=== PATIENT | male | born 1950 | race Caucasian/White ===

== ENCOUNTER 2022-02-25 08:01 | Outpatient (REF) | payer MEDICARE, SELFPAY ==
--- NOTE | ~2022-02-25 | XR_ITS ---
EXAMINATION: XR LUMBOSACRAL SPINE CLINICAL INFORMATION: M54.50 - Low back pain, unspecified COMPARISON: None TECHNIQUE: Three views of the lumbosacral spine. FINDINGS: There is normal segmentation with 5 nonrib-bearing lumbar vertebrae. There is mild loss of height vertebral body L1, possibly chronic. There is bridging anterior osteophyte at T12-L1 and partial anterior bridging osteophyte L1-L2. There are degenerative disc changes lower thoracic spine. Prominent lumbar degenerative disc changes are present at L4-L5 with prominent disc narrowing, endplate sclerosis, and vertebral osteophytes. Lesser degenerative disc changes at L3-L4. Facet degeneration is greatest from L3-S1. The SI joints and visualized sacrum are unremarkable. There is a left hip replacement. XR/XR lumbar spine 2-3V IMPRESSION: -Mild loss of height vertebral body L1, possibly chronic with associated bridging anterior osteophyte. -Prominent degenerative disc changes L4-L5. Lesser degenerative disc changes L5 L3-04. -Multilevel facet degeneration, L3-S1.
[2022-02-25 11:26] LABS: MANUAL DIFF FLAG NO
[2022-02-25 11:26] LABS: Appearance Urine HAZY; Color Urine YELLOW; Glucose Urine UA NEG (NEG); Leukocyte Esterase Urine NEG (NEG); Nitrite Urine NEG (NEG); Specific Gravity - Urine 1.025 (1.005-1.025); Urine Blood NEG (NEG); Urine Ketones NEG (NEG); Urine Protein NEG (NEG-TRACE)
[2022-02-25 11:33] LABS: Basophils Percent Auto 0.9 % (0-2); Eosinophils Absolute Auto 0.5 X10*3/uL (0.0-0.4); Eosinophils Percent Auto 10.6 % (0-4); Hematocrit 44.3 % (42.0-52.0); Hemoglobin 14.9 g/dl (14.0-18.0); Imm Gran Abs Auto 0.01 X10*3/uL (0.00-0.03); Imm Gran Pct Auto 0.2 % (0.0-0.4); Lymphocytes Absolute Auto 1.6 X10*3/uL (1.2-4.9); Lymphocytes Percent Auto 35.4 % (20-40); Mean Corpuscular HGB Conc 33.6 g/dl (31.0-36.0); Mean Corpuscular Hemoglobin 31.9 pg (27.0-33.0); Mean Corpuscular Volume 94.9 fL (80.0-98.0); Mean Platelet Volume 9.4 fL (9.4-12.4); Monocytes Absolute Auto 0.5 X10*3/uL (0.1-1.2); Monocytes Percent Auto 11.3 % (2-11); Neutrophils Absolute Auto 1.8 x10*3/uL (2.0-8.3); Neutrophils Percent Auto 41.6 % (45-73); Platelet Count 254 X10*3/uL (160-400); Red Blood Count 4.67 X10*6/uL (4.60-5.80); Red Cell Distribution Width 11.9 % (11.0-16.0); White Blood Count 4.4 X10*3/uL (4.8-10.8)
[2022-02-25 12:11] LABS: Prostate Specific Antigen Scr 0.49 ng/mL (<0.05-4.0)
[2022-02-25 12:12] LABS: Alanine Aminotransferase 32 U/L (0-40); Albumin Level 4.5 g/dL (3.5-5.0); Alkaline Phosphatase 92 U/L (39-117); Anion Gap 13 (12-20); Aspartate Amino Transferase 37 U/L (5-37); Bilirubin Total 0.6 mg/dL (0.0-1.0); Blood Urea Nitrogen 10 mg/dL (9-16); Calcium 9.5 mg/dL (8.4-10.2); Carbon Dioxide 28 mmol/L (22-29); Chloride 103 mmol/L (96-108); Cholesterol 236 mg/dL; Estimated Glomerular Filt Rate > 60; Glucose Fasting 102 mg/dL (60-99); HDL Cholesterol 80 mg/dL; LDL Cholesterol Calculated 143 mg/dl; Potassium 4.5 mmol/L (3.3-5.1); Sodium 139 mmol/L (135-145); Total Protein 7.7 g/dL (6.5-8.0); Triglycerides 69 mg/dL
== END 2022-02-25 08:02 | disposition home or self-care (01) ==
LOC: HO.HMGCLDS 08:01
PROVIDERS: Visit Provider Nurse Practitioner Family
DX: Z12.5 Encounter for screening for malignant neoplasm of prostate (principal); M54.50 Low back pain, unspecified; I10 Essential (primary) hypertension
CPT/HCPCS: 36415; 72100; 80053; 80061; 81003; 84153; 84443; 85025

== ENCOUNTER 2022-04-26 07:41 | Outpatient (REF) | payer MEDICARE, SELFPAY ==
[2022-04-26 11:49] LABS: Cholesterol 233 mg/dL; HDL Cholesterol 80 mg/dL; LDL Cholesterol Calculated 138 mg/dl; Triglycerides 75 mg/dL
== END 2022-04-26 07:42 | disposition home or self-care (01) ==
LOC: HO.HMGCLDS 07:41
PROVIDERS: Visit Provider Nurse Practitioner Family
DX: E78.5 Hyperlipidemia, unspecified (principal)
CPT/HCPCS: 36415; 80061

== ENCOUNTER 2022-06-25 11:32 | Outpatient (REF) | payer MEDICARE, SELFPAY ==
--- NOTE | ~2022-06-25 | XR_ITS ---
EXAMINATION: XR ANKLE, RIGHT CLINICAL INFORMATION: M25.571 - Pain in right ankle and joints of right foot COMPARISON: None TECHNIQUE: AP, lateral, and mortise views of the right ankle. FINDINGS: There is no fracture, dislocation, destructive process. The ankle mortise is symmetric. There is no ankle joint narrowing or erosive change or chondrocalcinosis. No visible osteochondral lesion talar dome. There are 2 incidental corticated ossicles adjacent to tip medial malleolus. There is borderline plantar calcaneal spur and larger posterior calcaneal spur with some corticated mineralization in the distal Achilles. The retrocalcaneal recess is preserved. Subtalar joint is unremarkable. There are scattered atherosclerotic calcifications vasculature. XR/XR ankle RT min 3V IMPRESSION: -No fracture or destructive process. -No ankle or subtalar joint narrowing. -Posterior and plantar calcaneal spurs.
== END 2022-06-25 11:33 | disposition home or self-care (01) ==
LOC: HO.HMGCX 11:32
PROVIDERS: PCP Nurse Practitioner Family; Visit Provider Nurse Practitioner Family
DX: M25.571 Pain in right ankle and joints of right foot (principal)
CPT/HCPCS: 73610

== ENCOUNTER 2022-09-20 09:02 | Outpatient (REF) | payer MEDICARE, SELFPAY ==
[2022-09-20 11:22] LABS: Appearance Urine Clear; Color Urine Dark Yellow; Glucose Urine UA Negative (Negative); Leukocyte Esterase Urine Negative (Negative); Nitrite Urine Negative (Negative); UMIC TRIGGER UACC YES; Urine Blood Negative (Negative); Urine Ketones Trace mg/dL (Negative); Urine Protein 100 (2+) mg/dL (Neg-Trace)
[2022-09-20 11:34] LABS: Bacteria Urine None Seen (None Seen); Hyaline Casts Urine >20 /LPF (0-2); RBC Urine 0-2 /HPF (0-2); WBC Urine 0-5 /HPF (0-5)
== END 2022-09-20 09:03 | disposition home or self-care (01) ==
LOC: HO.HMGCLDS 09:02
PROVIDERS: PCP Nurse Practitioner Family; Visit Provider Nurse Practitioner Family
DX: I10 Essential (primary) hypertension (principal); E78.5 Hyperlipidemia, unspecified
CPT/HCPCS: 81001

== ENCOUNTER 2022-10-12 08:06 | Outpatient (REF) | payer MEDICARE, SELFPAY ==
[2022-10-12 11:19] LABS: MANUAL DIFF FLAG NO
[2022-10-12 11:35] LABS: Basophils Absolute Auto 0.1 X10*3/uL (0.0-0.2); Basophils Percent Auto 1.1 % (0-2); Eosinophils Absolute Auto 0.5 X10*3/uL (0.0-0.4); Eosinophils Percent Auto 9.8 % (0-4); Hematocrit 40.7 % (42.0-52.0); Hemoglobin 13.8 g/dl (14.0-18.0); Imm Gran Abs Auto 0.01 X10*3/uL (0.00-0.03); Imm Gran Pct Auto 0.2 % (0.0-0.4); Lymphocytes Absolute Auto 1.5 X10*3/uL (1.2-4.9); Lymphocytes Percent Auto 32.8 % (20-40); Mean Corpuscular HGB Conc 33.9 g/dl (31.0-36.0); Mean Corpuscular Hemoglobin 32.1 pg (27.0-33.0); Mean Corpuscular Volume 94.7 fL (80.0-98.0); Mean Platelet Volume 9.4 fL (9.4-12.4); Monocytes Absolute Auto 0.5 X10*3/uL (0.1-1.2); Neutrophils Absolute Auto 2.1 x10*3/uL (2.0-8.3); Neutrophils Percent Auto 46.1 % (45-73); Platelet Count 255 X10*3/uL (160-400); Red Cell Distribution Width 12.1 % (11.0-16.0); White Blood Count 4.6 X10*3/uL (4.8-10.8)
[2022-10-12 12:19] LABS: Alanine Aminotransferase 28 U/L (0-40); Albumin Level 4.5 g/dL (3.5-5.0); Alkaline Phosphatase 84 U/L (39-117); Anion Gap 15 (12-20); Aspartate Amino Transferase 33 U/L (5-37); Bilirubin Total 0.6 mg/dL (0.0-1.0); Blood Urea Nitrogen 10 mg/dL (9-16); Carbon Dioxide 25 mmol/L (22-29); Chloride 101 mmol/L (96-108); Cholesterol 184 mg/dL; Estimated Glomerular Filt Rate > 60; Glucose Fasting 96 mg/dL (60-99); HDL Cholesterol 77 mg/dL; LDL Cholesterol Calculated 89 mg/dl; Potassium 4.2 mmol/L (3.3-5.1); Sodium 137 mmol/L (135-145); Total Protein 7.3 g/dL (6.5-8.0); Triglycerides 92 mg/dL
[2022-10-12 12:41] LABS: TSH reflex Free T4 1.82 uIU/mL (0.32-4.0)
== END 2022-10-12 08:07 | disposition home or self-care (01) ==
LOC: HO.HMGCLDS 08:06
PROVIDERS: PCP Nurse Practitioner Family; Visit Provider Nurse Practitioner Family
DX: E78.5 Hyperlipidemia, unspecified (principal); I10 Essential (primary) hypertension
CPT/HCPCS: 36415; 80053; 80061; 84443; 85025

== ENCOUNTER 2022-11-18 11:44 | Outpatient (REF) | payer MEDICARE, SELFPAY ==
[2022-11-18 13:54] LABS: Hematocrit 37.7 % (42.0-52.0); Hemoglobin 13.4 g/dl (14.0-18.0); MANUAL DIFF FLAG NO; Mean Corpuscular Volume 91.7 fL (80.0-98.0); Red Blood Count 4.11 X10*6/uL (4.60-5.80); White Blood Count 7.1 X10*3/uL (4.8-10.8)
[2022-11-18 13:55] LABS: Basophils Absolute Auto 0.1 X10*3/uL (0.0-0.2); Basophils Percent Auto 0.7 % (0-2); Eosinophils Absolute Auto 0.4 X10*3/uL (0.0-0.4); Eosinophils Percent Auto 5.5 % (0-4); Imm Gran Abs Auto 0.01 X10*3/uL (0.00-0.03); Imm Gran Pct Auto 0.1 % (0.0-0.4); Lymphocytes Absolute Auto 1.1 X10*3/uL (1.2-4.9); Lymphocytes Percent Auto 15.8 % (20-40); Mean Corpuscular HGB Conc 35.5 g/dl (31.0-36.0); Mean Corpuscular Hemoglobin 32.6 pg (27.0-33.0); Mean Platelet Volume 9.5 fL (9.4-12.4); Monocytes Absolute Auto 1.1 X10*3/uL (0.1-1.2); Monocytes Percent Auto 15.2 % (2-11); Neutrophils Absolute Auto 4.5 x10*3/uL (2.0-8.3); Neutrophils Percent Auto 62.7 % (45-73); Platelet Count 282 X10*3/uL (160-400); Red Cell Distribution Width 11.9 % (11.0-16.0)
== END 2022-11-18 11:45 | disposition home or self-care (01) ==
LOC: HO.HMGCLDS 11:44
PROVIDERS: PCP Nurse Practitioner Family; Visit Provider Nurse Practitioner Family
DX: D64.9 Anemia, unspecified (principal)
CPT/HCPCS: 36415; 85025

== ENCOUNTER 2023-02-07 07:19 | Outpatient (REF) | payer MEDICARE, SELFPAY ==
[2023-02-07 11:27] LABS: Appearance Urine Clear; Color Urine Yellow; Glucose Urine UA Negative (Negative); Leukocyte Esterase Urine Negative (Negative); Nitrite Urine Negative (Negative); PH 5.5 (5.0-9.0); Specific Gravity - Urine 1.015 (1.005-1.025); Urine Blood Negative (Negative); Urine Ketones Negative (Negative); Urine Protein Negative (Neg-Trace)
[2023-02-07 11:36] LABS: Immature Retic Fraction 7.3 % (2.3-13.4); Retic HGB Equivalent 38.2 pg (30.0-35.0); Reticulocyte Percent 1.4 % (0.5-1.8); Reticulocytes Absolute 0.064 X10*6/uL (0.026-0.095)
[2023-02-07 12:40] LABS: Ferritin 213 ng/mL (20-250); Folate 16.2 ng/mL (> or = 4.0); Prostate Specific Antigen Scr 0.57 ng/mL (<0.05-4.0); Vitamin B12 600 pg/mL (200-900)
== END 2023-02-07 07:20 | disposition home or self-care (01) ==
LOC: HO.HMGCLDS 07:19
PROVIDERS: PCP Nurse Practitioner Family; Visit Provider Nurse Practitioner Family
DX: Z12.5 Encounter for screening for malignant neoplasm of prostate (principal); D64.9 Anemia, unspecified; E78.5 Hyperlipidemia, unspecified; I10 Essential (primary) hypertension
CPT/HCPCS: 36415; 81003; 82607; 82728; 82746; 84153; 85045

== ENCOUNTER 2023-03-08 10:53 | Outpatient (REF) | payer MEDICARE, SELFPAY ==
[2023-03-08 13:58] LABS: MANUAL DIFF FLAG NO
[2023-03-08 14:09] LABS: Basophils Absolute Auto 0.1 X10*3/uL (0.0-0.2); Basophils Percent Auto 0.9 % (0-2); Eosinophils Absolute Auto 0.2 X10*3/uL (0.0-0.4); Eosinophils Percent Auto 3.9 % (0-4); Hematocrit 40.8 % (42.0-52.0); Imm Gran Abs Auto 0.02 X10*3/uL (0.00-0.03); Imm Gran Pct Auto 0.4 % (0.0-0.4); Lymphocytes Absolute Auto 1.2 X10*3/uL (1.2-4.9); Lymphocytes Percent Auto 21.7 % (20-40); Mean Corpuscular HGB Conc 34.3 g/dl (31.0-36.0); Mean Corpuscular Hemoglobin 32.7 pg (27.0-33.0); Mean Corpuscular Volume 95.3 fL (80.0-98.0); Mean Platelet Volume 9.4 fL (9.4-12.4); Monocytes Absolute Auto 0.7 X10*3/uL (0.1-1.2); Monocytes Percent Auto 11.4 % (2-11); Neutrophils Absolute Auto 3.5 x10*3/uL (2.0-8.3); Neutrophils Percent Auto 61.7 % (45-73); Platelet Count 254 X10*3/uL (160-400); Red Blood Count 4.28 X10*6/uL (4.60-5.80); Red Cell Distribution Width 12.3 % (11.0-16.0); White Blood Count 5.7 X10*3/uL (4.8-10.8)
[2023-03-08 14:27] LABS: Iron 102 mcg/dL (45-160); Percent Iron Saturation 32 % (15-50); Total Iron Binding Capacity 321 mcg/dL (228-428); Unsaturated Iron Binding 219 ug/dL
== END 2023-03-08 10:54 | disposition home or self-care (01) ==
LOC: HO.HMGCLDS 10:53
PROVIDERS: PCP Nurse Practitioner Family; Visit Provider Nurse Practitioner Family
DX: D64.9 Anemia, unspecified (principal)
CPT/HCPCS: 36415; 83540; 85025

== ENCOUNTER 2023-05-09 07:45 | Outpatient (AMB) | payer MEDICARE, SELFPAY ==
[2023-05-09 07:53] VITALS: BP 122/76; PULSE 67; O2SAT 93; BMI 24.5
--- NOTE | 2023-05-09 07:53 | MHC.PC.OV ---
Vital Signs 05/09/23 07:53 Height 5 ft 9 in Weight 166 lb 2 oz BMI 24.5 BP 122/76 Blood Pressure Location Rt brachial Position Sitting Pulse 67 Pulse Source Pulse Oximeter Pulse Oximetry (%) 93 Oxygen Delivery Method Room Air Intake Visit Reasons: Annual PE Allergies No Known Allergies [No Known Allergies*] Allergy (Verified 05/09/23 07:56) Tobacco use date assessed: 05/09/23 Fall risk assessment: No Falls in past year Last assessed Fall Risk: 05/09/23 Dental Screening Dental Screen Date: 05/09/23 Did you have a dental visit in the last 12 months?: Yes Did you have a dental problem in the last 6 months where you did not have access to dental care?: No Was dental information given to patient?: Patient has dentist HPI Annual PE HPI Details Pt is here for a PE. Will order labs. PSA is up to date. Denies dribbling with urination, nocturia, and incomplete bladder emptying. He does report weak stream, refuses CHRISTA. BP stable at home (pt brought in values). Pt will call to schedule an appointment with GI for his colon screen. Instructed pt to obtain his PCV20 vaccine from the pharmacy. Cerumen noted to right ear, pt will clean this himself. PFSH Surgical History History of cervical spinal surgery History of elbow surgery History of hip surgery History of knee surgery History of shoulder surgery Previous back surgery Family History Paternal Grandfather Substance use disorder Social History Housing: House Alcohol intake: current Alcohol intake frequency: 0-2 drinks per day Alcohol type: beer and hard liquor Patient Tobacco Use Status: Former Tobacco user Quit Date: 06/22/2017 Tobacco use type: Cigarette e-Cigarette/Vaping Use: Never Used Second Hand Smoke Exposure: No service: No Current occupational status: retired Cognitive needs: No Hearing needs: No Vision needs: No Questionnaire PHQ-9 Over the last 2 weeks, how often have you been bothered by any of the following problems? 1. Little interest or pleasure in doing things: not at all 2. Feeling down, depressed, or hopeless: not at all 3. Trouble falling or staying asleep, or sleeping too much: several days 4. Feeling tired or having little energy: several days 5. Poor appetite or overeating: not at all 6. Feeling bad about yourself - or that you are a failure or have let yourself or your family down: not at all 7. Trouble concentrating on things, such as reading the newspaper or watching television: not at all 8. Moving or speaking so slowly that other people could have noticed. Or the opposite - being so fidgety or restless that you have been moving around a lot more than usual: not at all 9. Thoughts that you would be better off or of hurting yourself in some way: not at all Total score: 2 Source: Developed by Drs. Dustin Galarza, June Bellamy, William Lopez and colleagues, with an educational janice from [employer]. Thrive Questionnaire Date Thrive assessed: 05/09/23 I am a: Patient What is your living situation today?: I have a steady place to live Within the past 12 months, did the food you bought not last and you didn't have the money to get more?: Never true Within the past 12 months, did you worry whether your food would run out before you got money to buy more?: Never true Do you have trouble paying for medicines?: No Do you have trouble getting transportation to medical appointments?: No Do you have trouble paying your heating and electricity bill?: No Do you have trouble taking care of your child, family member or friend?: No Do you have trouble with day-to-day activities such as bathing, preparing meals, shopping, managing finances, etc.?: No Are you currently unemployed and looking for a job?: No Are you interested in more education?: No AUDIT C Alcohol Use Questionnaire (AUDIT-C) 1. How often do you have a drink containing alcohol?: 4 or more times a week 2. How many drinks containing alcohol do you have on a typical day when you are drinking?: 3 or 4 3. How often do you have six or more drinks on one occasion?: Never Total Score: 5 GERDA-7 AMB Questionnaire GERDA-7 Date GERDA - 7 assessed: 05/09/23 Feeling nervous, anxious, or on edge: 0 = Not at all Not being able to stop or control worryin = Not at all Worrying too much about different things: 0 = Not at all Trouble relaxin = Not at all Being so restless that it is hard to sit still: 0 = Not at all Becoming easily annoyed or irritable: 0 = Not at all Feeling afraid as if something awful might happen: 0 = Not at all Total GERDA-7 score (0-4 normal; 5-9 mild; 10-14 moderate; 15-21 severe): 0 Source: Developed by Drs. Dustin Galarza, June Bellamy, William Lopez and colleagues, with an educational janice from [employer]. Review of Systems Const Denies chills and Denies fever(s) Eyes Denies blurry vision ENT Denies vertigo, Denies dizziness and Denies sore throat Card Denies chest pain at rest, Denies chest pain with activity, Denies diaphoresis, Denies dyspnea and Denies dyspnea on exertion Resp Denies cough, Denies dyspnea, Denies dyspnea on exertion and Denies wheezing GI Denies abdominal pain, Denies melena, Denies hematochezia, Denies constipation, Denies diarrhea and Denies loose stools Denies hematuria Musc Denies numbness and Denies tingling Skin/Breast Denies lesions Neuro Denies vertigo, Denies dizziness, Denies numbness and Denies tingling Psych Denies anxiety, Denies depression, Denies homicidal ideation, Denies suicidal ideation and Denies other (substance abuse) Aller/Immun Denies wheezing Physical exam (Primary Care) Vital Signs: Last Vital Signs Pulse 67 05/09/23 07:53 BP 122/76 05/09/23 07:53 Pulse Ox 93 05/09/23 07:53 Oxygen Delivery Method Room Air 05/09/23 07:53 BMI result Body Mass Index 24.5 Tobacco/Smoking Status: Tobacco use Status Tobacco use date assessed 05/09/23 05/09/23 08:00 Patient Tobacco Use Status Former Tobacco user 05/09/23 07:53 Tobacco use type Cigarette 05/09/23 07:53 e-Cigarette/Vaping Use Never Used 05/09/23 07:53 Thrive Assessment: Date of Thrive Assessment Date Thrive assessed 02/01/22 05/09/23 07:53 Const General: cooperative Nutritional Appearance: well nourished Orientation/consciousness: patient oriented x3 HENMT Other: cerumen noted to right ear Head: Yes normal to inspection, Yes normocephalic and Yes atraumatic Ears: TM normal on the left Eyes General: appearance normal, both eyes and all related structures Alignment and Position: alignment normal and position normal Neck Neck: Yes normal visual inspection and Yes no lymphadenopathy Thyroid: Thyroid normal Resp Effort & Inspection: normal respiratory effort Auscultation: clear to auscultation bilaterally Cardio Rate: regular rate Rhythm: regular rhythm Heart sounds: S1 normal heart sound present, S2 normal heart sound present and no murmurs GI Palpation (GI): Soft to palpation and nontender Auscultation: normal bowel sounds Male General Exam: Yes normal external exam Penis: normal penis Scrotum: scrotum normal, testes descended bilaterally and no inguinal hernias Testes: no testicular mass Skin Rashes: no rashes Neuro General: patient oriented x3, moves all extremities, no focal motor deficits and deep tendon reflexes 2+ bilaterally Romberg Test: Negative Psych Appearance: grossly normal Mental Status: mental status grossly normal Speech and movement: Normal speech and movement present Affect: normal affect Attitude: cooperative Thought process: Normal thought process present Thought content: Normal thought content present Insight: Good insight present (Psych) Judgement: Good judgement present (Psych) Assessment and Plan Assessment & Plan (1) Physical exam: Code(s): Z00.00 - Encounter for general adult medical examination without abnormal findings Plan: Labs ordered (2) HTN (hypertension): Code(s): I10 - Essential (primary) hypertension Plan: BPs from home are stable (3) Cerumen impaction: Comment: pt plans to flush ear himself (kit) Code(s): H61.20 - Impacted cerumen, unspecified ear Plan The patient agreed to the use of a medical record consultant for this encounter. Scribed for ANAT Riley by Aniya Hoang medical record consultant, on 05/09/2023 at 08:05 EST. Orders: Orders AMB EKG-In Office Today Z00.00 - Encounter for general adult medical examination without abnormal findings Coding Level of Care Code Est Pt Prev Care >65y(31676) Diagnoses Physical exam Z00.00 HTN (hypertension) I10 Cerumen impaction H61.20
== END 2023-05-09 08:43 | disposition home or self-care (01) ==
PROVIDERS: Visit Provider Nurse Practitioner Family
DX: Z00.00 Encounter for general adult medical examination without abnormal findings (principal); I10 Essential (primary) hypertension; H61.21 Impacted cerumen, right ear
CPT/HCPCS: 99397

== ENCOUNTER 2023-06-07 08:31 | Outpatient (AMB) | payer MEDICARE, SELFPAY ==
--- OUTSIDE RECORDS SUMMARY | 2023-06-07 08:33 | XMS_ITS | Continuity of Care Document ---
Author Name Unknown Organization [facility] ter Address [address] [place] [id number] Care Team Providers Care Direct Sales Representative Name Role Phone Kathy Levi MD Primary Care Physician Encounter [facility] Date(s): 06/05/21 - 08/28/[address] [id number] Attending Physician: Kathy Levi MD Admitting Physician: Kathy Levi MD Referring Physician: Kathy Levi MD Allergies, Adverse Reactions, Alerts Substance Reaction Severity Status NKA Active Immunizations Given and Recorded Vaccine Date Status Refusal Reason influenza virus vaccine, inactivated 07/07/21 Fabian rded influenza virus vaccine, inactivated 1 06/19/20 Re corded influenza virus vaccine, inactivated 06/23/18 Fabian rded influenza virus vaccine, inactivated 07/08/17 Fabian rded influenza virus vaccine, inactivated 06/22/17 Fabian rded influenza virus vaccine, inactivated 09/24/16 Give n influenza virus vaccine, inactivated 06/10/15 Fabian rded influenza virus vaccine, inactivated 2 07/10/14 Re corded influenza virus vaccine, inactivated 07/10/14 Fabian rded influenza virus vaccine, inactivated 3 07/24/13 Re corded influenza virus vaccine, inactivated 4 07/24/10 Gi liliana influenza virus vaccine, inactivated 10/17/09 Give n influenza virus vaccine, inactivated 5 08/11/08 Gi liliana zoster vaccine, inactivated 06/30/21 Recorded zoster vaccine, inactivated 03/30/21 Recorded pneumococcal 23-valent vaccine 04/07/21 Given pneumococcal 23-valent vaccine 07/19/10 Given SARS-CoV-2 (COVID-19) mRNA BNT-162b2 vac 01/19/21 Recorded SARS-CoV-2 (COVID-19) mRNA BNT-162b2 vac 12/29/20 Recorded Influenza Virus Vaccine (oldterm) 6 08/10/19 Recor ded tetanus-diphtheria toxoids (Td) 7 09/18/18 Recorde d tetanus-diphtheria toxoids (Td) 01/18/99 Given pneumococcal 13-valent vaccine 09/27/17 Given Fluvirin (oldterm) 8 07/19/14 Recorded Zoster Vaccine Live 9 07/10/14 Recorded FluLaval (oldterm) 07/20/12 Given Tet/Diphth/Acel, Pertussis (oldterm) 04/08/09 Give n 1Result Comment: FLUAD HIGH DOSE SEE FORM 2Result Comment: [08/15/2014] received at [facility] 3Result Comment: [08/31/2013] pt had at [employer] (employer) 4Admin Note: at work 5Admin Note: 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 fluzone high dose 7Location History: [facility] 8Result Comment: [07/25/2014] SAL 9Result Comment: [08/15/2014] received at [facility] Medications acetaminophen 325 mg oral tablet 650 mg, 2, tablet, By Mouth, Every 6 hours, May take OTC not to exceed 3000 mg/day, Refills 0, Maintenance, 06/26/21 11:01:00 EDT, Partial fill upon patient request if the prescription is for a schedule II opioid drug. Start Date: 06/26/21 Status: Ordered celecoxib 200 mg oral capsule 1 capsule = 200 mg, By Mouth, Daily, # 30 capsule, 0 Refills, Maintenance, 06/26/21 10:57:00 EDT, Capsule, [facility], Partial fill upon patient request if the prescription is for a schedule II opioid drug., 175, bobby, 05/18/21 14:06:00 ED... Start Date: 06/26/21 Status: Ordered docusate sodium 100 mg oral tablet = 100 mg, By Mouth, 2 times a day, # 60 tablet, 0 Refills, Maintenance, 06/26/21 10:57:00 EDT, Tablet, [facility], Partial fill upon patient request if the prescription is for a schedule II opioid drug., 175, cm, 05/18/21 14:06:00 EDT, H... Start Date: 06/26/21 Stop Date: 07/26/21 Status: Ordered Ecotrin 325 mg oral delayed release tablet 1 tablet = 325 mg, By Mouth, 2 times a day, # 60 tablet, 0 Refills, Maintenance, 06/26/21 10:56:00 EDT, EC Tablet, [facility], Partial fill upon patient request if the prescription is for a schedule II opioid drug., 175, cm, 05/18/21 14:... Start Date: 06/26/21 Stop Date: 07/26/21 Status: Ordered Problem List Condition Effective Dates Status Health Status Inform ant Anxiety(Confirmed) Active Justice's esophagus(Confirmed) Active Cervical radiculopathy(Confirmed) 1 11/30/05 Active Diverticulosis(Confirmed) 2 Active Hemorrhoids(Confirmed) Active Herniation of intervertebral disc(Confirmed) 3, 4 10/18/08 Active Hypercholesterolemia(Confirmed) Active Hypertension(Confirmed) 02/23/07 Active Impaired fasting glucose(Confirmed) 10/01/15 Active Low back pain(Confirmed) Active OM - Onychomycosis(Confirmed) Active Osteoarthritis(Confirmed) 05/01/10 Active Adenomatous polyp(Confirmed) Active 1left sided 2moderate diverticulosis colonoscopy 08/13 3left lateral L4-[address] Rosenberg 4lumbar surgery Dr. Jorge garcia 04 Social History Social History Type Response Smoking Status Former smoker, quit more than 30 days ago; Number of years: 38; Total pack years: 20; Started at age: 27; Stopped at age: 67; entered on: 10/01/19 Sex
--- OUTSIDE RECORDS SUMMARY | 2023-06-07 08:33 | XMS_ITS | Continuity of Care Document ---
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 Name Role Phone Kathy Levi MD Primary Care Physician [phone] [place] [facility] [place]22/21 - 06/27/[address] [address]- Encounter Diagnosis Closed fracture of left hip(Final) - 06/24/21 Discharge Disposition: A-Transfer VNA/Home Health Attending Physician: Frederic Ortiz MD Admitting Physician: Modesta BRAVO, Kati Hickey Referring Physician: Not on Staff, Referring MD Allergies, Adverse Reactions, Alerts Substance Reaction Severity Status NKA Active Immunizations Given and Recorded Vaccine Date Status Refusal Reason pneumococcal 23-valent vaccine 04/07/21 Given pneumococcal 23-valent vaccine 07/19/10 Given zoster vaccine, inactivated 03/30/21 Recorded SARS-CoV-2 (COVID-19) mRNA BNT-162b2 vac 01/19/21 Recorded SARS-CoV-2 (COVID-19) mRNA BNT-162b2 vac 12/29/20 Recorded influenza virus vaccine, inactivated 1 06/19/20 Re [...] virus vaccine, inactivated 5 08/11/08 Gi liliana Influenza Virus Vaccine (oldterm) 6 08/10/19 Recor ded tetanus-diphtheria toxoids (Td) 7 09/18/18 Recorde d tetanus-diphtheria toxoids (Td) 01/18/99 Given pneumococcal 13-valent vaccine 09/27/17 Given Fluvirin (oldterm) 8 07/19/14 Recorded Zoster Vaccine Live 9 07/10/14 Recorded FluLaval (oldterm) 07/20/12 Given Tet/Diphth/Acel, Pertussis (oldterm) 04/08/09 Give n 1Result Comment: FLUAD HIGH DOSE SEE FORM 2Result Comment: [08/15/2014] received at [facility] 3Result Comment: [08/31/2013] pt had at [employer] (employer) 4Admin Note: at work 5Admin Note: naseem richardofi pasteur 6Result Comment: rec. fluzone high dose 7Location History: [facility] 8Result Comment: [07/25/2014] [facility] 9Result Comment: [08/15/2014] received at [facility] Medications acetaminophen 325 mg oral tablet 650 [...] 0 Refills, Maintenance, 06/26/21 10:57:00 EDT, Capsule, [facility], Partial fill upon patient request if the prescription is for a schedule II opioid drug., 175, bobby, 05/18/21 14:06:00 ED... Start Date: 06/26/21 Status: Ordered docusate sodium 100 mg oral tablet = 100 mg, By Mouth, 2 times a day, # 60 tablet, 0 Refills, Maintenance, 06/26/21 10:57:00 EDT, Tablet, [facility], Partial fill upon patient request if the prescription is for a schedule II opioid drug., 175, cm, 05/18/21 14:06:00 EDT, H... Start Date: 06/26/21 Stop Date: 07/26/21 Status: Ordered Ecotrin 325 mg oral delayed release tablet 1 tablet = 325 mg, By Mouth, 2 times a day, # 60 tablet, 0 Refills, Maintenance, 06/26/21 10:56:00 EDT, EC Tablet, [facility], Partial fill upon patient request if the prescription is for a schedule II opioid drug., 175, cm, 05/18/21 14:... Start Date: 06/26/21 Stop Date: 07/26/21 Status: Ordered oxyCODONE 5 mg oral tablet 10 mg, Tablet, By Mouth, Every 4 hours, PRN for Pain , Severe, Routine, 06/26/21 8:05:00 EDT Start Date: 06/26/21 Stop Date: 06/27/21 Status: Discontinued oxyCODONE 5 mg oral tablet See Instructions, PRN, Take 1-2 tablet By Mouth Every 4 hours PRN pain, # 60 tablet, Refills 0, Tot. Refills 0, Acute 07/03/21 11:00:00 EDT, Pain , Severe, 06/26/21 10:59:00 EDT, Instructions ReplaceRequired Details, Route to Pharmacy Electronically,... Start Date: 06/26/21 Stop Date: 07/03/21 Status: Ordered Protonix 40 mg oral delayed release tablet = 40 mg, By Mouth, Daily, # 30 tablet, 0 Refills, Maintenance, 06/26/21 10:57:00 EDT, EC Tablet, 175, cm, 05/18/21 14:06:00 EDT, Height, 73, kg, 03/12/21 7:31:00 EDT, Dry Weight Start Date: 06/26/21 Stop Date: 07/26/21 Status: Ordered traMADol 50 mg oral tablet See Instructions, PRN Pain , Mild, Take 1-2 tablet By Mouth Every 4-6 hours not to exceed 400 mg/day, # 56 tablet, 0 Refills, Acute 07/03/21 11:04:00 EDT, 06/26/21 11:04:00 EDT, Tablet, [facility], Partial fill upon patient request if... Start Date: 06/26/21 Stop Date: 07/03/21 Status: Ordered Problem List Condition Effective Dates [...] 3left lateral L4-[address] Rosenberg 4luar surgery Dr. Patel summer Results Radiology Reports * Exam Date Time Procedure Performing Provider Status 06/25/21 10:59 PM Pelvis 1 or 2 Views Laura Minaya; Auth (Verified) Notes: (Pelvis 1 or 2 Views) Reason For Exam: Postop Prosthesis;Postop Prosthesis RESULT: Pelvis 1 or 2 Views PROCEDURE: Pelvis 1 or 2 Views CLINICAL INDICATION: 71 years old Male with Reason: Postop Prosthesis; Clinical Question(s): Statusof Hip Prosthesis; Special Instructions: LEFT Hip - Do today at 2200. COMPARISONS: Fluoroscopy images from earlier today. FINDINGS: Status post total left hip arthroplasty with no evidence of hardware failure or complication. Expected soft tissue swelling and emphysema about the left hip. Mild osteoarthritic changes in the right hip joint. Well-corticated small bone fragments adjacent to the right greater trochanter likely represent fragmented enthesophytes. Surgical clips in the scrotum. There are vascular calcifications. IMPRESSION: 1. Status post total left hip arthroplasty with no evidence of hardware failure or complication. Thank you for allowing me to participate in the care of this patient. WSN: [id number] Ordering Physician: Luz Elena Carmona Dictated By: Jade Johnson MD Dictated Date/Time: 06/25/21 11:01 p Reviewed By: Jade Johnson MD Signed By: Jade Johnson MD Signed Date/Time: 06/25/21 11:01 pm Transcribed By: MARIA L Transcribed Date/Time: 06/25/21 11:00 pm * Exam Date Time Procedure Performing Provider Status 06/25/21 4:25 PM C-Arm < 1 Hour Natalia Gomes; Auth (Verified) Notes: (C-Arm < 1 Hour) Reason For Exam: L total hip RESULT: C-Arm < 1 Hour Pelvis 1 or 2 Views, C-Arm < 1 Hour Reason: left hip fracture, left total hip replacement, anterior approach COMPARISON: 2021 FINDINGS: 15 intraoperative fluoroscopic spot images submitted during ongoing left hip arthroplasty. Technologist time: 30 minutes Fluoroscopy time: 8 seconds IMPRESSION: See above WSN: [id number] Ordering Physician: Frederic Ortiz Dictated By: Yaniv Juarez MD Dictated Date/Time: 06/25/21 4:31 pm Reviewed By: Yaniv Juarez MD Signed By: Yaniv Juarez MD Signed Date/Time: 06/25/21 4:31 pm Transcribed By: MARIA L Transcribed Date/Time: 06/25/21 4:30 pm * Exam Date Time Procedure Performing Provider Status 06/25/21 4:25 PM Pelvis 1 or 2 Views Kaylin Barros; Auth (Verified) Notes: (Pelvis 1 or 2 Views) Reason For Exam: left hip fracture, left total hip replacement, anterior approach RESULT: Pelvis 1 or 2 Views Pelvis 1 or 2 Views, C-Arm < 1 Hour Reason: left hip fracture, left total hip replacement, anterior approach COMPARISON: 2021 FINDINGS: 15 intraoperative fluoroscopic spot images submitted during ongoing left hip arthroplasty. Technologist time: 30 minutes Fluoroscopy time: 8 seconds IMPRESSION: See above WSN: [id number] Ordering Physician: Frederic Ortiz Dictated By: Yaniv Juarez MD Dictated Date/Time: 06/25/21 4:31 pm Reviewed By: Yaniv Juarez MD Signed By: Yaniv Juarez MD Signed Date/Time: 06/25/21 4:31 pm Transcribed By: CSNatalie Transcribed Date/Time: 06/25/21 4:30 pm * Exam Date Time Procedure Performing Provider Status 06/22/21 10:14 AM Chest 2 Views Frontal and Lat Dorcas Jarrell; Auth (Verified) Notes: (Chest 2 Views Frontal and Lat) Reason For Exam: Hypoxia;Other: RESULT: Chest 2 Views Frontal and Lat Chest 2 Views Frontal and Lat INDICATION: Hypoxia; Clinical Question(s): Pneumonia / Pneumonia COMPARISON: 06/27/2012 FINDINGS: LINES AND TUBES: None. LUNGS AND PLEURA: Clear lungs. Normal pulmonary vascularity. No pleural effusion. No pneumothorax. HEART, MEDIASTINUM AND CHRISSY: Heart is normal in size. Normal mediastinal and hilar contour. BONES AND SOFT TISSUES: No acute abnormality. Status post ACDF. IMPRESSION: No evidence of acute abnormality. WSN: [id number] Ordering Physician: Cole Penaloza Dictated By: Evans Soni MD Dictated Date/Time: 06/22/21 10:58 a Reviewed By: Evans Soni MD Signed By: Evans Soni MD Signed Date/Time: 06/22/21 10:58 am Transcribed By: MARIA L Transcribed Date/Time: 06/22/21 10:58 am * Exam Date Time Procedure Performing Provider Status 06/22/21 12:39 AM XR Femur 2 Views Left Samira Estevez; Auth (Verified) Notes: (XR Femur 2 Views Left) Reason For Exam: Pain RESULT: Femur 2 Views Left Pelvis 1 or 2 Views, Femur 2 Views Left REASON: Pain; Clinical Question(s): Fracture COMPARISON: Right hip from 11/12/2016. FINDINGS: Mildly angulated basicervical fracture of the left femoral neck. Normal hips and sacroiliac joints. Degenerative changes of the visualized lower lumbar spine. Status post left total knee arthroplasty. Left hip soft tissue swelling. Surgical clips in the scrotum. IMPRESSION: Mildly angulated left femoral neck fracture. Chart review indicates that the treating clinician is aware. WSN: [id number] Ordering Physician: Dae Young Dictated By: Evans Soni MD Dictated Date/Time: 06/22/21 8:10 am Reviewed By: Evans Soni MD Signed By: Evans Soni MD Signed Date/Time: 06/22/21 8:10 am Transcribed By: MARIA L Transcribed Date/Time: 06/22/21 8:08 am * Exam Date Time Procedure Performing Provider Status 06/22/21 12:39 AM Pelvis 1 or 2 Views Samira Estevez; A uth (Verified) Notes: (Pelvis 1 or 2 Views) Reason For Exam: Pain RESULT: Pelvis 1 or 2 Views Pelvis 1 or 2 Views, Femur 2 Views Left REASON: Pain; Clinical Question(s): Fracture COMPARISON: Right hip from 11/12/2016. FINDINGS: Mildly angulated basicervical fracture of the left femoral neck. Normal hips and sacroiliac joints. Degenerative changes of the visualized lower lumbar spine. Status post left total knee arthroplasty. Left hip soft tissue swelling. Surgical clips in the scrotum. IMPRESSION: Mildly angulated left femoral neck fracture. Chart review indicates that the treating clinician is aware. WSN: [id number] Ordering Physician: Dae Young Dictated By: Evans Soni MD Dictated Date/Time: 06/22/21 8:10 am Reviewed By: Evans oSni MD Signed By: Evans Soni MD Signed Date/Time: 06/22/21 8:10 am Transcribed By: MARIA L Transcribed Date/Time: 06/22/21 8:08 am Vital Signs Most recent to oldest [Reference Range]: 1 2 3 Oxygen Saturation [94-100 %] 97 % (06/27/21 6:28 AM) 99 % (06/27/21 3:19 AM) 97 % (06/26/21 6:14 PM) Pulse Rate [55-90 bpm] 62 bpm (06/27/21 6:28 AM) 63 bpm (06/27/21 3:19 AM) 68 bpm (06/26/21 6:14 PM) Blood Pressure [90-138/55-84 mm Hg] 108/66mm Hg (06/27/21 6:28 AM) 113/74mm Hg (06/27/21 3:19 AM) 113/61mm Hg (06/26/21 6:14 PM) Respiratory Rate [16-30 br/min] 18 br/min (06/27/21 8:12 AM) 188 br/min *H* (06/27/21 7:12 AM) 18 br/min (06/27/21 6:28 AM) Temperature [96.8-100.4 DegF] 97.6 DegF (06/27/21 6:28 AM) 97.7 DegF (06/27/21 3:19 AM) 97.7 DegF (06/26/21 6:14 PM) Liters per Minute 2 L/min (06/22/21 4:58 PM) 2 L/min (06/22/21 1:19 PM) 2 L/min (06/22/21 7:48 AM) Mode of Delivery (Oxygen) Room air (06/27/21 6:28 AM) Room air (06/27/21 3:19 AM) Room air (06/26/21 6:14 PM) Blood pressure sites Arm, right (06/27/21 6:28 AM) Arm, right (06/27/21 3:19 AM) Arm, right (06/26/21 6:14 PM) Temperature Route Oral (06/27/21 6:28 AM) Oral (06/27/21 3:19 AM) Oral (06/26/21 6:14 PM) Social History Social History Type Response Smoking Status Former smoker, quit more than 30 days ago; Number of years: 38; Total pack years: 20; Started at age: 27; Stopped at age: 67; entered on: 10/01/19 Sex
--- OUTSIDE RECORDS SUMMARY | 2023-06-07 08:33 | XMS_ITS | Continuity of Care Document ---
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 fluzone high dose 7Location History: [facility] 8Result Comment: [07/25/2014] [facility] 9Result Comment: [08/15/2014] received at [employer] Medications acetaminophen 325 mg oral tablet 650 [...] 0 Refills, Maintenance, 06/26/21 10:57:00 EDT, Capsule, [facility], Partial fill upon patient request if the prescription is for a schedule II opioid drug., 175, cm, 05/18/21 14:06:00 ED... Start Date: 06/26/21 Status: Ordered docusate sodium 100 mg oral tablet = 100 mg, By Mouth, 2 times a day, # 60 tablet, 0 Refills, Maintenance, 06/26/21 10:57:00 EDT, Tablet, [facility], Partial fill upon patient request if the prescription is for a schedule II opioid drug., 175, cm, 05/18/21 14:06:00 EDT, H... Start Date: 06/26/21 Stop Date: 07/26/21 Status: Ordered Ecotrin 325 mg oral delayed release tablet 1 tablet = 325 mg, By Mouth, 2 times a day, # 60 tablet, 0 Refills, Maintenance, 06/26/21 10:56:00 EDT, EC Tablet, [facility], Partial fill upon patient request if [...]
--- OUTSIDE RECORDS SUMMARY | 2023-06-07 08:33 | XMS_ITS | Continuity of Care Document ---
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 Role Phone Kathy Levi MD Primary Care Physician [phone] [place] [facility] [place]21 [facility] [address] [place] [address]- Allergies, Adverse Reactions, Alerts Substance Reaction Severity Status NKA Active Immunizations Given and Recorded Vaccine Date Status Refusal Reason pneumococcal 23-valent vaccine 04/07/21 Given pneumococcal 23-valent vaccine 07/19/10 Given zoster vaccine, inactivated 03/30/21 Recorded SARS-CoV-2 (COVID-19) mRNA BNT-162b2 vac 01/19/21 Recorded SARS-CoV-2 (COVID-19) mRNA BNT-162b2 vac 12/29/20 Recorded influenza virus vaccine, inactivated 1 06/19/20 Re corded influenza virus vaccine, inactivated 06/22/17 Fabian rded [...] SEE FORM 2Result Comment: [08/15/2014] received at [facility] 3Result Comment: [08/31/2013] pt had at [employer] (employer) 4Admin Note: at work 5Admin Note: naseem richardofi pasteur 6Result Comment: rec. fluzone high dose 7Location History: [facility] 8Result Comment: [07/25/2014] [facility] 9Result Comment: [08/15/2014] received at [facility] Medications Multivitamin By Mouth, Daily, 0 Refills, Maintenance Start Date: 01/05/13 Status: Ordered Problem List Condition Effective Dates Status Health Status Inform ant Justice's esophagus(Confirmed) Active Cervical radiculopathy(Confirmed) 1 11/30/05 Active Diverticulosis(Confirmed) 2 Active Hemorrhoids(Confirmed) Active Herniation of intervertebral disc(Confirmed) 3, 4 10/18/08 Active Hypercholesterolemia(Confirmed) Active Hypertension(Confirmed) 02/23/07 Active Impaired fasting glucose(Confirmed) 10/01/15 Active Low back pain(Confirmed) Active OM - Onychomycosis(Confirmed) Active Osteoarthritis(Confirmed) 05/01/10 Active Adenomatous polyp(Confirmed) Active 1left sided 2moderate diverticulosis colonoscopy 08/13 3left lateral L4-[address] Rosenberg 4lumbar surgery Dr. Jorge garcia Social History Social History Type Response Smoking Status Former smoker, quit more than 30 days ago; Number of years: 38; Total pack years: 20; Started at age: 27; Stopped at age: 67; entered on: 10/01/19 Sex
--- OUTSIDE RECORDS SUMMARY | 2023-06-07 08:33 | XMS_ITS | Continuity of Care Document ---
Author Name Unknown Organization [facility] Address [address] [place] [address]- Care Team Providers Care Field Marketing Director Name Role Phone Kathy Levi MD Primary Care Physician Encounter 06/28/21 - 07/06/21 [facility] [address] [place] [address]- Discharge Disposition: GOALS MET Allergies, Adverse Reactions, Alerts Substance Reaction Severity Status NKA Active Immunizations Given and Recorded Vaccine Date Status Refusal Reason zoster vaccine, inactivated 06/30/21 Recorded zoster vaccine, [...] SEE FORM 2Result Comment: [08/15/2014] received at [facility] 3Result Comment: [08/31/2013] pt had at [employer] (employer) 4Admin Note: at work 5Admin Note: 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 fluzone high dose 7Location History: [facility] 8Result Comment: [07/25/2014] [facility] 9Result Comment: [08/15/2014] received at [facility] Medications acetaminophen 325 mg oral tablet 650 [...] 0 Refills, Maintenance, 06/26/21 10:57:00 EDT, Capsule, [facility], Partial fill upon patient request if the prescription is for a schedule II opioid drug., 175bobby, 05/18/21 14:06:00 ED... Start Date: 06/26/21 Status: Ordered docusate sodium 100 mg oral tablet = 100 mg, By Mouth, 2 times a day, # 60 tablet, 0 Refills, Maintenance, 06/26/21 10:57:00 EDT, Tablet, [facility], Partial fill upon patient request if the prescription is for a schedule II opioid drug., 175, cm, 05/18/21 14:06:00 EDT, H... Start Date: 06/26/21 Stop Date: 07/26/21 Status: Ordered Ecotrin 325 mg oral delayed release tablet 1 tablet = 325 mg, By Mouth, 2 times a day, # 60 tablet, 0 Refills, Maintenance, 06/26/21 10:56:00 EDT, EC Tablet, [facility], Partial fill upon patient request if the prescription is for a schedule II opioid drug., 175, cm, 05/18/21 14:... Start Date: 06/26/21 Stop Date: 07/26/21 Status: Ordered Protonix 40 mg oral delayed [...] smoker, quit more than 30 days ago; Started at age: 27; Number of years: 38; Total pack years: 20; Stopped at age: 67; entered on: 10/01/19 Sex
--- OUTSIDE RECORDS SUMMARY | 2023-06-07 08:33 | XMS_ITS | Continuity of Care Document ---
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 [place] Date(s): 03/12/21 - 03/12/[address] [address]- Discharge Disposition: A-D/C Home Attending Physician: Gunner De La Garza MD Admitting Physician: Gunner De La Garza MD Referring Physician: Gunner De La Garza MD Allergies, Adverse Reactions, Alerts Substance Reaction Severity Status NKA Active Immunizations Given and Recorded Vaccine Date Status Refusal Reason influenza virus vaccine, inactivated 1 06/19/20 Re [...] 9 07/10/14 Recorded FluLaval (oldterm) 07/20/12 Given pneumococcal 23-valent vaccine 07/19/10 Given Tet/Diphth/Acel, Pertussis (oldterm) 04/08/09 Give n 1Result Comment: FLUAD HIGH DOSE SEE FORM 2Result Comment: [08/15/2014] received at [facility] 3Result Comment: [08/31/2013] pt had at [employer] (employer) 4Admin Note: at work 5Admin Note: naseem siddiqui 6Result Comment: rec. fluzone high dose 7Location History: [facility] 8Result Comment: [07/25/2014] [facility] 9Result Comment: [08/15/2014] received at [employer] [facility] Medications Multivitamin By Mouth, Daily, 0 Refills, Maintenance Start Date: 01/05/13 Status: Ordered omeprazole 20 mg oral enteric coated capsule 1 capsule = 20 mg, By Mouth, Daily, # 30 capsule, 2 Refills, Maintenance, 11/25/20 9:40:00 EST, EC Capsule, [id number], Partial fill upon patient request if the prescription is for a scheduleII opioid drug., 175, cm, 11/27/19 9:05:00 EST, Height Start Date: 11/25/20 Status: Ordered PEG-3350 with Electrolytes (Eqv-GoLYTELY) oral powder for reconstitution See Instructions, 1 glass every 15-30 minutes unti finished, # 4,000 mL, 0 Refills, Maintenance, 11/28/20 8:40:00 EST, [id number], procedure in march, to place rx on hold, 1 glass every 15-30 minutes unti finished, 175, cm, 11/27/19 9:05:00... Start Date: 11/28/20 Status: Ordered Plenvu oral powder for reconstitution See Instructions, complete on day before procedure, # 1,000 mL, 0 Refills, Maintenance, 11/25/20 9:40:00 EST, [id number], Partial fill upon patient request if the prescription is for a schedule II opioid drug., complete on day before procedure... Start Date: 11/25/20 Status: Ordered Problem List Condition Effective Dates Status Health Status Inform ant Cervical radiculopathy(Confirmed) 1 11/30/05 Active Diverticulosis(Confirmed) 2 Active Hemorrhoids(Confirmed) Active Herniation of intervertebral disc(Confirmed) 3, 4 10/18/08 Active Hypercholesterolemia(Confirmed) Active Hypertension(Confirmed) 02/23/07 Active Impaired fasting glucose(Confirmed) 10/01/15 Active Low back pain(Confirmed) Active OM - Onychomycosis(Confirmed) Active Osteoarthritis(Confirmed) 05/01/10 Active Adenomatous polyp(Confirmed) Active 1left sided 2moderate diverticulosis colonoscopy 08/13 3left lateral L4-[address] Rosenberg 4luar surgery Dr. Jorge garcia Procedures Procedure Date Related Diagnosis Body Site Status Colonoscopy with polypectomy 03/12/21 Completed Esophagogastroduodenoscopy and biopsy 03/12/21 Completed Vital Signs Most recent to oldest [Reference Range]: 1 2 3 Height 175 cm (03/12/21 7:31 AM) Oxygen Saturation [94-100 %] 98 % (03/12/21 9:36 AM) 99 % (03/12/21 9:25 AM) 98 % (03/12/21 7:31 AM) Pulse Rate [55-90 bpm] 80 bpm (03/12/21 7:31 AM) Blood Pressure [90-138/55-84 mm Hg] 111/73mm Hg (03/12/21 9:36 AM) 112/76mm Hg (03/12/21 9:25 AM) 166/68mm Hg *H* (03/12/21 7:31 AM) Respiratory Rate [16-30 br/min] 18 br/min (03/12/21 9:36 AM) 18 br/min (03/12/21 9:25 AM) 18 br/min (03/12/21 7:31 AM) Temperature [96.8-100.4 DegF] 97.2 DegF (03/12/21 7:31 AM) Mode of Delivery (Oxygen) Room air (03/12/21 9:36 AM) Room air (03/12/21 9:25 AM) Room air (03/12/21 7:31 AM) Blood pressure sites Arm, left (03/12/21 9:36 AM) Arm, left (03/12/21 9:25 AM) Arm, left (03/12/21 7:31 AM) Temperature Route Temporal (03/12/21 7:31 AM) Dry Weight 73 kg (03/12/21 7:31 AM) Social History Social History Type Response Smoking Status Former smoker, quit more than 30 days ago; Started at age: 27; Number of years: 38; Total pack years: 20; Stopped at age: 67; entered on: 10/01/19 Sex
--- OUTSIDE RECORDS SUMMARY | 2023-06-07 08:33 | XMS_ITS | Continuity of Care Document ---
Author Name Unknown Organization [facility] Address [address] [place] [address] [address] [place] [address]- Care Team Providers Care Project Engineer Name Role Phone Kathy Levi MD Primary Care Physician [phone] Encounter [facility] Date(s): 11/05/19 - 11/15/19 [facility] [address] [place] [address]- [facility] Attending Physician: AdmHunter cortés Admitting Physician: AdmtrHunter Referring Physician: Admtr, Ar8 Allergies, Adverse Reactions, Alerts Substance Reaction Severity Status NKA Active Immunizations Given and Recorded Vaccine Date Status Refusal Reason tetanus-diphtheria toxoids (Td) 1 09/18/18 Recorde d tetanus-diphtheria toxoids (Td) 01/18/99 Given pneumococcal 13-valent vaccine 09/27/17 Given influenza virus vaccine, inactivated 06/22/17 Fabian rded [...] virus vaccine, inactivated 5 08/11/08 Gi liliana Fluvirin (oldterm) 6 07/19/14 Recorded Zoster Vaccine Live 7 07/10/14 Recorded FluLaval (oldterm) 07/20/12 Given pneumococcal 23-valent vaccine 07/19/10 Given Tet/Diphth/Acel, Pertussis (oldterm) 04/08/09 Give n 1Location History: [facility] 2Result Comment: [08/15/2014] received at [facility] 3Result Comment: [08/31/2013] pt had at [facility] (employer) 4Admin Note: at work 5Admin Note: naseem diaz pasteur 6Result Comment: [07/25/2014] [employer] 7Result Comment: [08/15/2014] received at [facility] Medications Anusol-HC 25 mg suppository 1 supp = 25 mg, Rectally, 2 times a day, # 28 supp, 0 Refills, Maintenance, 07/23/19 8:40:16 EDT, Suppository Start Date: 07/23/19 Status: Ordered Multivitamin By Mouth, Daily, 0 Refills, Maintenance [...]
--- OUTSIDE RECORDS SUMMARY | 2023-06-07 08:33 | XMS_ITS | Continuity of Care Document ---
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 fluzone high dose 7Location History: [facility] 8Result Comment: [07/25/2014] [facility] 9Result Comment: [08/15/2014] received at [facility] Medications acetaminophen 325 mg oral tablet 650 [...] 0 Refills, Maintenance, 06/26/21 10:57:00 EDT, Capsule, [facility], Partial fill upon patient request if the prescription is for a schedule II opioid drug., 175, bobby, 05/18/21 14:06:00 ED... Start Date: 06/26/21 Status: Ordered docusate sodium 100 mg oral tablet = 100 mg, By Mouth, 2 times a day, # 60 tablet, 0 Refills, Maintenance, 06/26/21 10:57:00 EDT, Tablet, [facility], Partial fill upon patient request if the prescription is for a schedule II opioid drug., 175, cm, 05/18/21 14:06:00 EDT, H... Start Date: 06/26/21 Stop Date: 07/26/21 Status: Ordered Ecotrin 325 mg oral delayed release tablet 1 tablet = 325 mg, By Mouth, 2 times a day, # 60 tablet, 0 Refills, Maintenance, 06/26/21 10:56:00 EDT, EC Tablet, [facility], Partial fill upon patient request if the prescription is for a schedule II opioid drug., 175, cm, 05/18/21 14:... Start Date: 06/26/21 Stop Date: 07/26/21 Status: Ordered hydrochlorothiazide-lisinopril 12.5 mg-20 mg oral tablet See Instructions, TAKE 1 TABLET DAILY, # 90 tablet, 0 Refills, [facility], 0, TAKE 1 TABLET DAILY, 175, cm, 05/18/21 14:06:00 EDT, Height, 73, kg, 03/12/21 7:31:00 EDT, Dry Weight Start Date: 05/18/22 Status: Ordered omeprazole 20 mg oral enteric coated capsule 1 capsule = 20 mg, By Mouth, Daily, # 90 capsule, 3 Refills, Maintenance, 11/02/21 9:22:00 EST, EC Capsule, [facility], Partial fill upon patient request if the prescription is fora schedule II opioid drug., 175, cm, 05/18/21 14:06... Start Date: 11/02/21 Status: Ordered Problem List Condition Confirmation Course Effective Dates Status Health Status Informant Anxiety Confirmed Active Justice's esophagus Confirmed Active Cervical radiculopathy 1 Confirmed 11/30/05 Active Diverticulosis 2 Confirmed Active Hemorrhoids Confirmed Active Herniation of intervertebral disc 3, 4 Confirmed 10/18/08 Active Hypercholesterolemia Confirmed Active Hypertension Confirmed 02/23/07 Active Impaired fasting glucose Confirmed 10/01/15 Active Low back pain Confirmed Active OM - Onychomycosis Confirmed Active Osteoarthritis Confirmed 05/01/10 Active Adenomatous polyp Confirmed Active 1left sided 2moderate diverticulosis colonoscopy 08/13 3left lateral L4-[address] Rosenberg 4luar surgery Dr. Jorge garcia Social History Social History Type Response Smoking Status Former smoker, quit more than 30 days ago; Number of years: 38; Total pack years: 20; Started at age: 27; Stopped at age: 67; entered on: 10/01/19 Sex Patient Care team information Care Team Personnel Name: Laura Leon RN Position: DEREK MAY RN Member Role: Primary Care Nurse Name: Vikki Leiva RN Position: Meredith RN Member Role: Primary Care Nurse Name: Cornel Dorsey NP Position: Reference Physician Member Role: PCP Address: Address: [address] [place] [address]- Name: Miko Lora RN Position: S RN Member Role: Primary Care Nurse Name: Aura Villa RN Position: S RN Member Role: Primary Care Nurse Name: Alondra Ramey RN Position: S RN Member Role: Primary Care Nurse Name: Margarette Philippe RN Position: S RN Member Role: Primary Care Nurse Name: Vaihsali Saeed RN Position: S RN Member Role: Primary Care Nurse Care Team Related Persons Name: SONJA SONG Address: home [address] [place] [id number]
--- OUTSIDE RECORDS SUMMARY | 2023-06-07 08:33 | XMS_ITS | Continuity of Care Document ---
Author Name Unknown Organization [facility] Address [address] [place] [address]- Care Team Providers Care Director It Project Name Role Phone Kathy Levi MD Primary Care Physician [phone] [facility] Date[facility]s): 10/08[facility]19 - 10/18/19 [facility] [address] [place] [address]- [facility] Attending Physician: Admmilana, Hunter Admitting Physician: AdmtrHunter Referring Physician: Admtr, Ar8 [...] Pertussis (oldterm) 04/08/09 Give n 1Location History: [facility] 2Result Comment: [08/15/2014] received at [facility] 3Result Comment: [08/31/2013] pt had at [employer] (employer) 4Admin Note: at work 5Admin Note: naseem richardofi pasteur 6Result Comment: [07/25/2014] SAL 7Result Comment: [08/15/2014] received at [facility] [employer] Medications Anusol-HC 25 mg suppository 1 supp [...]
--- OUTSIDE RECORDS SUMMARY | 2023-06-07 08:33 | XMS_ITS | Continuity of Care Document ---
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 Name Role Phone Kathy Levi MD Primary Care Physician [facility]counter [facility] Date(s): 09/17/19 - 12/05/19 [facility] [address] [place] [address]- [facility] Attending Physician: Fay Rodriguez MD Allergies, Adverse Reactions, Alerts Substance Reaction Severity Status NKA Active Immunizations Given and Recorded Vaccine Date Status Refusal Reason Influenza Virus Vaccine (oldterm) 1 08/10/19 Recor ded tetanus-diphtheria toxoids (Td) 2 09/18/18 Recorde d tetanus-diphtheria toxoids (Td) 01/18/99 Given pneumococcal 13-valent vaccine 09/27/17 Given influenza virus vaccine, inactivated 06/22/17 Fabian rded influenza virus vaccine, inactivated 09/24/16 Give n influenza virus vaccine, inactivated 06/10/15 Fabian rded influenza virus vaccine, inactivated 3 07/10/14 Re corded influenza virus vaccine, inactivated 07/10/14 Fabian rded influenza virus vaccine, inactivated 4 07/24/13 Re corded influenza virus vaccine, inactivated 5 07/24/10 Gi liliana influenza virus vaccine, inactivated 10/17/09 Give n influenza virus vaccine, inactivated 6 08/11/08 Gi liliana Fluvirin (oldterm) 7 07/19/14 Recorded Zoster Vaccine Live 8 07/10/14 Recorded FluLaval (oldterm) 07/20/12 Given pneumococcal 23-valent vaccine 07/19/10 Given Tet/Diphth/Acel, Pertussis (oldterm) 04/08/09 Give n 1Result Comment: rec. fluzone high dose 2Location History: [facility] 3Result Comment: [08/15/2014] received at [employer] 4Result Comment: [08/31/2013] pt had at [employer] (employer) 5Admin Note: at work 6Admin Note: naseem siddiqui 7Result Comment: [07/25/2014] [employer] 8Result Comment: [08/15/2014] received at [employer] Medications Anusol-HC 25 mg suppository 1 supp [...]
--- OUTSIDE RECORDS SUMMARY | 2023-06-07 08:33 | XMS_ITS | Continuity of Care Document ---
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 fluzone high dose 7Location History: [facility] 8Result Comment: [07/25/2014] [facility] 9Result Comment: [08/15/2014] received at [facility] Medications Multivitamin By Mouth, Daily, 0 Refills, [...] Active Hypertension(Confirmed) 02/23/07 Active Impaired fasting glucose(Confirmed) 12/23/15 Active Low back pain(Confirmed) Active OM - Onychomycosis(Confirmed) Active Osteoarthritis(Confirmed) 05/01/10 Active Adenomatous polyp(Confirmed) Active 1left sided 2moderate diverticulosis colonoscopy 08/13 3left lateral L4-[address] Rosenberg 4luar surgery Dr. Patel summer Social History Social History Type Response Smoking Status Former smoker, quit more than 30 days ago; Started at age: 27; Number of years: 38; Total pack years: 20; Stopped at age: 67; entered on: 10/01/19 Sex
--- OUTSIDE RECORDS SUMMARY | 2023-06-07 08:33 | XMS_ITS | Continuity of Care Document ---
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 fluzone high dose 7Location History: [facility] 8Result Comment: [07/25/2014] [facility] 9Result Comment: [08/15/2014] received at [facility] Medications Multivitamin By Mouth, Daily, 0 Refills, [...]
--- OUTSIDE RECORDS SUMMARY | 2023-06-07 08:34 | XMS_ITS | Patient Health Record ---
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 Name Role Phone Kathy Levi MD Primary Care Provider Nani Grewal Unavailable [phone] ALLERGIES No Known Allergies REASON FOR REFERRAL No Information MEDICATIONS Medication SIG (Take, Route, Frequency, Duration) Notes Start Date End Date Status Equate - as directed Orally A ctive Lisinopril 20 MG 1 tablet Orally Once a day for 30 day(s) Active amLODIPine Besylate 5 MG 1 tablet Orally Once a day for 30 day(s) Active IMMUNIZATIONS Vaccine Route Administration Date Status Comme nts COVID-19 Pfizer BioNTech Vaccine Unknown 12/09/2020 Administered Second Dose: 12/30/2020 SOCIAL HISTORY Tobacco Use: Social History Observation Description Date Details (start date - stop date) Former Smoker NA - NA Sex Assigned At : Social History Observation Description Sex Assigned At Unknown Tobacco Use/Smoking Question Answer Notes Are you a: former smoker Additional Findings: Tobacco Non-User Current no n-smoker Alcohol Screen Question Answer Notes Did you have a drink contain ing alcohol in the past year? Yes How often did you have a dri nk containing alcohol in the past year? Monthly or less (1 point) Points 1 Interpretation Negative Tobacco use other than smoking: Question Answer Notes Are you an other tobacco user? No PLAN OF TREATMENT No Information Insurance Providers Payer Name Payer Address Payer Phone Subscriber Number Group Number Insured Name Patient Relationship to Insured Coverage Start Date Coverage End Date [facility] [address] [place] [address] [phone] [id number] Vernon Reilly Self - patient is the insured MEDICAL (GENERAL) HISTORY Medical History History ICD Code Broken bones High blood pressure Measles Mumps Chicken pox Surgical History Surgery Date(Month/Year) back surgery 2003/2007/2014 knee replacement 2010 elbow sx 2017 Cervical 2006 Shoulder 2014
--- NOTE | 2023-06-07 08:38 | AM.OFFWIN_ITS ---
Intake Vital Signs 06/07/23 08:39 Height 5 ft 9 in Weight 169 lb BMI 25.0 BP 110/70 Blood Pressure Location Lt brachial Position Sitting Pulse 66 Pulse Source Pulse Oximeter Temp 97.4 F Temp Source Temporal Artery Scan Pulse Oximetry (%) 98 Oxygen Delivery Method Room Air Intake Visit Reasons: EST/right hip pain(lobby) Intake Note: Patient here for right hip pain that has been present for a few weeks. He also concerned about his eyes, he states they have been leaking starts in the morning and goes on throughout the day. Patient Tobacco Use Status: Former Tobacco user Quit Date: 06/22/2017 Allergies No Known Allergies [No Known Allergies*] Allergy (Verified 06/07/23 08:40) Do you need a note to return to daycare/school/sports/work: No HPI EST/right hip pain(lobby) HPI Details Patient presents today with 2 concerns. His right hip has been aching for the last month or so. He typically walks about 5 miles per day, and has had to cut down on this due to right hip discomfort. Denies any trauma or injuries to the area. History of left hip replacement with Dr. Ortiz at [facility]. He reports pain is primarily on the lateral aspect of his right hip. Denies any clicking, popping, or radiation of pain down leg. He also reports watering of both eyes in the mornings. He denies any green or yellow discharge. He denies any eye pain or vision changes. [facility] Surgical History History of cervical spinal surgery History of elbow surgery History of hip surgery History of knee surgery History of shoulder surgery Previous back surgery Family History Paternal Grandfather Substance use disorder Social History Housing: House Alcohol intake: current Alcohol intake frequency: 0-2 drinks per day Alcohol type: beer and hard liquor Patient Tobacco Use Status: Former Tobacco user Quit Date: 06/22/2017 Tobacco use type: Cigarette e-Cigarette/Vaping Use: Never Used Second Hand Smoke Exposure: No service: No Current occupational status: retired Cognitive needs: No Hearing needs: No Vision needs: No Review of Systems Const All systems reviewed & are unremarkable except as noted in HPI and below Physical Exam Vital Signs: Last Vital Signs Temp 97.4 F 06/07/23 08:39 Pulse 66 06/07/23 08:39 BP 110/70 06/07/23 08:39 Pulse Ox 98 06/07/23 08:39 Oxygen Delivery Method Room Air 06/07/23 08:39 BMI result Body Mass Index 25.0 Const General: cooperative, healthy appearing, comfortable and no acute distress Nutritional Appearance: average body habitus Eyes General: appearance normal, both eyes and all related structures Alignment and Position: alignment normal Eyelids: Yes eyelids normal Conjunctivae: conjunctivae normal Sclerae: sclerae normal Pupils: Equal, round and reactive pupils present EOM: EOMs intact bilaterally Direct Ophthalmoscopy: normal light reflex and no photophobia Resp Effort & Inspection: normal respiratory effort and able to speak in complete sentences Skin General skin exam: no rashes or lesions noted Neuro Cranial nerves: Yes Equal, round and reactive pupils present Extrem Right lower extremity: normal capillary refill and hip/thigh (no TTP, no joint swelling, mild pain lateral R hip with EROT/IROT) Details: normal to inspection Assessment & Plan Assessment & Plan (1) Arthralgia of right hip: Code(s): M25.551 - Pain in right hip Plan: Patient likely has a component of osteoarthritis and right hip. History of left hip arthroplasty at [facility]. I will obtain x-ray today, and follow-up with patient once results are available. PCP is Cornel Dorsey if f/u is needed. Advised patient rest joint for a few days, and take NSAIDs as needed to see if this improves symptoms. (2) Watery eyes: Code(s): H04.203 - Unspecified epiphora, bilateral Plan: No infection identified an on eyes. This could possibly be a component of allergy use. I advised patient to purchase some [id number] or allergy eyedrops to use once daily to see if this improves symptoms. He agrees to plan. Orders: Orders XR hip RT min 2V Today M25.551 - Pain in right hip Coding Level of Care Code Est Pt Level 3 (76296) Diagnoses Arthralgia of right hip M25.551 Watery eyes H04.203
[2023-06-07 08:39] VITALS: BP 110/70; PULSE 66; TEMP 36.3; O2SAT 98; BMI 25.0
== END 2023-06-07 09:13 | disposition home or self-care (01) ==
PROVIDERS: PCP Nurse Practitioner Family; Visit Provider Nurse Practitioner Family
DX: M25.551 Pain in right hip (principal); H04.203 Unspecified epiphora, bilateral
CPT/HCPCS: 99213

== ENCOUNTER 2023-06-07 09:05 | Outpatient (REF) | payer MEDICARE, SELFPAY ==
--- NOTE | ~2023-06-07 | XR_ITS ---
EXAMINATION: XR HIP, RIGHT CLINICAL INFORMATION: Pain in right hip COMPARISON: None available. TECHNIQUE: Two views of the right hip. FINDINGS: No acute visible fracture or dislocation. Degenerative arthropathy of the right femoral acetabular joints with joint space narrowing, sclerosis, and enthesopathy along the right greater trochanter. Degenerative changes of the lumbosacral spine. Joint spaces and alignment are otherwise maintained. Surgical clips in the region of the scrotum. Soft tissues are unremarkable. XR/XR hip RT min 2V IMPRESSION: 1. No acute visible fracture or dislocation. 2. Degenerative arthropathy of the right femoral acetabular joint with joint space narrowing, sclerosis, and enthesopathy along the right greater trochanter.
== END 2023-06-07 09:06 | disposition home or self-care (01) ==
LOC: HO.HMGCX 09:05
PROVIDERS: PCP Nurse Practitioner Family; Visit Provider Nurse Practitioner Family
DX: M25.551 Pain in right hip (principal)
CPT/HCPCS: 73502

== ENCOUNTER 2023-09-19 08:06 | Outpatient (REF) | payer MEDICARE, SELFPAY ==
[2023-09-19 12:26] LABS: Iron 116 mcg/dL (45-160); Percent Iron Saturation 37 % (15-50); Total Iron Binding Capacity 312 mcg/dL (228-428); Unsaturated Iron Binding 196 ug/dL
[2023-09-19 12:46] LABS: Folate 12.1 ng/mL (> or = 4.0); Vitamin B12 520 pg/mL (200-900)
== END 2023-09-19 08:07 | disposition home or self-care (01) ==
LOC: HO.HMGCLDS 08:06
PROVIDERS: Internal Medicine; PCP Nurse Practitioner Family; Visit Provider Nurse Practitioner Family
DX: D64.9 Anemia, unspecified (principal)
CPT/HCPCS: 36415; 82607; 82746; 83540

== ENCOUNTER 2023-10-07 07:34 | Outpatient (REF) | payer MEDICARE, SELFPAY ==
[2023-10-07 11:38] LABS: MANUAL DIFF FLAG NO
[2023-10-07 11:41] LABS: Basophils Percent Auto 0.7 % (0-2); Eosinophils Absolute Auto 0.6 X10*3/uL (0.0-0.4); Eosinophils Percent Auto 10.2 % (0-4); Hematocrit 42.2 % (42.0-52.0); Hemoglobin 14.4 g/dl (14.0-18.0); Imm Gran Abs Auto 0.03 X10*3/uL (0.00-0.03); Imm Gran Pct Auto 0.6 % (0.0-0.4); Lymphocytes Absolute Auto 1.4 X10*3/uL (1.2-4.9); Lymphocytes Percent Auto 25.7 % (20-40); Mean Corpuscular HGB Conc 34.1 g/dl (31.0-36.0); Mean Corpuscular Hemoglobin 32.7 pg (27.0-33.0); Mean Corpuscular Volume 95.7 fL (80.0-98.0); Mean Platelet Volume 9.7 fL (9.4-12.4); Monocytes Absolute Auto 0.5 X10*3/uL (0.1-1.2); Neutrophils Absolute Auto 2.8 x10*3/uL (2.0-8.3); Neutrophils Percent Auto 52.8 % (45-73); Platelet Count 258 X10*3/uL (160-400); Red Blood Count 4.41 X10*6/uL (4.60-5.80); Red Cell Distribution Width 11.9 % (11.0-16.0); White Blood Count 5.4 X10*3/uL (4.8-10.8)
[2023-10-07 12:06] LABS: Appearance Urine Clear; Color Urine Yellow; Glucose Urine UA Negative (Negative); Leukocyte Esterase Urine Negative (Negative); Nitrite Urine Negative (Negative); Specific Gravity - Urine 1.015 (1.005-1.025); Urine Blood Negative (Negative); Urine Ketones Trace mg/dL (Negative); Urine Protein Negative (Neg-Trace)
[2023-10-07 12:20] LABS: Alanine Aminotransferase 37 U/L (0-40); Albumin Level 4.7 g/dL (3.5-5.0); Alkaline Phosphatase 85 U/L (39-117); Anion Gap 15 (12-20); Aspartate Amino Transferase 41 U/L (5-37); Bilirubin Total 0.6 mg/dL (0.0-1.0); Blood Urea Nitrogen 12 mg/dL (9-16); Calcium 9.4 mg/dL (8.4-10.2); Carbon Dioxide 23 mmol/L (22-29); Chloride 104 mmol/L (96-108); Cholesterol 191 mg/dL (<200); Estimated Glomerular Filt Rate > 60; Glucose Fasting 104 mg/dL (60-99); HDL Cholesterol 96 mg/dL (>40); LDL Cholesterol Calculated 74 mg/dL (<100); Potassium 3.7 mmol/L (3.3-5.1); Sodium 138 mmol/L (135-145); TSH reflex Free T4 3.12 uIU/mL (0.32-4.0); Total Protein 8.1 g/dL (6.5-8.0); Triglycerides 109 mg/dL (<150)
== END 2023-10-07 07:35 | disposition home or self-care (01) ==
LOC: HO.HMGCLDS 07:34
PROVIDERS: PCP Nurse Practitioner Family; Visit Provider Nurse Practitioner Family
DX: D64.9 Anemia, unspecified (principal)
CPT/HCPCS: 36415; 80053; 80061; 81003; 84443; 85025

== ENCOUNTER 2023-10-11 08:26 | Outpatient (AMB) | payer MEDICARE, SELFPAY ==
--- NOTE | 2023-10-11 08:30 | MHC.PC.OV ---
Vital Signs 10/11/23 08:37 Height 5 ft 9 in Weight 167 lb BMI 24.7 BP 136/72 Blood Pressure Location Lt brachial Position Sitting Pulse 72 Pulse Source Pulse Oximeter Pulse Oximetry (%) 96 Oxygen Delivery Method Room Air Intake Visit Reasons: 6 month f/u Intake Note: Pt is here today for his 6 mo. f/u Allergies No Known Allergies [No Known Allergies*] Allergy (Verified 10/11/23 08:38) Medication List - Last Reconciled 10/11/23 by ANAT Graves amlodipine 10 mg PO DAILY 90 days atorvastatin 20 mg PO BEDTIME 90 days lisinopril-hydrochlorothiazide 20-12.5 mg 1 tab PO DAILY 90 days multivitamin (Daily Multi-Vitamin tablet) 1 tab PO DAILY omeprazole 20 mg PO BID 90 days Tobacco use date assessed: 10/11/23 Fall risk assessment: No Falls in past year Last assessed Fall Risk: 10/11/23 Dental Screening Dental Screen Date: 10/11/23 Did you have a dental visit in the last 12 months?: No Was dental information given to patient?: Patient has dentist HPI 6 month f/u HPI Details HTN: stable BPs (brought in from home). Denies any CP, SOB, CHACON, dizziness, or blurred vision. BP stable in office today as well. Ongoing watery eyes, pt will get in with an eye MD, though noted eosinophils are elevated. WIll have him take cetirizine at night (20mg). cerumen bilat: after ear lavage TMS easily seen [facility] Surgical History History of hip surgery History of elbow surgery History of shoulder surgery History of knee surgery History of cervical spinal surgery Previous back surgery Family History Paternal Grandfather Substance use disorder Social History Housing: House Alcohol intake: current Alcohol intake frequency: 0-2 drinks per day Alcohol type: beer and hard liquor Patient Tobacco Use Status: Former Tobacco user Quit Date: 06/22/2017 Tobacco use type: Cigarette e-Cigarette/Vaping Use: Never Used Second Hand Smoke Exposure: No service: No Current occupational status: retired Cognitive needs: No Hearing needs: No Vision needs: Yes Questionnaire PHQ-9 Over the last 2 weeks, how often have you been bothered by any of the following problems? 1. Little interest or pleasure in doing things: several days 2. Feeling down, depressed, or hopeless: not at all 3. Trouble falling or staying asleep, or sleeping too much: several days 4. Feeling tired or having little energy: not at all 5. Poor appetite or overeating: not at all 6. Feeling bad about yourself - or that you are a failure or have let yourself or your family down: not at all 7. Trouble concentrating on things, such as reading the newspaper or watching television: several days 8. Moving or speaking so slowly that other people could have noticed. Or the opposite - being so fidgety or restless that you have been moving around a lot more than usual: not at all 9. Thoughts that you would be better off or of hurting yourself in some way: not at all Total score: 3 Depression Screening Interpretation: Negative Depression Screening Done: Yes 81274 - PHQ-9 Billing: Yes Source: Developed by Drs. Dustin Galarza, June Bellamy, William Lopez and colleagues, with an educational janice from [employer]. Thrive Questionnaire Date Thrive assessed: 10/11/23 I am a: Patient What is your living situation today?: I have a steady place to live Within the past 12 months, did the food you bought not last and you didn't have the money to get more?: Never true Within the past 12 months, did you worry whether your food would run out before you got money to buy more?: Never true Do you have trouble paying for medicines?: No Do you have trouble getting transportation to medical appointments?: No Do you have trouble paying your heating and electricity bill?: No Do you have trouble taking care of your child, family member or friend?: No Do you have trouble with day-to-day activities such as bathing, preparing meals, shopping, managing finances, etc.?: No Are you currently unemployed and looking for a job?: No Are you interested in more education?: No Currently or been in a relationship where the following occur: no concerns reported AUDIT C Alcohol Use Questionnaire (AUDIT-C) 1. How often do you have a drink containing alcohol?: 4 or more times a week 2. How many drinks containing alcohol do you have on a typical day when you are drinking?: 3 or 4 3. How often do you have six or more drinks on one occasion?: Never Total Score: 5 Score Reviewed/Action Taken: Yes GERDA-7 AMB Questionnaire GERDA-7 Date GERDA - 7 assessed: 10/11/23 Feeling nervous, anxious, or on edge: 1 = Several days Not being able to stop or control worryin = Not at all Worrying too much about different things: 0 = Not at all Trouble relaxin = Not at all Being so restless that it is hard to sit still: 0 = Not at all Becoming easily annoyed or irritable: 0 = Not at all Feeling afraid as if something awful might happen: 0 = Not at all Total GERDA-7 score (0-4 normal; 5-9 mild; 10-14 moderate; 15-21 severe): 1 Source: Developed by Drs. Dustin Galarza, June Bellamy, William Lopez and colleagues, with an educational janice from [employer]. GERDA-7 Assessment Billing GERDA-7 Assessment Tool: GERDA-7 Assessment 29449 Physical exam (Primary Care) Vital Signs: Last Vital Signs Pulse 7 L 10/11/23 08:37 BP 136/72 10/11/23 08:37 Pulse Ox 96 10/11/23 08:37 Oxygen Delivery Method Room Air 10/11/23 08:37 BMI result Body Mass Index 24.7 Tobacco/Smoking Status: Tobacco use Status Tobacco use date assessed 10/11/23 10/11/23 08:41 Patient Tobacco Use Status Former Tobacco user 10/11/23 08:30 Tobacco use type Cigarette 10/11/23 08:30 e-Cigarette/Vaping Use Never Used 10/11/23 08:30 PHQ-9: PHQ-9 Score PHQ-9: Total score 3 10/11/23 08:46 Depression Screening Interpretation: Negative Thrive Assessment: Date of Thrive Assessment Date Thrive assessed 10/11/23 10/11/23 08:46 Currently or been in a relationship where the following occur: no concerns reported HENMT Other: cerumen noted bilat, after ear lavage, TMs easily seen Resp Effort & Inspection: normal respiratory effort Auscultation: clear to auscultation bilaterally Cardio Rate: regular rate Rhythm: regular rhythm Heart sounds: S1 normal heart sound present and S2 normal heart sound present Extrem Right lower extremity: no edema Left lower extremity: no edema Psych Appearance: grossly normal Speech and movement: Normal speech and movement present Affect: normal affect Attitude: cooperative Thought content: Normal thought content present Insight: Good insight present (Psych) Judgement: Good judgement present (Psych) Office Procedures Cerumen Removal From which ear canal was the cerumen removed: bilateral Removal: cerumen loop/spoon Notes: no complications 08432-Ets Irrigation/Lavage Assessment and Plan Assessment & Plan (1) HTN (hypertension): Code(s): I10 - Essential (primary) hypertension Plan: stable (2) Cerumen impaction: Code(s): H61.20 - Impacted cerumen, unspecified ear (3) Bilateral epiphora: Code(s): H04.203 - Unspecified epiphora, bilateral Plan: trying cetirizine 20mg at night Coding Level of Care Code Est Pt Level 3 (12776) Diagnoses HTN (hypertension) I10 Cerumen impaction H61.20 Bilateral epiphora H04.203 CPT Codes Office Procedure - CPT: 19623-Jif Irrigation/Lavage ([id number]) Additional Codes GERDA-7 Assessment Billing - GERDA-7 Assessment Tool: GERDA-7 Assessment 78231 ([id number])
[2023-10-11 08:37] VITALS: BP 136/72; PULSE 72; O2SAT 96; BMI 24.7
== END 2023-10-11 09:38 | disposition home or self-care (01) ==
PROVIDERS: PCP Nurse Practitioner Family; Visit Provider Nurse Practitioner Family
DX: I10 Essential (primary) hypertension (principal); H61.23 Impacted cerumen, bilateral; H04.203 Unspecified epiphora, bilateral
CPT/HCPCS: 69210; 99213

== ENCOUNTER 2024-01-19 08:06 | Outpatient (REF) | payer MEDICARE, SELFPAY ==
[2024-01-19 10:11] LABS: MANUAL DIFF FLAG NO
[2024-01-19 10:24] LABS: Appearance Urine Clear; Color Urine Yellow; Glucose Urine UA Negative (Negative); Leukocyte Esterase Urine Negative (Negative); Nitrite Urine Negative (Negative); PH 5.5 (5.0-9.0); Urine Blood Negative (Negative); Urine Ketones Negative (Negative); Urine Protein Negative (Neg-Trace)
[2024-01-19 10:25] LABS: Basophils Percent Auto 0.6 % (0-2); Eosinophils Absolute Auto 0.7 X10*3/uL (0.0-0.4); Eosinophils Percent Auto 12.6 % (0-4); Hematocrit 42.2 % (42.0-52.0); Hemoglobin 14.5 g/dl (14.0-18.0); Imm Gran Abs Auto 0.02 X10*3/uL (0.00-0.03); Imm Gran Pct Auto 0.4 % (0.0-0.4); Lymphocytes Absolute Auto 1.6 X10*3/uL (1.2-4.9); Lymphocytes Percent Auto 30.4 % (20-40); Mean Corpuscular HGB Conc 34.4 g/dl (31.0-36.0); Mean Corpuscular Hemoglobin 32.2 pg (27.0-33.0); Mean Corpuscular Volume 93.8 fL (80.0-98.0); Mean Platelet Volume 9.8 fL (9.4-12.4); Monocytes Absolute Auto 0.6 X10*3/uL (0.1-1.2); Monocytes Percent Auto 10.9 % (2-11); Neutrophils Absolute Auto 2.4 x10*3/uL (2.0-8.3); Neutrophils Percent Auto 45.1 % (45-73); Platelet Count 233 X10*3/uL (160-400); White Blood Count 5.4 X10*3/uL (4.8-10.8)
[2024-01-19 11:17] LABS: Prostate Specific Antigen Scr 0.47 ng/mL (<0.05-4.0)
[2024-01-19 11:19] LABS: Alanine Aminotransferase 32 U/L (0-40); Albumin Level 4.5 g/dL (3.5-5.0); Alkaline Phosphatase 99 U/L (39-117); Anion Gap 12 (12-20); Aspartate Amino Transferase 32 U/L (5-37); Bilirubin Total 0.6 mg/dL (0.0-1.0); Blood Urea Nitrogen 8 mg/dL (9-16); Calcium 9.2 mg/dL (8.4-10.2); Carbon Dioxide 27 mmol/L (22-29); Chloride 103 mmol/L (96-108); Cholesterol 173 mg/dL (<200); Estimated Glomerular Filt Rate > 60; Glucose Fasting 105 mg/dL (60-99); HDL Cholesterol 83 mg/dL (>40); LDL Cholesterol Calculated 77 mg/dL (<100); Potassium 4.4 mmol/L (3.3-5.1); Sodium 138 mmol/L (135-145); TSH reflex Free T4 1.72 uIU/mL (0.32-4.0); Total Protein 7.8 g/dL (6.5-8.0); Triglycerides 65 mg/dL (<150)
== END 2024-01-19 08:07 | disposition home or self-care (01) ==
LOC: HO.HMGCLDS 08:06
PROVIDERS: PCP Nurse Practitioner Family; Visit Provider Nurse Practitioner Family
DX: Z12.5 Encounter for screening for malignant neoplasm of prostate (principal); E78.5 Hyperlipidemia, unspecified
CPT/HCPCS: 36415; 80053; 80061; 81003; 84153; 84443; 85025

== ENCOUNTER 2024-02-27 10:42 | Outpatient (AMB) | payer MEDICARE, SELFPAY ==
--- OUTSIDE RECORDS SUMMARY | 2024-02-27 10:43 | XMS_ITS | Continuity of Care Document ---
Author Organization [facility] Address [address] [place] [address]- Care Team Providers Care Children Teacher Name Role Phone Willian MCCAIN, Cornel Tello Primary Care Physician [place] [facility] [place] 06/29/23 - 07/29/23 [facility] [address] [place] [id number]- Attending Physician: Hunter Anderson Admitting Physician: Hunter Anderson Referring Physician: Hunter Anderson Allergies, Adverse Reactions, Alerts No Known Allergies [...] influenza virus vaccine, inactivated 5 08/11/08 Gi liilana zoster vaccine, inactivated 06/30/21 Recorded zoster vaccine, [...] SEE FORM 2Result Comment: [08/15/2014] received at [employer] 3Result Comment: [08/31/2013] pt had at [employer] (employer) 4Admin Note: at work 5Admin Note: naseem richardofi pasteur 6Result Comment: rec. fluzone high dose 7Location History: [facility] 8Result Comment: [07/25/2014] SAL 9Result Comment: [08/15/2014] received at [employer] Medications acetaminophen 325 mg oral tablet 650 [...] 0 Refills, Maintenance, 06/26/21 10:57:00 EDT, Capsule, [facility], Partial fill upon patient request if the prescription is for a schedule II opioid drug., 175, bobby, 05/18/21 14:06:00 ED... Start Date: 06/26/21 Status: Ordered docusate sodium 100 mg oral tablet = 100 mg, By Mouth, 2 times a day, # 60 tablet, 0 Refills, Maintenance, 06/26/21 10:57:00 EDT, Tablet, [facility], Partial fill upon patient request if the prescription is for a schedule II opioid drug., 175, cm, 05/18/21 14:06:00 EDT, H... Start Date: 06/26/21 Stop Date: 07/26/21 Status: Ordered Ecotrin 325 mg oral delayed release tablet 1 tablet = 325 mg, By Mouth, 2 times a day, # 60 tablet, 0 Refills, Maintenance, 06/26/21 10:56:00 EDT, EC Tablet, [facility], Partial fill upon patient request [...] Team Personnel Name: Laura Leon RN Position: [facility] SN RN Member Role: Primary Care Nurse Name: Vikki Leiva RN Position: S RN Member Role: Primary Care Nurse Name: Cornel Dorsey NP Position: Reference Physician Member Role: PCP Address: Address: [address] [place] [address]- Name: Miko Lora RN Position: S RN Member Role: Primary Care Nurse Name: Aura Villa RN Position: S RN Member Role: Primary Care Nurse Name: Alondra Ramey RN Position: S RN Member Role: Primary Care Nurse Name: Margarette Philippe RN Position: S RN Member Role: Primary Care Nurse Name: Vaishali Saeed RN Position: [facility] RN Member Role: Primary Care Nurse Care Team Related Persons Name: SONJA SONG Address: home [address] [place] [id number]
--- OUTSIDE RECORDS SUMMARY | 2024-02-27 10:44 | XMS_ITS | Patient Health Record ---
Author Organization [facility] Address [address] [place] [address] Care Team Providers Care Manager Immunology Name Role Phone Kathy Levi MD Primary Care Provider Nani Grewal Unavailable [phone] ALLERGIES No Known Allergies REASON FOR REFERRAL [...] Insured Coverage Start Date Coverage End Date [facility] [address] [place] [address] [id number] [employer], [place] Self - patient is the insured MEDICAL (GENERAL) HISTORY Medical History History ICD Code Broken bones High blood pressure Measles Mumps Chicken pox Surgical History Surgery Date(Month/Year) back surgery 2003/2007/2014 knee replacement 2010 elbow sx 2017 Cervical 2006 Shoulder 2014
[2024-02-27 10:45] VITALS: BP 120/68; PULSE 76; TEMP 36.7; O2SAT 95; BMI 25.4
--- NOTE | 2024-02-27 10:45 | AM.OFFWIN_ITS ---
Intake Vital Signs 02/27/24 10:45 Height 5 ft 9 in Weight 172 lb BMI 25.4 BP 120/68 Blood Pressure Location Lt brachial Position Sitting Pulse 76 Pulse Source Pulse Oximeter Temp 98.0 F Temp Source Temporal Artery Scan Pulse Oximetry (%) 95 Oxygen Delivery Method Room Air Intake Visit Reasons: EP lft shoulder pain strained lifting weights Intake Note: pt is here today for lft shoulder lifting weights started 2 weeks ago Patient Tobacco Use Status: Former Tobacco user Quit Date: 06/22/2017 Allergies No Known Allergies [No Known Allergies*] Allergy (Verified 02/27/24 10:47) Do you need a note to return to daycare/school/sports/work: No HPI HPI Comments History of Present Illness Details Patient presents to the walk-in today for sick visit Complaining of left shoulder pain for 2 weeks Believes he injured it while lifting weights Pain worse with overhead reach and cross-body reach Denies numbness, tingling or weakness of left upper extremity PFSH Surgical History History of hip surgery History of elbow surgery History of shoulder surgery History of knee surgery History of cervical spinal surgery Previous back surgery Family History Paternal Grandfather Substance use disorder Social History Housing: House Alcohol intake: current Alcohol intake frequency: 0-2 drinks per day Alcohol type: beer and hard liquor Patient Tobacco Use Status: Former Tobacco user Quit Date: 06/22/2017 Tobacco use type: Cigarette e-Cigarette/Vaping Use: Never Used Second Hand Smoke Exposure: No service: No Current occupational status: retired Cognitive needs: No Hearing needs: No Vision needs: Yes Review of Systems Const All systems reviewed & are unremarkable except as noted in HPI and below Physical Exam Vital Signs: Last Vital Signs Temp 98.0 F 02/27/24 10:45 Pulse 76 02/27/24 10:45 BP 120/68 02/27/24 10:45 Pulse Ox 95 02/27/24 10:45 Oxygen Delivery Method Room Air 02/27/24 10:45 BMI result Body Mass Index 25.4 General: awake, alert, oriented. Answers questions appropriately. Fully engaged in examination. Skin: warm, dry, intact HEENT: Normocephalic. Hearing intact. Cardiac: External chest normal in appearance. Respiratory: No cough, audible wheezing or stridor. Abdomen: without gross distension. MS: No obvious swelling or deformities. Left upper extremity strength 5/5 Tenderness over left AC and GH joint Pain with overhead reach and cross-body reach. Neurological: Oriented to person, place, time and situation. Thought process intact. Psychiatric: Appropriate mood and affect. Good judgment and insight. Assessment & Plan Assessment & Plan (1) Painful arc syndrome of left shoulder: Code(s): M75.102 - Unspecified rotator cuff tear or rupture of left shoulder, not spec ified as traumatic Plan Referral placed for Orthopedics, patient requested [facility] as he has an established relationship with them and they have performed surgery in the past. Celecoxib 50 mg p.o. b.i.d., patient advised on cautions for use. Take with food. Do not take with any other nonsteroidal anti-inflammatory medications Cyclobenzaprine 5 mg p.o. t.i.d. p.r.n. patient advised on cautions for use, may cause drowsiness, do not drive while taking this medication. Do not take with alcohol or other OPERATIONS SUPERVISOR depressants. All questions and concerns were answered, patient agrees with the plan. Follow up with orthopedics or return here for any new or worsening symptoms. Orders: Referrals Orthopedics Referral M75.102 - Unspecified rotator cuff tear or rupture of left shoulder, not specified as traumatic Medications: New celecoxib 50 mg PO BID 30 caps 0RF cyclobenzaprine May cause drowsiness, no driving while taking this medication. Do not take with alcohol or other OPERATIONS SUPERVISOR suppressants 5 mg PO TID PRN 20 tabs 0RF muscle spasm Coding Level of Care Code Est Pt Level 3 (19366) Diagnoses Painful arc syndrome of left shoulder M75.102
== END 2024-02-27 11:20 | disposition home or self-care (01) ==
PROVIDERS: PCP Nurse Practitioner Family; Visit Provider Registered Nurse Emergency
DX: M75.102 Unspecified rotator cuff tear or rupture of left shoulder, not specified as traumatic (principal)
CPT/HCPCS: 99213

== ENCOUNTER 2024-05-10 08:48 | Outpatient (AMB) | payer MEDICARE, SELFPAY ==
--- NOTE | 2024-05-10 08:55 | A.OFFPC_ITS ---
Vital Signs 05/10/24 08:57 Height 5 ft 9 in Weight 168 lb BMI 24.8 BP 130/82 Blood Pressure Location Lt brachial Position Sitting Pulse 69 Pulse Source Pulse Oximeter Pulse Oximetry (%) 96 Oxygen Delivery Method Room Air Intake Visit Reasons: Annual PE Intake Note: Patient here for physical exam. Colon: scheduled for next week Allergies No Known Allergies [No Known Allergies*] Allergy (Verified 05/10/24 08:58) Tobacco use date assessed: 10/11/23 Fall risk assessment: No Falls in past year Last assessed Fall Risk: 05/10/24 Dental Screening Dental Screen Date: 10/11/23 HPI Annual PE HPI Details Pt is here for a PE. Will order labs. Colon screen is scheduled. PSA is up to date. Denies dribbling with urination and frequent nocturia, does report weak stream. [facility] Surgical History History of hip surgery History of elbow surgery History of shoulder surgery History of knee surgery History of cervical spinal surgery Previous back surgery Family History Paternal Grandfather Substance use disorder Social History Housing: House Alcohol intake: current Alcohol intake frequency: 0-2 drinks per day Alcohol type: beer and hard liquor Patient Tobacco Use Status: Former Tobacco user Tobacco use type: Cigarette e-Cigarette/Vaping Use: Never Used Second Hand Smoke Exposure: No service: No Current occupational status: retired Cognitive needs: No Hearing needs: No Vision needs: Yes Questionnaire PHQ-9 Over the last 2 weeks, how often have you been bothered by any of the following problems? 1. Little interest or pleasure in doing things: not at all 2. Feeling down, depressed, or hopeless: not at all 3. Trouble falling or staying asleep, or sleeping too much: not at all 4. Feeling tired or having little energy: not at all 5. Poor appetite or overeating: not at all 6. Feeling bad about yourself - or that you are a failure or have let yourself or your family down: not at all 7. Trouble concentrating on things, such as reading the newspaper or watching television: not at all 8. Moving or speaking so slowly that other people could have noticed. Or the opposite - being so fidgety or restless that you have been moving around a lot more than usual: not at all 9. Thoughts that you would be better off or of hurting yourself in some way: not at all Total score: 0 Depression Screening Interpretation: Negative Depression Screening Done: Yes 72354 - PHQ-9 Billing: Yes Source: Developed by Drs. Dustin Galarza, June Bellamy, William Lopez and colleagues, with an educational janice from [employer]. Thrive Questionnaire Date Thrive assessed: 05/10/24 I am a: Patient What is your living situation today?: I have a steady place to live Within the past 12 months, did the food you bought not last and you didn't have the money to get more?: Never true Within the past 12 months, did you worry whether your food would run out before you got money to buy more?: Never true Do you have trouble paying for medicines?: No Do you have trouble getting transportation to medical appointments?: No Do you have trouble paying your heating and electricity bill?: No Do you have trouble taking care of your child, family member or friend?: No Do you have trouble with day-to-day activities such as bathing, preparing meals, shopping, managing finances, etc.?: No Are you currently unemployed and looking for a job?: I choose not to answer this question Are you interested in more education?: No Please select the resources that you would like help with: Housing/Senior Living Currently or been in a relationship where the following occur: No concerns reported THRIVE Score: 0 AUDIT C Alcohol Use Questionnaire (AUDIT-C) 1. How often do you have a drink containing alcohol?: 4 or more times a week 2. How many drinks containing alcohol do you have on a typical day when you are drinking?: 3 or 4 3. How often do you have six or more drinks on one occasion?: Never Total Score: 5 Score Reviewed/Action Taken: No GERDA-7 AMB Questionnaire GERDA-7 Date GERDA - 7 assessed: 05/10/24 Feeling nervous, anxious, or on edge: 0 = Not at all Not being able to stop or control worryin = Not at all Worrying too much about different things: 0 = Not at all Trouble relaxin = Not at all Being so restless that it is hard to sit still: 0 = Not at all Becoming easily annoyed or irritable: 0 = Not at all Feeling afraid as if something awful might happen: 0 = Not at all Total GERDA-7 score (0-4 normal; 5-9 mild; 10-14 moderate; 15-21 severe): 0 Source: Developed by Drs. Dustin Galarza, June Bellamy, William Lopez and colleagues, with an educational janice from [employer]. GERDA-7 Assessment Billing GERDA-7 Assessment Tool: GERDA-7 Assessment 37110 Review of Systems Const Denies chills and Denies fever(s) Eyes Denies blurry vision ENT Denies vertigo, Denies dizziness and Denies sore throat Card Denies chest pain at rest, Denies chest pain with activity, Denies diaphoresis, Denies dyspnea and Denies dyspnea on exertion Resp Denies cough, Denies dyspnea, Denies dyspnea on exertion and Denies wheezing GI Denies abdominal pain, Denies melena, Denies hematochezia, Denies constipation, Denies diarrhea and Denies loose stools Denies hematuria Musc Denies numbness and Denies tingling Skin/Breast Denies lesions Neuro Denies vertigo, Denies dizziness, Denies numbness and Denies tingling Psych Denies anxiety, Denies depression, Denies homicidal ideation, Denies suicidal ideation and Denies other (substance abuse) Aller/Immun Denies wheezing Physical exam (Primary Care) Vital Signs: Last Vital Signs Pulse 69 05/10/24 08:57 BP 130/82 05/10/24 08:57 Pulse Ox 96 05/10/24 08:57 Oxygen Delivery Method Room Air 05/10/24 08:57 BMI result Body Mass Index 24.8 Tobacco/Smoking Status: Tobacco use Status Tobacco use date assessed 10/11/23 05/10/24 08:56 Patient Tobacco Use Status Former Tobacco user 05/10/24 08:56 Tobacco use type Cigarette 05/10/24 08:56 e-Cigarette/Vaping Use Never Used 05/10/24 08:56 PHQ-9: PHQ-9 Score PHQ-9: Total score 0 05/10/24 09:03 Depression Screening Interpretation: Negative Thrive Assessment: Date of Thrive Assessment Date Thrive assessed 05/10/24 05/10/24 09:03 Currently or been in a relationship where the following occur: No concerns reported Const General: cooperative Nutritional Appearance: well nourished Orientation/consciousness: patient oriented x3 HENMT Head: Yes normal to inspection, Yes normocephalic and Yes atraumatic Ears: TM's normal bilaterally Eyes General: appearance normal, both eyes and all related structures Alignment and Position: alignment normal and position normal Neck Neck: Yes normal visual inspection and Yes no lymphadenopathy Thyroid: Thyroid normal Resp Effort & Inspection: normal respiratory effort Auscultation: clear to auscultation bilaterally Cardio Rate: regular rate Rhythm: regular rhythm Heart sounds: S1 normal heart sound present, S2 normal heart sound present and no murmurs GI Palpation (GI): Soft to palpation and nontender Auscultation: normal bowel sounds Male General Exam: Yes normal external exam Penis: normal penis Scrotum: scrotum normal, testes descended bilaterally and no inguinal hernias Testes: no testicular mass Skin Rashes: no rashes Neuro General: patient oriented x3, moves all extremities, no focal motor deficits and deep tendon reflexes 2+ bilaterally Romberg Test: Negative Psych Appearance: grossly normal Mental Status: mental status grossly normal Speech and movement: Normal speech and movement present Affect: normal affect Attitude: cooperative Thought process: Normal thought process present Thought content: Normal thought content present Insight: Good insight present (Psych) Judgement: Good judgement present (Psych) Assessment and Plan Assessment & Plan (1) Physical exam: Code(s): Z. - Encounter for general adult medical examination without abnormal findings Plan The patient agreed to the use of a medical pathologist for this encounter. Scribed for ANAT Riley by Aniya Hoang medical pathologist, on 05/10/2024 at 09:10 EST. Orders: Orders Complete Blood Count Auto Diff Today Z00.01 - Encounter for general adult medical examination with abnormal findings Lipid Panel Today Z00.01 - Encounter for general adult medical examination with abnormal findings Comprehensive [place]. Panel Fast Today Z00.01 - Encounter for general adult medical examination with abnormal findings TSH reflex Free T4 Today Z00.01 - Encounter for general adult medical examination with abnormal findings UA CC w/rflx Micro + Cult Today Z00.01 - Encounter for general adult medical examination with abnormal findings Coding Level of Care Code Est Pt Prev Care >65y(68939) Diagnoses Physical exam Z00.00 Additional Codes GERDA-7 Assessment Billing - GERDA-7 Assessment Tool: GERDA-7 Assessment 70732 ([id number])
[2024-05-10 08:57] VITALS: BP 130/82; PULSE 69; O2SAT 96; BMI 24.8
== END 2024-05-10 09:25 | disposition home or self-care (01) ==
PROVIDERS: PCP Nurse Practitioner Family; Visit Provider Nurse Practitioner Family
DX: Z00.00 Encounter for general adult medical examination without abnormal findings (principal)
CPT/HCPCS: 99397

== ENCOUNTER 2024-06-19 10:44 | Outpatient (AMB) | payer MEDICARE, SELFPAY ==
[2024-06-19 11:13] VITALS: BP 122/68; PULSE 90; TEMP 36.8; O2SAT 97; BMI 24.7
--- NOTE | 2024-06-19 11:13 | MHC.OFFWIV ---
Intake Vital Signs 06/19/24 11:13 Height 5 ft 9 in Weight 167 lb BMI 24.7 BP 122/68 Blood Pressure Location Rt brachial Position Sitting Pulse 90 Pulse Source Pulse Oximeter Temp 98.2 F Temp Source Oral Pulse Oximetry (%) 97 Oxygen Delivery Method Room Air Intake Visit Reasons: EP-left leg pain Intake Note: pt c/o LT leg and hip pain. Ongoing, intermittent Patient Tobacco Use Status: Former Tobacco user Allergies No Known Allergies [No Known Allergies*] Allergy (Verified 06/19/24 11:22) Do you need a note to return to daycare/school/sports/work: No HPI HPI Comments History of Present Illness Details 73 y/o male patient who presents to the walk in clinic with c/o left thigh pain on/off for few weeks now. S/p left hip replacement [address] Ortiz. Denies any recent injury or trauma. He is planning a trip 07/16 to [place] and would like to have this problem resolved soon. He is asking for referral to Orthopedics. [facility] Medical History (Updated 05/22/24 @ 12:26 by SAMANTHA Graves-TOSHIA) Barretts esophagus Surgical History History of hip surgery History of elbow surgery History of shoulder surgery History of knee surgery History of cervical spinal surgery Previous back surgery Family History Paternal Grandfather Substance use disorder Social History Housing: House Alcohol intake: current Alcohol intake frequency: 0-2 drinks per day Alcohol type: beer and hard liquor Patient Tobacco Use Status: Former Tobacco user Tobacco use type: Cigarette e-Cigarette/Vaping Use: Never Used Second Hand Smoke Exposure: No service: No Current occupational status: retired Cognitive needs: No Hearing needs: No Vision needs: Yes Physical Exam Vital Signs: Last Vital Signs Temp 98.2 F 06/19/24 11:13 Pulse 90 06/19/24 11:13 BP 122/68 06/19/24 11:13 Pulse Ox 97 06/19/24 11:13 Oxygen Delivery Method Room Air 06/19/24 11:13 BMI result Body Mass Index 24.7 Const Orientation/consciousness: patient oriented x3 Skin General skin exam: no rashes or lesions noted Neuro General: patient oriented x3, gait normal and moves all extremities Extrem Left lower extremity: normal to inspection, full ROM and hip/thigh Details: normal to inspection and normal ROM; no tenderness, no swelling, no lacerations and no ecchymosis Psych Speech and movement: Normal speech and movement present Assessment & Plan Assessment & Plan (1) Left thigh pain: Code(s): M79.652 - Pain in left thigh Plan: Messaged PCP for referral placement. IceHot rest joint. Coding Level of Care Code Est Pt Level 3 (91341) Diagnoses Left thigh pain M79.652 Time Spent (min) 15
== END 2024-06-19 12:08 | disposition home or self-care (01) ==
PROVIDERS: PCP Nurse Practitioner Family; Visit Provider Nurse Practitioner Family
DX: M79.652 Pain in left thigh (principal)
CPT/HCPCS: 99213

== ENCOUNTER 2024-07-06 08:34 | Outpatient (AMB) | payer MEDICARE, SELFPAY ==
--- NOTE | 2024-07-06 08:43 | MHC.OFFWIV ---
Intake Vital Signs 07/06/24 08:45 Height 5 ft 9 in Weight 168 lb BMI 24.8 BP 130/80 Blood Pressure Location Rt brachial Position Sitting Pulse 90 Pulse Source Pulse Oximeter Temp 98.1 F Temp Source Oral Pulse Oximetry (%) 96 Oxygen Delivery Method Room Air Intake Visit Reasons: EP ? flu symptoms Intake Note: Patient here for dry cough, congestion, yellow mucus and body aches. Patient Tobacco Use Status: Former Tobacco user Allergies No Known Allergies [No Known Allergies*] Allergy (Verified 07/06/24 08:46) Do you need a note to return to daycare/school/sports/work: No HPI HPI Comments History of Present Illness Details This is a 74-year-old male with a past medical history of hypertension, hyperlipidemia gastroesophageal reflux disease presenting for evaluation of sinus congestion, dry cough and fatigue that he has had for the past 1 day. Patient states that his had similar symptoms last weekend and was tested for respiratory illnesses that were negative. Patient denies having any fevers, chills, otalgia, sore throat, chest pain or shortness of breath. [facility] Medical History Barretts esophagus Surgical History History of hip surgery History of elbow surgery History of shoulder surgery History of knee surgery History of cervical spinal surgery Previous back surgery Family History Paternal Grandfather Substance use disorder Social History Housing: House Alcohol intake: current Alcohol intake frequency: 0-2 drinks per day Alcohol type: beer and hard liquor Patient Tobacco Use Status: Former Tobacco user Tobacco use type: Cigarette e-Cigarette/Vaping Use: Never Used Second Hand Smoke Exposure: No service: No Current occupational status: retired Cognitive needs: No Hearing needs: No Vision needs: Yes Review of Systems Const All systems reviewed & are unremarkable except as noted in HPI and below Denies chills, Reports fatigue and Denies fever(s) Eyes Reports no additional complaints ENT Denies otalgia, Reports nasal congestion, Denies sinus pain and Denies sinus pressure Card Reports no additional complaints and Denies dyspnea Resp Reports cough and Denies dyspnea GI Reports no additional complaints Reports no additional complaints Musc Reports no additional complaints, Denies myalgias and Denies muscle weakness Skin/Breast Reports system reviewed and no additional complaints, except as documented Neuro Reports no additional complaints Endo Reports no additional complaints and Reports fatigue Dinesh/Lymph Reports no additional complaints Aller/Immun Reports no additional complaints Physical Exam Vital Signs: Last Vital Signs Temp 98.1 F 07/06/24 08:45 Pulse 90 07/06/24 08:45 BP 130/80 07/06/24 08:45 Pulse Ox 96 07/06/24 08:45 Oxygen Delivery Method Room Air 07/06/24 08:45 BMI result Body Mass Index 24.8 Const General: cooperative, healthy appearing, comfortable, no acute distress, well developed, alert, awake and Physically active Nutritional Appearance: average body habitus Orientation/consciousness: patient oriented x3 Limitations: no limitations HEENT Head: Yes normal to inspection and Yes normocephalic Ears: hearing grossly normal bilaterally, external ears normal, TM's normal bilaterally and EAC's normal General nose exam: Normal external nose present Face and sinus: Yes normal facial exam Mouth: moist mucous membranes Throat: Yes postnasal drainage and Yes other (There is no erythema, edema or exudates of the posterior oropharynx) Eyes General: appearance normal, both eyes and all related structures EOM: EOMs intact bilaterally Neck Lymphatic: no lymphadenopathy noted Resp Effort & Inspection: normal respiratory effort, able to speak in complete sentences, no audible wheezes, no cough and no respiratory distress Auscultation: clear to auscultation bilaterally Cardio Rate: regular rate Rhythm: regular rhythm Skin General skin exam: no rashes or lesions noted Neuro General: patient oriented x3 Psych Appearance: grossly normal Mental Status: mental status grossly normal Insight: Good insight present (Psych) Judgement: Good judgement present (Psych) Assessment & Plan Assessment & Plan (1) Acute upper respiratory infection: Comment: Respiratory panel is pending. Patient is afebrile, is not hypoxic and is in no acute distress. Code(s): J06.9 - Acute upper respiratory infection, unspecified Plan: Increase fluids, Tylenol or ibuprofen for any discomfort. Patient is to follow up his primary care provider in 7-10 days if his symptoms do not improve. Orders: Orders SARS-CoV2/FLU/RSV Today J06.9 - Acute upper respiratory infection, unspecified Coding Level of Care Code Est Pt Level 3 (62557) Diagnoses Acute upper respiratory infection J06.9 Time Spent (min) 20
[2024-07-06 08:45] VITALS: BP 130/80; PULSE 90; TEMP 36.7; O2SAT 96; BMI 24.8
== END 2024-07-06 09:15 | disposition home or self-care (01) ==
PROVIDERS: PCP Nurse Practitioner Family; Visit Provider Physician Assistant
DX: J06.9 Acute upper respiratory infection, unspecified (principal)

== ENCOUNTER 2024-07-06 08:34 | Outpatient (REF) | payer MEDICARE, SELFPAY ==
[2024-07-06 11:10] LABS: Influenza A PCR NEGATIVE (Negative); Influenza B PCR NEGATIVE (Negative); Resp Syncy Virus RNA Qual PCR NEGATIVE (Negative); SARS COV2 PCR INHOUSE NEGATIVE (Negative)
== END 2024-07-06 08:35 | disposition home or self-care (01) ==
LOC: HO.LAB 08:34
PROVIDERS: PCP Nurse Practitioner Family; Visit Provider Physician Assistant
DX: J06.9 Acute upper respiratory infection, unspecified (principal)
CPT/HCPCS: 0241U; 99212

== ENCOUNTER 2024-09-12 07:40 | Outpatient (REF) | payer MEDICARE, SELFPAY ==
[2024-09-12 10:24] LABS: MANUAL DIFF FLAG NO
[2024-09-12 10:31] LABS: Basophils Percent Auto 0.8 % (0-2); Eosinophils Absolute Auto 0.5 X10*3/uL (0.0-0.4); Eosinophils Percent Auto 9.2 % (0-4); Hematocrit 41.8 % (42.0-52.0); Hemoglobin 14.4 g/dl (14.0-18.0); Imm Gran Abs Auto 0.02 X10*3/uL (0.00-0.03); Imm Gran Pct Auto 0.4 % (0.0-0.4); Lymphocytes Absolute Auto 1.5 X10*3/uL (1.2-4.9); Lymphocytes Percent Auto 27.9 % (20-40); Mean Corpuscular HGB Conc 34.4 g/dl (31.0-36.0); Mean Corpuscular Hemoglobin 32.5 pg (27.0-33.0); Mean Corpuscular Volume 94.4 fL (80.0-98.0); Mean Platelet Volume 9.2 fL (9.4-12.4); Monocytes Absolute Auto 0.6 X10*3/uL (0.1-1.2); Neutrophils Absolute Auto 2.6 x10*3/uL (2.0-8.3); Neutrophils Percent Auto 50.7 % (45-73); Platelet Count 248 X10*3/uL (160-400); Red Blood Count 4.43 X10*6/uL (4.60-5.80); Red Cell Distribution Width 11.6 % (11.0-16.0); White Blood Count 5.2 X10*3/uL (4.8-10.8)
[2024-09-12 10:52] LABS: Alanine Aminotransferase 30 U/L (0-40); Albumin Level 4.5 g/dL (3.5-5.0); Alkaline Phosphatase 95 U/L (39-117); Anion Gap 14 (12-20); Aspartate Amino Transferase 37 U/L (5-37); Bilirubin Total 0.5 mg/dL (0.0-1.0); Blood Urea Nitrogen 11 mg/dL (9-16); Calcium 9.4 mg/dL (8.4-10.2); Carbon Dioxide 25 mmol/L (22-29); Chloride 103 mmol/L (96-108); Cholesterol 172 mg/dL (<200); Estimated Glomerular Filt Rate > 60; Glucose Fasting 107 mg/dL (60-99); HDL Cholesterol 77 mg/dL (>40); LDL Cholesterol Calculated 78 mg/dL (<100); Sodium 138 mmol/L (135-145); Total Protein 7.7 g/dL (6.5-8.0); Triglycerides 86 mg/dL (<150)
[2024-09-12 11:00] LABS: Appearance Urine Clear; Color Urine Yellow; Glucose Urine UA Negative (Negative); Leukocyte Esterase Urine Negative (Negative); Nitrite Urine Negative (Negative); PH 5.5 (5.0-9.0); Specific Gravity - Urine 1.015 (1.005-1.025); Urine Blood Negative (Negative); Urine Ketones Negative (Negative); Urine Protein Negative (Neg-Trace)
[2024-09-12 11:08] LABS: TSH reflex Free T4 3.25 uIU/mL (0.32-4.0)
--- OUTSIDE RECORDS SUMMARY | 2024-09-18 16:19 | XMS_ITS | Patient Health Record ---
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 Role Phone Kathy Levi MD Primary Care Provider Nani Grewal Unavailable [phone] Allergies No Known Allergies Reason For Referral No Information Medications Medication SIG (Take, Route, Frequency, Duration) Notes Start Date End Date Status Equate - as directed Orally A ctive Lisinopril 20 MG 1 tablet Orally Once a day for 30 day(s) Active amLODIPine Besylate 5 MG 1 tablet Orally Once a day for 30 day(s) Active Immunizations Vaccine Route Administration Date Status Comme nts COVID-19 Pfizer BioNTech Vaccine Unknown 12/09/2020 Administered Second Dose: 12/30/2020 Social History Tobacco Use: Social History Observation Description Date Details (start date - stop date) Former Smoker NA - NA Tobacco Use/Smoking Question Answer Notes Are you [...] Are you an other tobacco user? No Plan Of Treatment No Information Insurance Providers Payer Name Payer Address Payer Phone Subscriber Number Group Number Insured Name Patient Relationship to Insured Coverage Start Date Coverage End Date [facility] [address] [place] [address] [id number] Vernon Reilly Self - patient is the insured Medical (General) History Medical History History ICD Code Broken bones High blood pressure Measles Mumps Chicken pox Surgical History Surgery Date(Month/Year) back surgery 2003/2007/2014 knee replacement 2010 elbow sx 2017 Cervical 2006 Shoulder 2014
== END 2024-09-12 07:41 | disposition home or self-care (01) ==
LOC: HO.HMGCLDS 07:40
PROVIDERS: PCP Nurse Practitioner Family; Visit Provider Nurse Practitioner Family
DX: Z00.01 Encounter for general adult medical examination with abnormal findings (principal)
CPT/HCPCS: 36415; 80053; 80061; 81003; 84443; 85025

== ENCOUNTER 2024-09-28 11:16 | Outpatient (AMB) | payer MEDICARE, SELFPAY ==
--- OUTSIDE RECORDS SUMMARY | 2024-09-28 11:22 | XMS_ITS | Patient Health Record ---
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
--- NOTE | 2024-09-28 11:38 | AM.OFFWIN_ITS ---
Intake Vital Signs 09/28/24 11:51 Weight 173 lb BP 132/80 Blood Pressure Location Lt brachial Position Sitting Pulse 76 Pulse Source Pulse Oximeter Pulse Oximetry (%) 94 Oxygen Delivery Method Room Air Intake Visit Reasons: EP Trigger finger, lt ring finger Intake Note: Patient here for trigger finger on left hand Patient Tobacco Use Status: Former Tobacco user Allergies No Known Allergies [No Known Allergies*] Allergy (Verified 09/28/24 11:51) Do you need a note to return to daycare/school/sports/work: No HPI HPI Comments History of Present Illness Details History of Present Illness The patient is a 74-year-old male presenting with trigger finger of the left ring finger. The condition has been ongoing, previously manifesting as a locking sensation when the patient touched his palm, followed by a pop release. However, the patient now reports an inability to bend the finger at all, significantly impacting his ability to use his left hand. The patient has not tried any interventions such as splints or other treatments for this condition. He has been managing by tolerating the symptoms. The patient decided to seek care following a recommendation that the condition is easily treatable, prompting this visit. Physical Exam General: Cooperative, healthy appearing, comfortable, no acute distress and well developed Orientation: Patient oriented x3 Limitations: Limited ability to bend the left hand ring finger Head: Normal to inspection Ears: Hearing grossly normal bilaterally Nose: Normal Nxternal nose present Face and sinus: ormal facial exam Eyes: Appearance normal, both eyes and all related structures Neck: Normal visual inspection and Yes full ROM Respiratory: Normal respiratory effort and able to speak in complete sentences. Skin: No rashes or lesions noted Neuro: Patient oriented x3 Extremities: as below [facility] Medical History Barretts esophagus Surgical History History of hip surgery History of elbow surgery History of shoulder surgery History of knee surgery History of cervical spinal surgery Previous back surgery Family History Paternal Grandfather Substance use disorder Social History Housing: House Alcohol intake: current Alcohol intake frequency: 0-2 drinks per day Alcohol type: beer and hard liquor Patient Tobacco Use Status: Former Tobacco user Tobacco use type: Cigarette e-Cigarette/Vaping Use: Never Used Second Hand Smoke Exposure: No service: No Current occupational status: retired Cognitive needs: No Hearing needs: No Vision needs: Yes Review of Systems Const All systems reviewed & are unremarkable except as noted in HPI and below Physical Exam Vital Signs: Last Vital Signs Pulse 76 09/28/24 11:51 BP 132/80 09/28/24 11:51 Pulse Ox 94 09/28/24 11:51 Oxygen Delivery Method Room Air 09/28/24 11:51 Extrem Left upper extremity: hand Details: normal to inspection, normal capillary refill, vascular exam Details: normal capillary refill and abnormal ROM of finger Details: unable to flex Location: of the 4th digit; no tenderness, no unusual warmth, no swelling, swelling, no abrasions, no lacerations and no ecchymosis Assessment & Plan Assessment & Plan (1) Trigger finger of left hand: Code(s): M65.30 - Trigger finger, unspecified finger Qualifiers: Trigger finger location: ring finger Qualified Code(s): M65.342 - Trigger finger, left ring finger Plan: - Submit an orthopedic referral to [facility] for evaluation and management of the trigger finger, including potential intervention options such as corticosteroid injection or surgical treatment. - No splinting was applied as the patient has been managing without it and opted to forgo immediate intervention. - Advised patient to follow up with [facility] if no contact is made by the end of the next week. Patient was informed and verbally consented to the use of an ambient scribe for clinic note documentation during this visit. Orders: Referrals Orthopedics Referral M65.30 - Trigger finger, unspecified finger Coding Level of Care Code Est Pt Level 4 (57129) Diagnoses Trigger ring finger of left hand M65.342 Trigger finger location: ring finger
[2024-09-28 11:51] VITALS: BP 132/80; PULSE 76; O2SAT 94
== END 2024-09-28 12:09 | disposition home or self-care (01) ==
PROVIDERS: PCP Nurse Practitioner Family; Visit Provider Physician Assistant
DX: M65.342 Trigger finger, left ring finger (principal)

== ENCOUNTER → 2024-09-28 11:16 | Outpatient (BNVA) | payer MEDICARE, SELFPAY | PROVIDERS: PCP Nurse Practitioner Family; Visit Provider Physician Assistant | DX: M65.342 Trigger finger, left ring finger (principal) | CPT/HCPCS: 99212 ==

== ENCOUNTER 2024-11-12 09:43 | Outpatient (AMB) | payer MEDICARE, SELFPAY ==
[2024-11-12 09:45] VITALS: BP 138/80; PULSE 76; TEMP 36.8; O2SAT 97; BMI 25.7
--- NOTE | 2024-11-12 09:45 | MHC.PC.OV ---
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 Accompanied by: Self / Same As Patient Allergies No Known Allergies [No Known Allergies*] Allergy (Verified 11/12/24 09:46) Tobacco use date assessed: 11/12/24 Fall risk assessment: No Falls in past year Last assessed Fall Risk: 11/12/24 Dental Screening Dental Screen Date: 11/12/24 Did you have a dental visit in the last 12 months?: Yes Did you have a dental problem in the last 6 months where you did not have access to dental care?: No Was dental information given to patient?: Patient has dentist HPI 6 month follow up - HTN HPI Details Chief Complaint Request for evaluation of home blood pressure readings. History of Present Illness The patient is a 74-year-old male presenting with a request for home blood pressure monitoring evaluation. His blood pressure readings have been stable when measured at home. He reports no associated symptoms like chest pain, shortness of breath, dizziness, or headache. He quit smoking in 2017 and does not exhibit any edema. Historically, he denies using tobacco since cessation. There are no reports of current or exacerbated symptoms related to his hypertension, indicating stable management of his condition. Social History - Tobacco: Prior smoker, quit in 2017 - Denies current tobacco use Health Maintenance - Denies interest in low-dose CT scan for lung cancer screening Review of Systems - Cardiovascular: Denies chest pain - Respiratory: Denies shortness of breath - Neurological: Denies dizziness, headache - Ophthalmologic: Denies vision changes Physical Exam General: Cooperative, healthy appearing, comfortable, no acute distress and well developed Orientation: Patient oriented x3 Limitations: No limitations Head: Normal to inspection Ears: Hearing grossly normal bilaterally Nose: Normal external nose present Face and sinus: Normal facial exam Eyes: Appearance normal, both eyes and all related structures Neck: Normal visual inspection and Yes full ROM Respiratory: Normal respiratory effort and able to speak in complete sentences. Clear to auscultation bilaterally Cardiovascular: Regular rate and rhythm. Normal S1 and S2 GI: Normal to inspection. Soft to palpation and nontender Skin: No rashes or lesions noted Neuro: Patient oriented x3 Extremities: Normal to inspection Results Plan - Continue monitoring of blood pressure with home measurements - Reinforce lifestyle modifications consistent with hypertension management, such as dietary adjustments and stress management - Discussion about low-dose CT scan as a precaution for prior smoking history was declined, no further action needed Patient was informed and verbally consented to the use of an ambient scribe for clinic note documentation during this visit. Discussion Notes I discussed the stability of the patient?s blood pressure readings and confirmed the absence of any acute symptoms. Given the previous smoking history, I proposed a low-dose CT scan for lung cancer screening, but the patient declined. We reviewed the importance of maintaining lifestyle modifications for hypertension management, including dietary adjustments and stress reduction. I reiterated the self-monitoring at home for any changes in symptoms and provided assurance of the current management plan?s effectiveness. Patient Instructions - Continue current blood pressure monitoring at home - Maintain prescribed lifestyle modifications, including diet and exercise - Report any new symptoms such as chest pain, vision changes, or shortness of breath promptly - Follow up as scheduled for regular blood pressure evaluations [facility] Medical History Hip bursitis, left Barretts esophagus Surgical History History of hip surgery History of elbow surgery History of shoulder surgery History of knee surgery History of cervical spinal surgery Previous back surgery Family History Paternal Grandfather Substance use disorder Social History Housing: House Alcohol intake: current Alcohol intake frequency: 0-2 drinks per day Alcohol type: beer and hard liquor Patient Tobacco Use Status: Former Tobacco user Tobacco use type: Cigarette e-Cigarette/Vaping Use: Never Used Second Hand Smoke Exposure: No service: No Current occupational status: retired Cognitive needs: No Hearing needs: No Vision needs: Yes Questionnaire PHQ-9 Over the last 2 weeks, how often have you been bothered by any of the following problems? 1. Little interest or pleasure in doing things: not at all 2. Feeling down, depressed, or hopeless: not at all 3. Trouble falling or staying asleep, or sleeping too much: not at all 4. Feeling tired or having little energy: not at all 5. Poor appetite or overeating: not at all 6. Feeling bad about yourself - or that you are a failure or have let yourself or your family down: not at all 7. Trouble concentrating on things, such as reading the newspaper or watching television: not at all 8. Moving or speaking so slowly that other people could have noticed. Or the opposite - being so fidgety or restless that you have been moving around a lot more than usual: not at all 9. Thoughts that you would be better off or of hurting yourself in some way: not at all Total score: 0 Depression Screening Interpretation: Negative Depression Screening Done: Yes 42893 - PHQ-9 Billing: Yes Source: Developed by Drs. Dustin Galarza, June Bellamy, William Lopez and colleagues, with an educational janice from [employer]. Thrive Questionnaire Date Thrive assessed: 11/12/24 I am a: Patient What is your living situation today?: I have a steady place to live Within the past 12 months, did the food you bought not last and you didn't have the money to get more?: Never true Within the past 12 months, did you worry whether your food would run out before you got money to buy more?: Never true Do you have trouble paying for medicines?: No Do you have trouble getting transportation to medical appointments?: No Do you have trouble paying your heating and electricity bill?: No Do you have trouble taking care of your child, family member or friend?: No Do you have trouble with day-to-day activities such as bathing, preparing meals, shopping, managing finances, etc.?: No Are you currently unemployed and looking for a job?: No Are you interested in more education?: No Please select the resources that you would like help with: None Currently or been in a relationship where the following occur: No concerns reported THRIVE Score: 0 AUDIT C Alcohol Use Questionnaire (AUDIT-C) 1. How often do you have a drink containing alcohol?: 4 or more times a week 2. How many drinks containing alcohol do you have on a typical day when you are drinking?: 3 or 4 3. How often do you have six or more drinks on one occasion?: Never Total Score: 5 Score Reviewed/Action Taken: Yes GERDA-7 AMB Questionnaire GERDA-7 Date GERDA - 7 assessed: 11/12/24 Feeling nervous, anxious, or on edge: 0 = Not at all Not being able to stop or control worryin = Not at all Worrying too much about different things: 0 = Not at all Trouble relaxin = Not at all Being so restless that it is hard to sit still: 0 = Not at all Becoming easily annoyed or irritable: 0 = Not at all Feeling afraid as if something awful might happen: 0 = Not at all Total GREDA-7 score (0-4 normal; 5-9 mild; 10-14 moderate; 15-21 severe): 0 Source: Developed by Drs. Dustin Galarza, June Bellamy, William Lopez and colleagues, with an educational janice from [employer]. GERDA-7 Assessment Billing GERDA-7 Assessment Tool: GERDA-7 Assessment 78654 Physical exam (Primary Care) Vital Signs: Last Vital Signs Temp 98.2 F 11/12/24 09:45 Pulse 76 11/12/24 09:45 BP 138/80 11/12/24 09:45 Pulse Ox 97 11/12/24 09:45 BMI result Body Mass Index 25.7 Tobacco/Smoking Status: Tobacco use Status Tobacco use date assessed 11/12/24 11/12/24 09:51 Patient Tobacco Use Status Former Tobacco user 11/12/24 09:51 Tobacco use type Cigarette 11/12/24 09:51 e-Cigarette/Vaping Use Never Used 11/12/24 09:51 PHQ-9: PHQ-9 Score PHQ-9: Total score 0 11/12/24 09:51 Depression Screening Interpretation: Negative Thrive Assessment: Date of Thrive Assessment Date Thrive assessed 11/12/24 11/12/24 09:51 Currently or been in a relationship where the following occur: No concerns reported Coding Level of Care Code Est Pt Level 3 (17250) Diagnoses Screening PSA (prostate specific antigen) Z12.5 HTN (hypertension) I10 Additional Codes GERDA-7 Assessment Billing - GERDA-7 Assessment Tool: GERDA-7 Assessment 53839 ([id number]) PHQ-9 - 30779 - PHQ-9 Billing: Yes ([id number]) Assessment & Plan Assessment & Plan (1) Screening PSA (prostate specific antigen): Code(s): Z12.5 - Encounter for screening for malignant neoplasm of prostate Category: Medical (2) HTN (hypertension): Code(s): I10 - Essential (primary) hypertension Category: Medical Plan . Orders: Orders Prostate Specific Antigen Scr Today Z12.5 - Encounter for screening for malignant neoplasm of prostate
--- OUTSIDE RECORDS SUMMARY | 2024-11-12 10:10 | XMS_ITS | Data Portability ---
Author Organization [facility], [facility] Address [address] [place] [address] Care Team Providers Care Senior Clinical Research Scientist Name Role Phone STACY MYERS Primary Care Provider Assessment Encounter Date Assessment Date Assessment LastModified by Organization Details LastModified Time 11/02/2024 11/02/2024 Assessment: Left ring trigger finger, initial diagnosis Plan: Pathophysiology of this problem has been reviewed in detail with the patient. Treatment options have been reviewed including a cortisone injection versus surgical treatment. He has elected to proceed with surgical release. Booking sheet is completed for left ring trigger finger release surgery. We have discussed the postoperative recovery course for the recommended surgery. Risks of surgery include but are not limited to: Infection, bleeding, damage normal tissues, need for future surgeries, and recurrent or recalcitrant symptoms after surgery. Questions asked and answered to the patient's satisfaction; surgery to be scheduled with my patient care secretary. Not available 11/02/2024 13:38:25 Plan of Treatment Reminders Order Date Submit Date Provider Last Modified By Organization Details Last Modified Time Details Appointments SURGERY @ [facility] 2024 12:15P M Jazmine sánchez MD Not available Not available Not available POST OP 30 2024 09:30A M Maya Tello, OTR/L,CHT Not available Not available Not available Lab None recorde d. Referral None recorde d. Procedures None recorde d. Surgeries tenosyn ovectom y (SURG) 2024 025 [email or web address] [facility], [address], [place], [address], 11/06/2024 09:02:53 Imaging XR, shoulde r, 2 or more view - 209 left shoulde r 4v 2023 024 [email or web address] [facility], [address], [address], [place], [address], 05/07/2024 09:36:44 XR, hip + pelvis, unilate ral, 2 or 3 view - room 205 lt hip AB protcol . ALTHR 2020 024 [email or web address] [facility], [address], [address], [place], [address], 07/18/2024 08:59:43 XR, hip + pelvis, unilate ral, 2 or 3 view - room 211 lt hip 2v cw 2024 025 [facility], [address], [place], [address], 11/06/2024 10:28:07 Medication Orders meloxic am 15 mg tablet 2024 025 [email or web address] [id number], [address], [place], [id number], 10/25/2024 14:44:17 Patient TargetsNo targets recorded. Patient Instructions Encounter Date Encounter Id Patient Instructions Last Modified By Organization Details Last Modified Time 10/25/[id number] hip bursitis: exercises Not available 10/25/2024 14:44:17 trochanteric bursitis: exercises Not available 10/25/2024 14:44:17 Reason for Referral None Reported. Results Created Date Observation Date Name Description Value Unit Range Abnormal Flag Note LastModifiedBy Organization Detail LastModifiedTime 04/17/20 24 04/17/2024 XR, shoul faustina, 2 or more view [email or web address] ?Encry pted=s hAaTro YD8dLq bEUv6g %2BXZw aYqtaq 0bqfl% 2Fg9IQ a4ajBk vP9nXo QUaueC m3YtLR FvZlgJ JJ8mAn HZtai3 7g3299 AC0Kpb nyEUab eUC8mr 84%3D INTERFACE [facility] [address], [place], [address], 04/17/2024 08:34:40 04/17/20 24 04/17/2024 XR, shoul faustina, 2 or more view [email or web address] ?Encry pted=s hAaTro YD8dLq bEUv6g %2BXZw aYqtaq 0bqfl% 2Fg9IQ a4ajBk vP9nXo QUaueC m3YtLR FvZlgJ JJ8mAn HZtai3 7y3573 AC0Kpb nyEUab eUC8mr 84%3D INTERFACE [facility] [address], [place], [address], 04/17/2024 08:34:42 06/09/20 24 08/10/2021 imagi ng/di agnos tic resul t No observ ation record ed. [email or web address] Not Available 05/12 01:56:57 06/26/20 24 06/26/2024 XR, hip + pelvi s, unila teral , 2 or 3 view [email or web address] ?Encry pted=s hAaTro YD8dLq bEUv6g %2BXZw aYqtaq 0bqfl% 2Fg9IQ a4ajBk vP9nXo QUaueC m3YtLR FvZlgJ JJ8mAn HZtai3 8y7890 AC0Kqa niHVKS hKiQtr MwF INTERFACE [facility] [address], [place], [address], 06/26/2024 13:15:54 06/26/20 24 06/26/2024 XR, hip + pelvi s, unila teral , 2 or 3 view [email or web address] ?Encry pted=s hAaTro YD8dLq bEUv6g %2BXZw aYqtaq 0bqfl% 2Fg9IQ a4ajBk vP9nXo QUaueC m3YtLR FvZlgJ JJ8mAn HZtai3 0x3455 AC0Kqa niHVKS hKiQtr MwF INTERFACE [facility] [address], [place], [address], 06/26/2024 13:15:56 10/25/19 25 10/25/2024 XR, hip + pelvi s, unila teral , 2 or 3 view [email or web address] ?Encry pted=s hAaTro YD8dLq bEUv6g %2BXZw aYqtaq 0bqfl% 2Fg9IQ a4ajBk vP9nXo QUaueC m3YtLR FvZl JJ8[place] HZtai3 8c8901 AC0Kqb 3iBV6G lKiQtr MwF INTERFACE [facility] [address], [place], [address], 10/25/2024 14:19:20 10/25/19 25 10/25/2024 XR, hip + pelvi s, unila teral , 2 or 3 view [email or web address] ?Encry pted=s hAaTro YD8dLq bEUv6g %2BXZw aYqtaq 0bqfl% 2Fg9IQ a4ajBk vP9nXo QUaueC m3YtLR FvZlg JJ8mAn HZtai3 0e8520 AC0Kqb 3iBV6G lKiQtr MwF INTERFACE [facility] [address], [place], [address], 10/25/2024 14:19:22 Result Notes None recorded. Problems Name Problem SNOMED Code Status Onset Date Resolution Date Notes Provider Name and Address Organization Details Recorded Time Pain of left shoulder joint 551238655163 40699 Active 2023 PAOLA albarran, [place] - [facility] 08:25:18 Bursitis of olecranon of left elbow 654482653247 101 Active 2016 Problem Code: M70.22; Problem Code Type: ICD-10; Status: 'A'; Not Available [facility] 11:27:47 Problem Notes None recorded. Procedures Surgical History Date Name Laterality Status Provider Name and Address Organization Details Recorded Time 4 Sports Shoulder 4&1 completed Paulette Ely PA-C [address], [place], [address], [facility] - [facility] 04/27/2024 12:58:45 Imaging Results Imaging Date Name Status LastModified by Organiz ation Details LastModified Time 04/17/2024 XR, shoulder, 2 or more view completed INTERFACE [facility] [address], [place], [address], 04/17/2024 08:34:40 04/17/2024 XR, shoulder, 2 or more view completed INTERFACE [facility] [address], [place], [address], 04/17/2024 08:34:42 08/10/2021 imaging/diag nostic result completed [email or web address] Information not available 06/09/2024 01:56:57 06/26/2024 XR, hip + pelvis, unilateral, 2 or 3 view completed INTERFACE [facility] [address], [place], [address], 06/26/2024 13:15:54 06/26/2024 XR, hip + pelvis, unilateral, 2 or 3 view completed INTERFACE [facility] [address], [place], [address], 06/26/2024 13:15:56 10/25/2024 XR, hip + pelvis, unilateral, 2 or 3 view completed INTERFACE [facility] [address], [place], [address], 10/25/2024 14:19:20 10/25/2024 XR, hip + pelvis, unilateral, 2 or 3 view completed [facility] [address], [place], [address], 10/25/2024 14:19:22 Procedure Notes None recorded. Medical Equipment None Reported. Allergies No known drug allergies Medications Name Sig Start Date Stop Date Status Note LastModified by Organization Details LastModified Time atorvastati n 20 mg tablet TAKE 1 TABLET BY MOUTH AT BEDTIME active Not Available Not Available No t Available lisinopril 20 mg-hydrochl orothiazide 12.5 mg tablet TAKE 1 TABLET DAILY active Not Available Not Available No t Available meloxicam 15 mg tablet TAKE 1 TABLET BY MOUTH DAILY WITH MEALS active Not Available Not Available No t Available peg-electro lyte solution 420 gram oral solution 04/17 completed Not Available Not Available Not Available amlodipine 10 mg tablet TAKE 1 TABLET DAILY active Not Available Not Available No t Available pseudoephed rine-guaife nesin ER 80-700 mg tablet,exte nded release DO NOT DRIVE WHILE ON THIS MEDICATIO N 01/16 completed Statu s: 'Disc ontin ued'; Not Available Not Available Not Available omeprazole 20 mg capsule,del ayed release TAKE 1 CAPSULE TWICE DAILY active Not Available Not Available No t Available cyclobenzap rine 5 mg tablet 04/17 completed Not Available Not Available Not Available amoxicillin Amoxicill in 125MG Tablet Chewable 04/17 completed Statu s: 'Curr ent'; Not Available Not Available Not Available celecoxib 50 mg capsule TAKE 1 CAPSULE BY MOUTH TWICE DAILY 04/17 completed Not Available Not Available Not Available oxycodone HCl-oxycodo ne-ASA RX GIVEN AT [facility], AT TIME OF SURGERY 04/17 completed Statu s: 'Curr ent'; Not Available Not Available Not Available Vitals Date Recorded Body height Body mass index (BMI) Body weight Provider Name and Address Organization Details Last Updated DateTime 04/17/2024 172.72 cm 24.3 kg/m2 78342.78 g PAOLA Johnson [facility] 04/17/2024 08:23:59 Date Recorded Body height Body mass index (BMI) Body weight Provider Name and Address Organization Details Last Updated DateTime 04/27/2024 172.72 cm 24.3 kg/m2 46227.78 g WALT CASTLE [facility] 04/27/2024 11:00:43 Date Recorded Body height Body mass index (BMI) Body weight Provider Name and Address Organization Details Last Updated DateTime 06/26/2024 172.72 cm 24.3 kg/m2 39756.78 g [facility] 06/26/2024 13:08:27 Date Recorded Body height Body mass index (BMI) Body weight Provider Name and Address Organization Details Last Updated DateTime 10/25/2024 172.72 cm 24.3 kg/m2 84052.78 g [facility] 10/25/2024 14:07:34 Date Recorded Body height Body mass index (BMI) Body weight Provider Name and Address Organization Details Last Updated DateTime 11/02/2024 172.72 cm 24.3 kg/m2 95058.78 g RAYMOND DEJESUS [facility] 11/02/2024 13:01:41 Social History None recorded. Functional Status None recorded. Mental Status None recorded. Family History Nothing Reported. Medical History No medical history recorded. Past Encounters Encounter ID Performer Location Encounter Start Date Encounter Closed Date Diagnosis/Indication Diagnosis SNOMED-CT Code Diagnosis ICD10 Code Diagnosis Note [id number] [facility] [address] [place] [address] 04/17/2024 08:04:48 05/07/2024 09:36:44 Pain of left shoulder joint [id number] 5163838 M25.512 Osteoarthr itis of joint of left shoulder region 7548673994 74382 M19.431 [id number] [facility] [address] [place] [address] 04/27/2024 10:15:19 05/16/2024 13:21:50 Osteoarthritis of joint of left shoulder region 3136147423 93871 M19.273 [id number] Paulette Ely PA-C [facility] [address] [place] [address] 06/26/2024 12:32:38 07/18/2024 08:59:43 History of total replacement of left hip joint 6773120516 056883 Z96.920 [id number] [facility] [address] [place] [address] 10/25/2024 13:34:13 11/06/2024 10:28:07 History of repair of hip joint 452609526 Z96.642 Trochanter ic bursitis of left hip 6393074073 31108 M70.62 [id number] MD HARSH [facility] [address] [place] [address] 11/02/2024 12:46:54 11/02/2024 13:38:40 Triggering of digit 862801274 M65.342 Health Concerns Section Related Observation LastModified by Organization Detai ls LastModified Time None Recorded Concern Status LastModified by Organization Details LastModified Time None Recorded Advance Directives Directive None Recorded Payers Encounter Date Sequence Insurance Name Policy Number Policy Worley Covered Member ID Worley Member ID Guarantor Name 04/17/2024 1 [place] HMO) [id number] Vernon Reilly Jr [id number] Vernon Reilly 04/27/2024 1 [place] HMO) [id number] Vernon Reilly Jr [id number] Vernon Reilly 06/26/2024 1 [place]) [id number] Vernon Reilly Jr [id number] Vernon Reilly 10/25/2024 1 [place] HMO) [id number] Vernon Reilly Jr [id number] Vernon Reilly 11/02/2024 1 [place] HMO) [id number] Vernon Reilly [id number] Vernon Reilly Notes Date Note Type Note Provider Name and Address Organization Details Recorded Time 04/17/2024 text/html I am seeing the patient today under the supervision of Dr. Samayoa who was available but who did not see the patient. HPI: Vernon presents to the office today for an evaluation of his left shoulder. He has a history of a left shoulder arthroscopy performed by Dr. Omar petty in 2013. He indicates that he developed some discomfort a few months ago without a precipitating event. No recent trauma. His shoulder pain flared up after he attended a concert at [facility]. On the ride home he noticed a deep aching pain over the anterior aspect of the shoulder. Fortunately he is right-hand dominant. He cannot pinpoint aggravating factors. Denies any stiffness or weakness. He does not have any neck pain or radicular symptoms. He is not taking any medication for his shoulder. He is here today for treatment recommendations. PMH/PSH/MEDS/ALL/FMH /SOC HX/ROS are reviewed in detail per my medical intake sheet. General Exam: Vital signs are as noted below Mental status: Alert and lucid. Normal insight, affect and grooming. PHONE COUNSELOR: Gross motor coordination is intact. No spasticity or clonus noted. EXAMINATION: The patient is well appearing and in no apparent distress. Alert and oriented x3. Gait is symmetric. {{Right Left*}} shoulder reveals no obvious deformity upon inspection. No edema, erythema, ecchymosis, or lesions. Good muscle bulk without atrophy. Neurovascularly intact. No localized tenderness. ROM full in all planes. Mild crepitus noted. Negative impingement signs, Speed's, O'Briens, cross arm adduction. 5/5 strength including rotator cuff and periscapular musculature. No evidence of instability of the shoulder. Cervical spine exam reveals no obvious deformity upon inspection. No edema, erythema, ecchymosis, or lesions. No localized tenderness. ROM is full in all planes and pain free. No focal neurologic deficits in the upper extremities. X-rays ordered, obtained and reviewed at [facility] today include 4 views of the left shoulder. Images reveal severe glenohumeral joint OA with subchondral sclerosis and osteophyte formation. No acute fracture or lesion. IMPRESSION: Left shoulder severe glenohumeral joint osteoarthritis PLAN: The natural progression of osteoarthritis has been discussed in addition to conservative versus surgical treatment options. The patient feels as if he is managing his symptoms well presently. I advised him to take an dzrx-qrp-qibegjp NSAID as needed. Side effects have been reviewed. If his shoulder pain increases he will call the office to schedule a cortisone injection. He is aware that a last resort option for his shoulder is a total shoulder arthroplasty. He has no interest in surgical intervention. All questions answered Paulette Ely PA-C [address] [facility], [place], [address], [facility] - [facility] 04/17/2024 09:12:30 04/27/2024 text/html I am seeing the patient today under the supervision of Dr. Ortiz who was available but who did not see the patient. HPI: Vernon presents to the office today for a recheck of his left shoulder. He has a history of a left shoulder arthroscopy performed by Dr. Omar petty in 2013. He indicates that he developed some discomfort a few months ago without a precipitating event. No recent trauma. His shoulder pain flared up after he attended a concert at [facility]. On the ride home he noticed a deep aching pain over the anterior aspect of the shoulder. Fortunately he is right-hand dominant. He cannot pinpoint aggravating factors. Denies any stiffness or weakness. He decided To hold off on a cortisone injection at his last visit, but after some thought has elected to proceed.. PMH/PSH/MEDS/ALL/FMH /SOC HX/ROS are reviewed in detail per my medical intake sheet. General Exam: Vital signs are as noted below Mental status: Alert and lucid. Normal insight, affect and grooming. PHONE COUNSELOR: Gross motor coordination is intact. No spasticity or clonus noted. EXAMINATION: The patient is well appearing and in no apparent distress. Alert and oriented x3. Gait is symmetric. {{Right Left*}} shoulder reveals no obvious deformity upon inspection. No edema, erythema, ecchymosis, or lesions. Good muscle bulk without atrophy. Neurovascularly intact. No localized tenderness. ROM full in all planes. Mild crepitus noted. Negative impingement signs, Speed's, O'Briens, cross arm adduction. 5/5 strength including rotator cuff and periscapular musculature. No evidence of instability of the shoulder. Cervical spine exam reveals no obvious deformity upon inspection. No edema, erythema, ecchymosis, or lesions. No localized tenderness. ROM is full in all planes and pain free. No focal neurologic deficits in the upper extremities. X-rays ordered, obtained and reviewed at [facility] Previously include 4 views of the left shoulder. Images reveal severe glenohumeral joint OA with subchondral sclerosis and osteophyte formation. No acute fracture or lesion. IMPRESSION: Left shoulder severe glenohumeral joint osteoarthritis PLAN: The patient was thoroughly counseled today regarding their shoulder condition, its natural history, and the treatment options including physical therapy, medication, and a corticosteroid injection. The patient is interested in receiving an injection with corticosteroid. The {{right left*}} shoulder was prepped sterilely and an intra-articular injection was administered utilizing 40mg of Kenalog and 4cc of 0.25% Marcaine. The patient tolerated the procedure well. Post-injection precautions were discussed. He is aware that this injection can be repeated in 3 months if needed. All questions answered. Paulette Ely PA-C [address] [place] [address] [address], [place], [address], [facility] - [facility] 04/27/2024 13:01:31 06/26/2024 text/html I am seeing the patient today under the supervision of Dr. Samayoa who was available but who did not see the patient. HPI: Vernon presents to the office today for a recheck of his left hip. He is status post left total hip arthroplasty performed by Dr. Ortiz in 2020. Over the past month or so he has noticed a minor discomfort deep in the groin. His pain is not constant, but rather comes and goes. He has been active and performing his daily activities without any difficulty. Denies low back pain or radicular symptoms. He is here to ensure that there is no issue with his hip replacement. PMH/PSH/MEDS/ALL/FMH /SOC HX/ROS are reviewed in detail per my medical intake sheet. General Exam: Vital signs are as noted below Mental status: Alert and lucid. Normal insight, affect and grooming. PHONE COUNSELOR: Gross motor coordination is intact. No spasticity or clonus noted. EXAMINATION: The patient is well appearing and in no apparent distress. Alert and oriented x3. Gait is symmetric. {{Right Left*}} hip reveals a surgical scar, otherwise no obvious deformity upon inspection. No edema, erythema, ecchymosis, or lesions. Neurovascularly intact. No localized tenderness. ROM is pain-free. Negative straight leg raise. No instability. 5/5 strength. Calf/leg compartments soft and compressible. X-rays ordered, obtained and reviewed at [facility] today include an AP pelvis and lateral view of the left hip. Images reveal total hip arthroplasty components to be in good position and without evidence of loosening. No acute fracture or lesion. IMPRESSION: Status post left total hip arthroplasty PLAN: Clinically the patient's exam is within normal limits today. X-rays show total hip arthroplasty components to be in good position. I suggested that he take an NSAID consistently over the next couple of weeks. He prefers to take over the counter NSAIDs. Side effects have been reviewed. If his symptoms do not improve he will call the office. As noted above, he has only been experiencing sporadic groin discomfort which is not limiting his activities. All questions answered. Paulette Ely PA-C [address] [facility], [place], [address], [facility] - [facility] 06/27/2024 10:41:04 10/25/2024 text/html I am seeing the patient today under the supervision of Dr. Preston who was available but who did not see the patient. HPI: Vernon presents to the office today for a recheck of his left hip. He is status post left total hip arthroplasty performed by Dr. Ortiz in 2020. Over the past month or so he has noticed intermittent discomfort over the lateral hip. This past Tuesday his pain was quite significant. He describes his pain as being in the region of the greater trochanter. His pain is not constant, but rather comes and goes. He denies groin pain or radicular symptoms. He has not taken any medication for his pain. Today he is not having any discomfort in his hip. He is here for treatment recommendations. PMH/PSH/MEDS/ALL/FMH /SOC HX/ROS are reviewed in detail per my medical intake sheet. General Exam: Vital signs are as noted below Mental status: Alert and lucid. Normal insight, affect and grooming. PHONE COUNSELOR: Gross motor coordination is intact. No spasticity or clonus noted. EXAMINATION: The patient is well appearing and in no apparent distress. Alert and oriented x3. Gait is symmetric. {{Right Left*}} hip reveals a surgical scar, otherwise no obvious deformity upon inspection. No edema, erythema, ecchymosis, or lesions. Neurovascularly intact. Mild tenderness over the greater trochanter. ROM is pain-free. Negative straight leg raise. No instability. 5/5 strength. Calf/leg compartments soft and compressible. X-rays ordered, obtained and reviewed at [facility] today include an AP pelvis and lateral view of the left hip. Images reveal total hip arthroplasty components to be in good position and without evidence of loosening. No acute fracture or lesion. IMPRESSION: Left hip greater trochanteric bursitis status post left total hip arthroplasty PLAN: The diagnosis has been explained to the patient along with conservative treatment options. A prescription for meloxicam was sent to his pharmacy. He will take this as an anti-inflammatory. Side effects have been reviewed. A structured home exercise program has also been given. If his hip pain increases he will call the office in order to schedule a cortisone injection. Due to him being minimally symptomatic today, we elected to hold off on an injection. All questions answered. Paulette Ely PA-C [address], [place], [address], [facility] 10/25/2024 14:48:24 11/02/2024 text/html 74-year-old male seen for initial evaluation of left hand ring finger trigger finger. He reports that the finger was locking and has now gotten to a point where he has difficulty fully bending it. No prior history of trigger fingers but he is a friend who had a surgery recently for trigger finger release and did well with the procedure. Jazmine Miller MD [address], [place], [address], [facility] 11/02/2024 13:38:38
--- OUTSIDE RECORDS SUMMARY | 2024-11-12 10:11 | XMS_ITS | Continuity of Care Document ---
Author Organization [place] - [facility], HARSH Nayak 2nd floor Address [address] [place] [address] Care Team Providers Care Tow Driver Name Role Phone STACY MYERS Primary Care Provider Assessment No assessment recorded. Plan of Treatment Reminders Order Date Submit Date Provider Last Modified By Organization Details Last Modified Time Details Appointments SURGERY @ [facility] 2024 12:15P M Jazmine sánchez MD Not available Not available Not available POST OP 30 2024 09:30A M Maya Tello, OTR/L,CHT Not available Not available Not available Lab None recorde d. Referral None recorde d. Procedures None recorde d. Surgeries None recorde d. Imaging XR, hip + pelvis, unilate ral, 2 or 3 view - room 211 lt hip 2v cw 2024 025 [email or web address] [facility] Office, [address], [facility] [address], [place], [address], 11/06/2024 10:28:07 Medication Orders meloxic am 15 mg tablet 2024 025 [email or web address] [id number], [address] [place], [id number], 10/25/2024 14:44:17 Patient TargetsNo targets recorded. Patient Instructions Encounter Date Encounter Id Patient Instructions Last Modified By Organization Details Last Modified Time 10/25/[id number] hip bursitis: exercises Not available 10/25/2024 14:44:17 trochanteric bursitis: exercises Not available 10/25/2024 14:44:17 Reason for Referral None Reported. Results Created Date Observation Date Name Description Value Unit Range Abnormal Flag Note LastModifiedBy Organization Detail LastModifiedTime 10/25/1910/25/2024 XR, hip + pelvi s, unila teral , 2 or 3 view [email or web address] ?Encry pted=s hAaTro YD8dLq bEUv6g %2BXZw aYqtaq 0bqfl% 2Fg9IQ a4ajBk vP9nXo QUaueC m3YtLR FvZlgJ JJ8mAn HZtai3 0q7567 AC0Kqb 3iBV6G lKiQtr MwF INTERFACE [facility] [address], [place], [address], 10/25/2024 14:19:20 10/25/19 25 10/25/2024 XR, hip + pelvi s, unila teral , 2 or 3 view [email or web address]:/ [email or web address] ?Encry pted=s hAaTro YD8dLq bEUv6g %2BXZw aYqtaq 0bqfl% 2Fg9IQ a4ajBk vP9nXo QUaueC m3YtLR FvZlgJ JJ8mAn HZtai3 0o6907 AC0Kqb 3iBV6G lKiQtr MwF INTERFACE [facility] [address] [facility] [address], [place], [address], 10/25/2024 14:19:22 Result Notes None recorded. Problems Name Problem SNOMED Code Status Onset Date Resolution Date Notes Provider Name and Address Organization Details Recorded Time Pain of left shoulder joint 566456465263 91815 Active 2023 PAOLA albarran [place] - [facility] 4 08:25:18 Bursitis of olecranon of left elbow 132519424069 101 Active 2016 Problem Code: M70.22; Problem Code Type: ICD-10; Status: 'A'; Not Available [facility] 4 11:27:47 Problem Notes None recorded. Procedures Surgical History Date Name Laterality Status Provider Name and Address Organization Details Recorded Time 4 Sports Shoulder 4&1 completed Paulette Ely PA-C [address] [facility] [address], [place], [address], [facility] 04/27/2024 12:58:45 Imaging Results None recorded. Procedure Notes None recorded. Medical Equipment None [...] Available oxycodone HCl-oxycodo ne-ASA RX GIVEN AT [facility], AT TIME OF SURGERY 04/17 completed Statu s: 'Curr ent'; Not Available Not Available Not Available Vitals Date Recorded Body height Body mass index (BMI) Body weight Provider Name and Address Organization Details Last Updated DateTime 10/25/2024 172.72 cm 24.3 kg/m2 48721.78 g peter mendez [facility] 10/25/2024 14:07:34 Social History None recorded. Functional Status None recorded. Mental Status None recorded. Family History Nothing Reported. Medical History No medical history recorded. Past Encounters Encounter ID Performer Location Encounter Start Date Encounter Closed Date Diagnosis/Indication Diagnosis SNOMED-CT Code Diagnosis ICD10 Code Diagnosis Note [id number] PARESH Preciado [address] [place] [address] 10/25/2024 13:34:13 11/06/2024 10:28:07 History of repair of hip joint 943173470 Z96.642 Trochanter ic bursitis of left hip 0343358538 31484 M70.62 Health Concerns Section Related Observation LastModified by Organization Natasha silva LastModified Time None Recorded Concern Status LastModified by Organization Details LastModified Time None Recorded Payers Encounter Date Sequence Insurance Name Policy Number Policy Worley Covered Member ID Worley Member ID Guarantor Name 10/25/2024 1 [facility]: MEDICARE HMO BLUE (MEDICARE REPLACEMENT HMO) [id number] Vernon Tello Tommie [id number] Vernon Reilly Notes Date Note Type Note Provider Name and Address Organization Details Recorded Time 10/25/2024 text/html I am seeing the patient [...] hip. He is here for treatment recommendations. PMH/PSH/MEDS/ALL/FMH/ SOC HX/ROS are reviewed in detail per my medical intake sheet. General Exam: Vital signs are as noted below Mental status: Alert and lucid. Normal insight, affect and grooming. 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 No spasticity [...] compressible. X-rays ordered, obtained and reviewed at [facility] today include an AP pelvis and lateral [...] All questions answered. Paulette Ely PA-C [address] [facility] [address], [place], [address], [facility] - [facility] 10/25/2024 14:48:24
== END 2024-11-12 10:33 | disposition home or self-care (01) ==
PROVIDERS: PCP Nurse Practitioner Family; Visit Provider Nurse Practitioner Family
DX: Z12.5 Encounter for screening for malignant neoplasm of prostate (principal); I10 Essential (primary) hypertension

== ENCOUNTER → 2024-11-12 09:43 | Outpatient (BNVA) | payer MEDICARE, SELFPAY | PROVIDERS: PCP Nurse Practitioner Family; Visit Provider Nurse Practitioner Family | DX: I10 Essential (primary) hypertension (principal) | CPT/HCPCS: 96127; 99212 ==

== ENCOUNTER 2024-12-17 10:01 | Outpatient (AMB) | payer MEDICARE, SELFPAY ==
[2024-12-17 10:04] VITALS: BP 134/78; PULSE 76; O2SAT 96; BMI 33.6
--- NOTE | 2024-12-17 10:04 | MHC.OFFWIV ---
Intake Vital Signs 12/17/24 10:04 Height 5 ft Weight 172 lb BMI 33.6 BP 134/78 Blood Pressure Location Rt brachial Position Sitting Pulse 76 Pulse Source Pulse Oximeter Pulse Oximetry (%) 96 Oxygen Delivery Method Room Air Intake Visit Reasons: PE Lower back pain Intake Note: Patient here for lower back pain that has been an ongoing issue but this past month it has become very painful and difficulty walking long distances. Patient Tobacco Use Status: Former Tobacco user Allergies No Known Allergies [No Known Allergies*] Allergy (Verified 12/17/24 10:09) Do you need a note to return to daycare/school/sports/work: No HPI HPI Comments History of Present Illness Details History of Present Illness - The patient is a 74-year-old male presenting with exacerbation of chronic back pain and shooting pains down right leg, numbness in r foot - Chronic low back pain has been a longstanding issue with surgical interventions in 2003 and 2007 to address disc protrusions. - Recent exacerbation characterized by sharp pain radiating from the lower back to the right leg, accompanied by foot tingling over the past month. - Daily walking activities have been notably affected. - No history of sciatica prior to the current episode. - No changes in bladder or bowel function, no saddle anesthesia, but increased pain with leg extension. - Previous surgeries for disc protrusions were successful in alleviating symptoms until this episode. Physical Exam General: Cooperative, healthy appearing, comfortable, no acute distress and well developed Orientation: Patient oriented x3 Limitations: No limitations Head: Normal to inspection Ears: Hearing grossly normal bilaterally Nose: Normal external nose present Face and sinus: Normal facial exam Eyes: Appearance normal, both eyes and all related structures Neck: Normal visual inspection and Yes full ROM Respiratory: Normal respiratory effort and able to speak in complete sentences. Skin: No rashes or lesions noted Neuro: Patient oriented x3 Back/spine: no TTP to cervical, thoracic or lumbar spine, TTP lumbar back right side to buttocks Extremities: Normal to inspection, straight leg test + right side [facility] Hip bursitis, left Barretts esophagus Surgical History History of hip surgery History of elbow surgery History of shoulder surgery History of knee surgery History of cervical spinal surgery Previous back surgery Family History Paternal Grandfather Substance use disorder Social History Housing: House Alcohol intake: current Alcohol intake frequency: 0-2 drinks per day Alcohol type: beer and hard liquor Patient Tobacco Use Status: Former Tobacco user Tobacco use type: Cigarette e-Cigarette/Vaping Use: Never Used Second Hand Smoke Exposure: No service: No Current occupational status: retired Cognitive needs: No Hearing needs: No Vision needs: Yes Review of Systems Const All systems reviewed & are unremarkable except as noted in HPI and below Physical Exam Vital Signs: Last Vital Signs Pulse 76 12/17/24 10:04 BP 134/78 12/17/24 10:04 Pulse Ox 94 12/17/24 10:04 Oxygen Delivery Method Room Air 12/17/24 10:04 BMI result Body Mass Index 33.6 Assessment & Plan Assessment & Plan (1) Acute low back pain with right-sided sciatica: Code(s): M54.41 - Lumbago with sciatica, right side Qualifiers: Back pain laterality: right Qualified Code(s): M54.41 - Lumbago with sciatica, right side Plan: Plan Initiating treatment with prednisone at 40 mg daily for five days to manage inflammation affecting the sciatic nerve is advised. The patient should monitor for side effects such as increased appetite, mood changes, or insomnia due to prednisone, and it is recommended to take it in the morning. Post-prednisone, the use of Aleve naproxn if he has some continued pain with a dose of 440mg every 12 hours if further relief is needed. Monitoring neural function is crucial, especially due to the involvement of the sciatic nerve which controls bladder and bowel functions. Stretching exercises are recommended to alleviate symptoms and prevent recurrence. The patient should visit the ER immediately if there is any loss of bladder or bowel control. Patient was informed and verbally consented to the use of an ambient scribe for clinic note documentation during this visit. Medications: New prednisone 40 mg (2 x 20 mg) PO DAILY 10 tabs 0RF Coding Level of Care Code Est Pt Level 3 (47648) Diagnoses Acute right-sided low back pain with right-sided sciatica M54.41 Back pain laterality: right
--- OUTSIDE RECORDS SUMMARY | 2024-12-17 11:06 | XMS_ITS | Data Portability ---
Author Organization [facility], [facility] Address [address] [place] [address] Care Team Providers Care Can Machine Operator Name Role Phone STACY MYERS Primary Care [...] satisfaction; surgery to be scheduled with my erp business analyst. Not available 11/02/2024 13:38:25 11/28/2024 11/28/2024 74-year-old male returns today for follow-up evaluation status post left ring finger tenolysis on November 15, 2024 Who is overall doing well. Sutures removed Steri-Strips reapplied. Is provided a home exercise program for digital range of motion. Provided putty for registered nurse cardiovascular icu strength. Educated in scar massage. He may follow-up symptomatically going forward. [email or web address] Not available 11/28/2024 12:26:07 Plan of Treatment Reminders Order Date Submit Date Provider Last Modified By Organization Details Last Modified Time Details Appointments None recorded. Lab None recorded. Referral None recorded. Procedures None recorded. Surgeries tenosynovec kai (SURG) 11/15/ 025 [email or web address] 0 [facility], [address], [place], [address], 5 09:02:53 Imaging XR, hip + pelvis, unilateral, 2 or 3 view - room 211 lt hip 2v cw 2024 025 [email or web address] [facility], [address], [address], [place], [address], 5 10:28:07 XR, hip + pelvis, unilateral, 2 or 3 view - room 205 lt hip AB protcol. ALTHR 2020 024 [email or web address] [facility] Office, [address], [address], [place], [address], 4 08:59:43 Medication Orders meloxicam 15 mg tablet 2024 025 [email or web address] [id number], [address], [place], [id number], 5 14:44:17 Patient TargetsNo targets recorded. Patient Instructions Encounter Date Encounter Id Patient Instructions Last Modified By Organization Details Last Modified Time 10/25/[id number] hip bursitis: exercises Not available 10/25/2024 14:44:17 [...] a4ajBk vP9nXo QUaueC m3YtLR FvZlgJ JJ8mAn HZtai3 0b9721 AC0Kpb nyEUab eUC8mr 84%3D INTERFACE [facility] [address], [place], [address], 04/17/2024 08:34:40 04/17/20 24 04/17/2024 XR, shoul faustina, 2 or more view [email or web address]:/ [email or web address] ?Encry pted=s hAaTro YD8dLq bEUv6g %2BXZw aYqtaq 0bqfl% 2Fg9IQ a4ajBk vP9nXo QUaueC m3YtLR FvZlgJ JJ8mAn HZtai3 6h3718 AC0Kpb nyEUab eUC8mr 84%3D INTERFACE [facility] [address], [place], [address], 04/17/2024 08:34:42 06/09/20 24 08/10/2021 imagi ng/di agnos tic resul t No observ ation record ed. [email or web address] Not Available 05/12 01:56:57 06/26/20 24 06/26/2024 XR, hip + pelvi s, unila teral , 2 or 3 view [email or web address]:/ [email or web address] ?Encry pted=s hAaTro YD8dLq bEUv6g %2BXZw aYqtaq 0bqfl% 2Fg9IQ a4ajBk vP9nXo QUaueC m3YtLR FvZlgJ JJ8mAn HZtai3 7f2331 AC0Kqa niHVKS hKiQtr MwF INTERFACE [facility] [address], [place], [address], 06/26/2024 13:15:54 06/26/20 24 06/26/2024 XR, hip + pelvi s, unila teral , 2 or 3 view http:/ [email or web address] ?Encry pted=s hAaTro YD8dLq bEUv6g %2BXZw aYqtaq 0bqfl% 2Fg9IQ a4ajBk vP9nXo QUaueC m3YtLR FvZlgJ JJ8mAn HZtai3 1g2962 AC0Kqa niHVKS hKiQtr MwF INTERFACE [facility] [address] [facility] [address] [facility] [address], [place], [address], 06/26/2024 13:15:56 10/25/19 25 10/25/2024 XR, hip + pelvi s, unila teral , 2 or 3 view http:/ [email or web address] ?Encry pted=s hAaTro YD8dLq bEUv6g %2BXZw aYqtaq 0bqfl% 2Fg9IQ a4ajBk vP9nXo QUaueC m3YtLR FvZlgJ JJ8mAn HZtai3 7x3880 AC0Kqb 3iBV6G lKiQtr MwF INTERFACE [facility] [address] [facility] [address], [place], [address], 10/25/2024 14:19:20 10/25/19 25 10/25/2024 XR, hip + pelvi s, unila teral , 2 or 3 view http:/ [email or web address] ?Encry pted=s hAaTro YD8dLq bEUv6g %2BXZw aYqtaq 0bqfl% 2Fg9IQ a4ajBk vP9nXo QUaueC m3YtLR FvZlgJ JJ8mAn HZtai3 1x4158 AC0Kqb 3iBV6G lKiQtr MwF INTERFACE [facility] [address] [facility] [address], [place], [address], 10/25/2024 14:19:22 Result Notes None recorded. Problems Name Problem SNOMED Code Status Onset Date Resolution Date Notes Provider Name and Address Organization Details Recorded Time Pain of left shoulder joint 397012739709 96399 Active 2023 PAOLA albarran [place] - [facility] 08:25:18 Triggerin g of digit 246011693 Active 2024 Isai Leung PA-C [address], [facility] [place], [address] , [facility] 12:23:46 Bursitis of olecranon of left elbow 203946876597 101 Active 2016 Problem Code: M70.22; Problem Code Type: ICD-10; Status: 'A'; Not Available [facility] 11:27:47 Problem Notes None recorded. Procedures Surgical History Date Name Laterality Status Provider Name and Address Organization Details Recorded Time 11/15/19 25 TENOSYNOVECTOMY (SURG) completed SUSAN RYDER [facility] 11/21/2024 15:20:08 04/27/20 24 Sports Shoulder 4&1 completed Paulette Ely PA-C [address], [place], [address], [facility] 04/27/2024 12:58:45 Imaging Results Imaging Date Name Status LastModified by Organiz ation Details LastModified Time 04/17/2024 XR, shoulder, 2 or more view completed INTERFACE [facility] [address], [place], [address], 04/17/2024 08:34:40 04/17/2024 XR, shoulder, 2 or more view completed INTERFACE [facility] [address], [place], [address], 04/17/2024 08:34:42 08/10/2021 imaging/diag nostic result completed [email or web address] Information not available 06/09/2024 01:56:57 06/26/2024 XR, hip + pelvis, unilateral, 2 or 3 view completed INTERFACE [facility] [address], [place], [address], 06/26/2024 13:15:54 06/26/2024 XR, hip + pelvis, unilateral, 2 or 3 view completed INTERFACE [facility] [address], [place], [address], 06/26/2024 13:15:56 10/25/2024 XR, hip + pelvis, unilateral, 2 or 3 view completed INTERFACE [facility] [address], [place], [address], 10/25/2024 14:19:20 10/25/2024 XR, hip + pelvis, unilateral, 2 or 3 view completed INTERFACE [facility] [address], [place], [address], 10/25/2024 14:19:22 Procedure Notes None recorded. Medical [...] Available oxycodone HCl-oxycodo ne-ASA RX GIVEN AT [facility], AT TIME OF SURGERY 04/17 completed Statu s: 'Curr ent'; Not Available Not Available Not Available Vitals Date Recorded Body height Body mass index (BMI) Body weight Provider Name and Address Organization Details Last Updated DateTime 04/27/2024 172.72 cm 24.3 kg/m2 69626.78 g WALT CASTLE [facility] 04/27/2024 11:00:43 Date Recorded Body height Body mass index (BMI) Body weight Provider Name and Address Organization Details Last Updated DateTime 06/26/2024 172.72 cm 24.3 kg/m2 36579.78 g [facility] 06/26/2024 13:08:27 Date Recorded Body height Body mass index (BMI) Body weight Provider Name and Address Organization Details Last Updated DateTime 10/25/2024 172.72 cm 24.3 kg/m2 50467.78 g [facility] 10/25/2024 14:07:34 Date Recorded Body height Body mass index (BMI) Body weight Provider Name and Address Organization Details Last Updated DateTime 11/02/2024 172.72 cm 24.3 kg/m2 12816.78 g RAYMOND DEJESUS [facility] 11/02/2024 13:01:41 Date Recorded Body height Body mass index (BMI) Body weight Provider Name and Address Organization Details Last Updated DateTime 11/28/2024 172.72 cm 25.1 kg/m2 92488.74 g NELSON ROJO [facility] 11/28/2024 15:35:38 Social History None recorded. Functional Status None recorded. Mental Status None recorded. Family History Nothing Reported. Medical History No medical history recorded. Past Encounters Encounter ID Performer Location Encounter Start Date Encounter Closed Date Diagnosis/Indication Diagnosis SNOMED-CT Code Diagnosis ICD10 Code Diagnosis Note [id number] PARESH Prec[address] 2[address] [place] [address] 04/17/2024 08:04:48 05/07/2024 09:36:44 Pain of left shoulder joint 1442808465 3261665 M25.512 Osteoarthr itis of joint of left shoulder region 3010235503 44688 M19.616 [id number] Paulette Wolak, PA-C [facility] [address] [place] [address] 04/27/2024 10:15:19 05/16/2024 13:21:50 Osteoarthritis of joint of left shoulder region 3334451154 07015 M19.663 [id number] Paulette Ely PA-C [address] [place] [address] 06/26/2024 12:32:38 07/18/2024 08:59:43 History of total replacement of left hip joint 3069132352 646593 Z96.491 [id number] Paulette Ely PA-C [facility] - [address] [place] [address] 10/25/2024 13:34:13 11/06/2024 10:28:07 History of repair of hip joint 149019395 Z96.642 Trochanter ic bursitis of left hip 6069987273 80037 M70.62 [id number] Jazmine alves MD [facility] - [facility] [address] [place] [address] 11/02/2024 12:46:54 11/21/2024 07:39:09 Triggering of digit 064345282 M65.313 [id number] Isai Leung PA-C [facility] - [facility] [place] [address] 11/28/2024 15:23:28 12/14/2024 09:16:28 Triggering of digit 276079478 M65.342 Health Concerns Section Related Observation LastModified by Organization Detai ls LastModified Time None Recorded Concern Status LastModified by Organization Details LastModified Time None Recorded Advance Directives Directive None Recorded Payers Encounter Date Sequence Insurance Name Policy Number Policy Worley Covered Member ID Worley Member ID Guarantor Name 04/27/2024 1 [facility] (MEDICARE REPLACEMENT HMO) [id number] Vernon Reilly Jr [id number] Vernon Reilly 06/26/2024 1 [facility] O [place]UE (MEDICARE REPLACEMENT HMO) [id number] Vernon Reilly Jr [id number] Vernon Casillask 10/25/2024 1 [place]MEDICARE [place]PLACEMENT HMO) [id number] Vernon Reilly Jr [id number] Vernon Reilly 11/02/2024 1 [place]MEDIC[place]AC[place] HMO) [id number] Vernon Reilly Jr [id number] Vernon Casillask 11/28/2024 1 [place]MEDIC[place]PLACEMENT HMO) [id number] Vernon Reilly Jr [id number] Vernon Reilly Notes Date Note Type Note Provider Name and Address Organization Details Recorded Time 04/27/2024 text/html I am seeing the patient [...] up after he attended a concert at [facility]. On the ride home he noticed a [...] and lucid. Normal insight, affect and grooming. UNIVERSITY DEAN: Gross motor coordination is intact. No spasticity [...] extremities. X-rays ordered, obtained and reviewed at [facility] Previously include 4 views of the [...] needed. All questions answered. Paulette Ely PA-C [address] [place] [address] [address], [place], [address], [facility] [place] [facility] 04/27/2024 13:01:31 06/26/2024 text/html I am seeing [...] and lucid. Normal insight, affect and grooming. UNIVERSITY DEAN: Gross motor coordination is intact. No spasticity [...] compressible. X-rays ordered, obtained and reviewed at [facility] today include an AP pelvis and [...] All questions answered. Paulette Ely PA-C [address] [facility] [address], [place], [address], [facility] [place] 06/27/2024 10:41:04 10/25/2024 text/html I am seeing [...] and lucid. Normal insight, affect and grooming. UNIVERSITY DEAN: Gross motor coordination is intact. No spasticity [...] compressible. X-rays ordered, obtained and reviewed at [facility] today include an AP pelvis and [...] All questions answered. Paulette Ely PA-C [address] [address], [place], [address], [facility] 10/25/2024 14:48:24 11/02/2024 text/html 74-year-old male seen [...] with the procedure. Jazmine Miller MD [address] [facility] [address], [place], [address], [facility] 11/02/2024 13:38:38 11/28/2024 text/html I am seeing the patient today under the supervision of Dr. Wadsworth who was available but who did not see the patient. Surgeon: Dr. MillerProcedur e: Left ring finger tenolysisDate of procedure: November 15, 2024 HPI: 74-year-old male returns today for follow-up evaluation status post left ring finger tenolysis on November 15, 2024. He denies any pain. Denies any fevers chills or drainage. Isai Leung PA-C [address] [facility] [address], [place], [address], [facility] [place] [facility] 11/28/2024 16:17:58
--- OUTSIDE RECORDS SUMMARY | 2024-12-17 11:06 | XMS_ITS | Patient Health Record ---
Author Organization [facility] Address [address] [place] [address] Care Team Providers Care Operations And Maintenance Supervisor Name Role Phone Kathy Levi MD Primary Care Provider Nani Grewal Unavailable [phone] Allergies No Known Allergies Reason For Referral [...] Coverage Start Date Coverage End Date [facility] [address] [place] [address] [id number] Vernon Reilly Self - patient is the insured Medical (General) History Medical History History ICD Code Broken bones High blood pressure Measles Mumps Chicken pox Surgical History Surgery Date(Month/Year) back surgery 2003/2007/2014 knee replacement 2010 elbow sx 2017 Cervical 2006 Shoulder 2014
== END 2024-12-17 11:01 | disposition home or self-care (01) ==
PROVIDERS: PCP Nurse Practitioner Family; Visit Provider Physician Assistant
DX: M54.41 Lumbago with sciatica, right side (principal)

== ENCOUNTER → 2024-12-17 10:01 | Outpatient (BNVA) | payer MEDICARE, SELFPAY | PROVIDERS: PCP Nurse Practitioner Family | DX: M54.41 Lumbago with sciatica, right side (principal) | CPT/HCPCS: 99212 ==

== ENCOUNTER 2025-01-10 10:52 | Outpatient (REF) | payer MEDICARE, SELFPAY ==
--- OUTSIDE RECORDS SUMMARY | 2025-01-10 12:07 | XMS_ITS | Patient Health Record ---
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
[2025-01-10 14:11] LABS: Prostate Specific Antigen Scr 0.49 ng/mL (<0.05-4.0)
== END 2025-01-10 10:53 | disposition home or self-care (01) ==
LOC: HO.HMGCLDS 10:52
PROVIDERS: PCP Nurse Practitioner Family; Visit Provider Nurse Practitioner Family
DX: Z12.5 Encounter for screening for malignant neoplasm of prostate (principal)
CPT/HCPCS: 36415; 84153

== ENCOUNTER → 2025-02-02 08:10 | Outpatient (BNV) | payer MEDICARE, SELFPAY | PROVIDERS: PCP Nurse Practitioner Family; Visit Provider Radiology Diagnostic Radiology | DX: M48.061 Spinal stenosis, lumbar region without neurogenic claudication (principal) | CPT/HCPCS: 72148 ==

== ENCOUNTER 2025-02-02 08:11 | Outpatient (REF) | payer MEDICARE, SELFPAY | END 2025-02-02 08:12 | disposition home or self-care (01) | LOC: HO.MRI 08:11 | PROVIDERS: PCP Nurse Practitioner Family; Visit Provider Nurse Practitioner Family | DX: M54.50 Low back pain, unspecified (principal); G89.29 Other chronic pain; Z98.890 Other specified postprocedural states | CPT/HCPCS: 72148 ==

== ENCOUNTER 2025-04-30 09:35 | Outpatient (AMB) | payer MEDICARE, SELFPAY ==
[2025-04-30 09:47] VITALS: BP 106/60; PULSE 70; TEMP 36.7; O2SAT 95; BMI 25.1
--- NOTE | 2025-04-30 09:47 | MHC.OFFWIV ---
Intake Vital Signs 04/30/25 09:47 Height 5 ft 9 in Weight 170 lb BMI 25.1 BP 106/60 Blood Pressure Location Rt brachial Position Sitting Pulse 70 Pulse Source Pulse Oximeter Temp 98.0 F Temp Source Oral Pulse Oximetry (%) 95 Oxygen Delivery Method Room Air Intake Visit Reasons: EP-cold symptoms Intake Note: presents wtih sore threat, pain with swallowing chest congestion with non productive cough for 4 days Patient Tobacco Use Status: Former Tobacco user Allergies No Known Allergies (No Known Allergies*) Allergy (Verified 04/30/25 09:50) Do you need a note to return to daycare/school/sports/work: No HPI HPI Comments History of Present Illness Details History - The patient is a 74-year-old male presenting with upper respiratory infection symptoms. - Symptoms started last Tuesday with a sore throat, followed by congestion and cough. - Denies fever, chills, ear pain, and sinus congestion with green discharge. - No known exposure to flu or COVID-19, and no prior testing done. - Self-medicating with daytime cold medicine and Robitussin. - Non-smoker for the past 8 years, able to eat and drink without difficulty. - She denies CP, SOB, abd pain, n/v/d. Physical Exam General: Cooperative, healthy appearing, comfortable and no acute distress Ears: Hearing grossly normal bilaterally, external ears normal and TM's normal bilaterally Nose: Normal external nose present, normal nares present, and no nasal discharge present. Face and sinus: Sinuses nontender to palpation. Mouth: Normal oral and palatal mucosa present and moist mucous membranes noted. Throat: Tonsils normal. Uvula is midline. Posterior oropharynx with erythema and no exudates. Eyes: Appearance normal, both eyes and all related structures Neck: Normal visual inspection, full ROM. No lymphadenopathy noted. Respiratory: Clear to auscultation bilaterally. Normal respiratory effort, able to speak in complete sentences. No respiratory distress, not tachypneic, no tripod positioning and no use of accessory muscles. Cardiovascular: Regular rate and rhythm. Normal S1 and S2 Skin: No rashes or lesions noted Patient was informed and verbally consented to the use of an ambient scribe for clinic note documentation during this visit REPLACED BY [facility] Medical History (Updated 02/28/25 @ 08:08 by Cornel Dorsey, DIRECTOR OF CONTRACTS-) Osteoarthritis of left shoulder Hip bursitis, left Barretts esophagus Surgical History (Updated 01/10/25 @ 13:27 by Cornel Dorsey, [facility]) History of hip surgery History of elbow surgery History of shoulder surgery History of knee surgery History of cervical spinal surgery Previous back surgery Family History Paternal Grandfather Substance use disorder Social History Housing: House Alcohol intake: current Alcohol intake frequency: 0-2 drinks per day Alcohol type: beer and hard liquor Patient Tobacco Use Status: Former Tobacco user Tobacco use type: Cigarette e-Cigarette/Vaping Use: Never Used Second Hand Smoke Exposure: No service: No Current occupational status: retired Cognitive needs: No Hearing needs: No Vision needs: Yes Review of Systems Const All systems reviewed & are unremarkable except as noted in HPI and below Physical Exam Vital Signs: Last Vital Signs Temp 98.0 F 04/30/25 09:47 Pulse 70 04/30/25 09:47 BP 106/60 04/30/25 09:47 Pulse Ox 95 04/30/25 09:47 Oxygen Delivery Method Room Air 04/30/25 09:47 BMI result Body Mass Index 25.1 Assessment & Plan Assessment & Plan (1) URI (upper respiratory infection): Code(s): J06.9 - Acute upper respiratory infection, unspecified Qualifiers: URI type: unspecified viral URI Qualified Code(s): J06.9 - Acute upper respiratory infection, unspecified Plan Most likely URI vs strep vs covid vs flu vs RSV Plan - Conducted a panel test for COVID-19, RSV, and influenza. - Advised to continue using okvk-frs-qjmdgef medications such as decongestants, Tylenol, and Motrin for symptom relief. - Strep throat test was negative. - Plan to call the patient with the results of the panel test. - VSS, pt well appearing Orders: Orders SARS-CoV2/FLU/RSV Today R09.89 - Other specified symptoms and signs involving the circulatory and respiratory systems Coding Level of Care Code Est Pt Level 3 (98921) Diagnoses Viral upper respiratory tract infection J06.9 URI type: unspecified viral URI
--- OUTSIDE RECORDS SUMMARY | 2025-04-30 10:13 | XMS_ITS | Data Portability ---
Author Organization [facility], [facility] Address [address] [place] [address] Care Team Providers Care Pecan Cleaner Name Role Phone STACY MYERS Primary Care [...] satisfaction; surgery to be scheduled with my national secretary. Not available 11/02/2024 13:38:25 11/28/2024 11/28/2024 74-year-old male returns today for follow-up evaluation status post left ring finger tenolysis on November 15, 2024 Who is overall doing well. Sutures removed Steri-Strips reapplied. Is provided a home exercise program for digital range of motion. Provided putty for training manager strength. Educated in scar massage. He may follow-up symptomatically going forward. [email or web address] Not available 11/28/2024 12:26:07 Plan of Treatment Reminders Order Date Submit Date Provider Last Modified By Organization Details Last Modified Time Details Appointments None recorded. Lab None recorded. Referral None recorded. Procedures None recorded. Surgeries tenosynovec kai (SURG) 2024 025 [email or web address] 0 [facility], [address], [place], [address], 5 09:02:53 Imaging XR, hip + pelvis, unilateral, 2 or 3 view - rm 2. 2V left hip pain. S/P LTHR 2020 AB 2024 025 [facility] Office, [address], [address], [place], [address], 5 13:13:41 XR, hip + pelvis, unilateral, 2 or 3 view - room 211 lt hip 2v cw 2024 025 [email or web address] [facility], [address], [address], [place], [address], 5 10:28:07 Medication Orders meloxicam 15 mg tablet 2024 025 [id number], [address] [facility] [address] [place], [place], [id number], 5 14:17:22 Patient TargetsNo targets recorded. Patient Instructions Encounter Date Encounter Id Patient Instructions Last Modified By Organization Details Last Modified Time 10/25/[id number] hip bursitis: exercises Not available 10/25/2024 14:44:17 [...] a4ajBk vP9nXo QUaueC m3YtLR FvZlgJ JJ8mAn HZtai3 [id number] AC0Kqb 3iBV6G lKiQtr MwF INTERFACE [facility] [address] [facility] [address] [facility] [address], [place], [address], 10/25/2024 14:19:20 10/25/19 25 10/25/2024 XR, hip + pelvi s, unila teral , 2 or 3 view http:/ [email or web address] ?Encry pted=s hAaTro YD8dLq bEUv6g %2BXZw aYqtaq 0bqfl% 2Fg9IQ a4ajBk vP9nXo QUaueC m3YtLR FvZl JHu [facility] HZtai3 8x0512 AC0Kqb 3iBV6G lKiQtr MwF INTERFACE [facility] [address] [facility] [address] [facility] [address], [place], [address], 10/25/2024 14:19:22 01/09/20 25 01/07/2025 XR, hip + pelvi s, unila teral , 2 or 3 view http:/ [email or web address] ?Encry pted=s hAaTro YD8dLq bEUv6g %2BXZw aYqtaq 0bqfl% 2Fg9IQ a4ajBk vP9nXo QUaueC m3YtLR FvZlg JJ8[place]inton HZtai3 7g3762 AC0KqY nSGWKK gKiQtr MwF INTERFACE [facility] [address] [facility] [address] [place], [address], 01/08/2025 07:11:14 01/09/20 25 01/07/2025 XR, hip + pelvi s, unila teral , 2 or 3 view http:/ [email or web address] ?Encry pted=s hAaTro YD8dLq bEUv6g %2BXZw aYqtaq 0bqfl% 2Fg9IQ a4ajBk vP9nXo QUaueC m3YtLR FvZlgJ JJ8mAn HZtai3 8o1668 AC0KqY nSGWKK gKiQtr MwF INTERFACE [facility] [address] [facility] [address], [place], [address], 01/08/2025 07:11:16 Result Notes Documentation Provider Name and Address Organization Details Recorded Time Xr, Hip + Pelvis, Unilateral, 2 Or 3 View : [email or web address] Encrypted=ayYqFyuOR4fLgsP Uv6g%0EEZzrNfljv3yzlp%2Fg 4UHz9qyOvdR1aHoGMyhiDd1Ee GSKeLwzNDR4mLpRAbps96f212 2YF1Oex3pXS0KpGlRkvZrO Not Available [facility] 10/25/2024 14:19: 21 Xr, Hip + Pelvis, Unilateral, 2 Or 3 View : [email or web address] Encrypted=hzKsNvvPU9tWorG Uv6g%1QBAjvJxmsi8qixb%2Fg 5MNk8adEctP2iXtIFzstUf9Po NFJhIriOMY4lEeZQkog21w788 8SZ5Tdq3pZY4QkVdBcaXzR Not Available [facility] 10/25/2024 14:19: 23 Xr, Hip + Pelvis, Unilateral, 2 Or 3 View : [email or web address] Encrypted=ubBhKiwVP0fMurW Uv6g%6HVKgcYlifo0xnkg%2Fg 2LXl6gcUqoZ2vCrYHikqQp9Jx LHUnHafQDC0eZnIBdwo76h303 6GD2NePaNVIJYgNhMsyZjU Not Available [facility] 01/08/2025 07:11: 15 Xr, Hip + Pelvis, Unilateral, 2 Or 3 View : [email or web address] Encrypted=lyOlHxhXY4mYstI Uv6g%6LUJvzUntlc2kanx%2Fg 3JGm6bdEjdV3kObGAnxmFo3Ky WJVwOluWUF7sDlLZsdx32h449 7SZ7GbBnLXMZAxEzZnpEsG Not Available [facility] 01/08/2025 07:11: 17 Problems Name Problem SNOMED Code Status Onset Date Resolution Date Notes Provider Name and Address Organization Details Recorded Time Bursitis of olecranon of left elbow 320835328109 101 Active 2016 Problem Code: M70.22; Problem Code Type: ICD-10; Status: 'A'; Not Available [facility] 4 11:27:47 Pain of left shoulder joint 425418262315 73350 Active 2023 [facility] 4 08:25:18 Triggerin g of digit 565582664 Active 2024 Isai Leung PA-C [address], [place], [address] , [facility] 5 12:23:46 Osteoarth ritis of joint of left shoulder region 565893729443 108 Active 2024 Paulette Ely PA-C [address], [place], [address] , [facility] 5 16:21:41 Problem Notes None recorded. Procedures Surgical History Date Name Laterality Status Provider Name and Address Organization Details Recorded Time 02/28/20 25 Sports Shoulder 4&1 completed Paulette Ely PA-C [address], [place], [address], [facility] 02/27/2025 16:22:27 11/15/19 25 TENOSYNOVECTOMY (SURG) completed SUSAN RYDER [facility] 11/21/2024 15:20:08 04/27/20 24 Sports Shoulder 4&1 completed Paulette Ely PA-C [address], [place], [address], [facility] 04/27/2024 12:58:45 Imaging Results None recorded. Procedure [...] 1 TABLET BY MOUTH DAILY WITH MEALS 02/27 completed Not Available Not Available Not Available prednisone 20 mg tablet TAKE 2 TABLETS BY MOUTH DAILY 02/27 completed Not Available Not Available Not Available peg-electro lyte solution 420 gram oral [...] Available oxycodone HCl-oxycodo ne-ASA RX GIVEN AT [facility], AT TIME OF SURGERY 04/17 completed Statu s: 'Curr ent'; Not Available Not Available Not Available Vitals Date Recorded Body height Body mass index (BMI) Body weight Provider Name and Address Organization Details Last Updated DateTime 10/25/2024 172.72 cm 24.3 kg/m2 20638.78 g peter mendez [place] - [facility] 10/25/2024 14:07:34 Date Recorded Body height Body mass index (BMI) Body weight Provider Name and Address Organization Details Last Updated DateTime 11/02/2024 172.72 cm 24.3 kg/m2 96136.78 g RAYMOND DEJESUS [facility] 11/02/2024 13:01:41 Date Recorded Body height Body mass index (BMI) Body weight Provider Name and Address Organization Details Last Updated DateTime 11/28/2024 172.72 cm 25.1 kg/m2 87844.74 g NELSON ROJO [facility] 11/28/2024 15:35:38 Date Recorded Body height Body mass index (BMI) Body weight Provider Name and Address Organization Details Last Updated DateTime 01/07/2025 172.72 cm 25.8 kg/m2 63549.7 g ERIK OSEI [facility] 01/07/2025 09:09:34 Date Recorded Body height Body mass index (BMI) Body weight Provider Name and Address Organization Details Last Updated DateTime 02/27/2025 172.72 cm 25.8 kg/m2 94401.7 g peter mendez [facility] 02/27/2025 14:16:47 Social History None recorded. Functional Status None recorded. Mental Status None recorded. Family History Nothing Reported. Medical History No medical history recorded. Past Encounters Encounter ID Performer Location Encounter Start Date Encounter Closed Date Diagnosis/Indication Diagnosis SNOMED-CT Code Diagnosis ICD10 Code Diagnosis Note [id number] Paulette Ely PA-C [facility] [address] [place] [address] 04/17/2024 08:04:48 05/07/2024 09:36:44 Pain of left shoulder joint 2685099648 9116014 M25.512 Osteoarthr itis of joint of left shoulder region 0827161761 70708 M19.314 [id number] Paulette Ely PA-C [facility] [address] [place] [address] 04/27/2024 10:15:19 05/16/2024 13:21:50 Osteoarthritis of joint of left shoulder region 7116342356 28306 M19.662 [id number] Paulette Ely PA-C [facility] [address] [place] [address] 06/26/2024 12:32:38 07/18/2024 08:59:43 History of total replacement of left hip joint 8052163551 823247 Z96.267 [id number] PARESH Preciado [facility] [address] [place] [address] 10/25/2024 13:34:13 11/06/2024 10:28:07 History of repair of hip joint 082805835 Z96.642 Trochanter ic bursitis of left hip 9577101547 34969 M70.62 [id number] MD HARSH Hawk [facility] [address] [place] [place] [address] 11/02/2024 12:46:54 11/21/2024 07:39:09 Triggering of digit 152887554 M65.892 [id number] PARESH Wu [address] [place] [place] [address] 11/28/2024 15:23:28 12/14/2024 09:16:28 Triggering of digit 671303664 M65.879 [id number] PARESH [facility] [address] [place] [address] 01/07/2025 08:57:47 01/17/2025 13:13:41 Pain of hip region 63860397 M25.729 [id number] PARESH Preciado [address] [place] [address] 02/27/2025 13:15:53 03/08/2025 12:42:19 Osteoarthritis of joint of left shoulder region 6020685527 24499 M19.012 Health Concerns Section Related Observation LastModified by Organization Detai ls LastModified Time None Recorded Concern Status LastModified by Organization Details LastModified Time None Recorded Advance Directives Directive None Recorded Payers Insurance Date Sequence Insurance Name Policy Number Policy Worley Covered Member ID Worley Member ID Guarantor Name 03/08/2025 1 [place] (MEDICARE REPLACEMENT HMO) [id number] Vernon Reilly [id number] Vernon Reilly Notes Date Note Type [...] and lucid. Normal insight, affect and grooming. TAPROOM ATTENDANT: Gross motor coordination is intact. No spasticity or clonus noted. EXAMINATION: The patient is well appearing and in no apparent distress. Alert and oriented x3. Gait is symmetric. Left hip reveals a surgical scar, otherwise no obvious deformity upon inspection. No edema, erythema, ecchymosis, or lesions. Neurovascularly intact. Mild tenderness over the greater trochanter. ROM is pain-free. Negative straight leg raise. No instability. 5/5 strength. Calf/leg compartments soft and compressible. X-rays ordered, obtained and reviewed at [facility] today include an AP pelvis and lateral [...] All questions answered. Paulette Ely PA-C [address], [place], [address], [facility] 10/25/2024 14:48:24 11/02/2024 text/html 74-year-old male [...] with the procedure. Jazmine Miller MD [address] [facility] [address] [address], [place], [address], [facility] 11/02/2024 13:38:38 11/28/2024 text/html I am seeing the patient today under the supervision of Dr. Wadsworth who was available but who did not see the patient. Surgeon: Dr. MillerProandrewur e: Left ring finger tenolysisDate of procedure: November 15, 2024 HPI: 74-year-old male returns today for follow-up evaluation status post left ring finger tenolysis on November 15, 2024. He denies any pain. Denies any fevers chills or drainage. Isai Leung PA-C [address] [facility] [address], [place], [address], [facility] 11/28/2024 16:17:58 01/07/2025 text/html I am seeing the patient today under the supervision of [Dr. Gutierres who was available but who did not see the patient.History: This gentleman presents today for for a new problem of left hip pain. He is 4 years status post left total hip arthroplasty done by Dr. Ortiz. gets occasional sharp pain with lateral aspect of the left hip causes his left hip to somewhat buckle on occasion. His main complaint today is that of right-sided sciatica. Has had this in the past and said surgery 2 of his lumbar spine. Last one by Dr. Rosenberg. Was recently on steroids which gave him roughly 1 week of benefit.PMH/PSH/MEDS /ALL/FMH/SOC HX/ROS are reviewed in detail per my medical intake sheet.General Exam: Vital signs are as noted belowMental status: Alert and lucid. Normal insight, affect and grooming.TAPROOM ATTENDANT: Gross motor coordination is intact. No spasticity or clonus noted.Extremities:Ca lves are soft non tender, skin intact.Orthopedic Examination:Patient has a positive straight-leg raise on the right sideRight Hip: tenderness. Sciatic notch. Mild irritable range of motion of the right hip.Left Hip: mild tenderness over the greater trochanter. No other palpable tenderness. Full range of motion passively and actively without irritability.Full strength and sensation distally.X-rays: Radiographs 2 views left hip were obtained and reviewed today in the office show excellent clinical interfaces and alignment.Assessment :left hip occasional trochanteric bursitis a symptomatically with right-sided sciaticaPLAN: in regards to left hip nothing worrisome at this point. Recommended physical therapy symptoms persist or worsen. regards to the right hip I recommended follow-up with Dr. Rosenberg given his failure of conservative treatment and symptoms radiating into the right lower extremity.sendwithus speech recognition chefs software was used to create portions of this document. An attempt at proofreading has been made to minimize errors. Please call for corrections. Warren Wild PA-C [address] [place] [address] [address] [facility], [place], [address], [facility] 01/07/2025 12:39:10 02/27/2025 text/html I am seeing the patient today under the supervision of Dr. Gutierres who was available but who did not see the patient. HPI: Vernon presents to the office today for a recheck of his left shoulder. He has a history of a left shoulder arthroscopy performed by Dr. Nelson back in 2013. He received an intra-articular left shoulder cortisone injection by myself in April 2020 for which provided him with relief up until recently. He complains of generalized shoulder discomfort which is increased with active reaching and lifting. No neurovascular changes. He is requesting a repeat cortisone injection today. PMH/PSH/MEDS/ALL/FMH /SOC HX/ROS are reviewed in detail per my medical intake sheet. General Exam: Vital signs are as noted below Mental status: Alert and lucid. Normal insight, affect and grooming. TAPROOM ATTENDANT: Gross motor coordination is intact. No spasticity or clonus noted. EXAMINATION: The patient is well appearing and in no apparent distress. Alert and oriented x3. Gait is symmetric. Left shoulder reveals no obvious deformity upon inspection. [...] extremities. X-rays ordered, obtained and reviewed at [facility] previously include 4 views of the left shoulder. [...] in receiving an injection with corticosteroid. The left shoulder was prepped sterilely and an intra-articular injection was administered utilizing 40mg of Kenalog and 4cc of 0.25% Marcaine. The patient tolerated the procedure well. Post-injection precautions were discussed. He has no interest in surgical intervention for his shoulder. He may repeat an injection in 3 months if needed. All questions answered Paulette Ely PA-C [address] [facility] [address], [place], [address], [facility] 02/27/2025 16:23:53
--- OUTSIDE RECORDS SUMMARY | 2025-04-30 10:13 | XMS_ITS | Patient Health Record ---
Author Organization [facility] Address [address] [place] [address] Care Team Providers Care Private Wealth Advisor Name Role Phone Kathy Levi MD Primary Care Provider Nani Grewal Unavailable [phone] Allergies No Known Allergies Reason For Referral No Information Medications Medication SIG (Take, Route, Frequency, Duration) Notes Start Date End Date Status Equate - as directed Orally A ctive Lisinopril 20 MG 1 tablet Orally Once a day; Duration: 30 day(s) Active amLODIPine Besylate 5 MG 1 tablet Orally Once a day; Duration: 30 day(s) Active Immunizations Vaccine Route Administration [...] Insured Coverage Start Date Coverage End Date [facility] [address] [place] [address] [phone] [id number] Vernon Reilly Self - patient is the insured Medical (General) History Medical History History ICD Code Broken bones High blood pressure Measles Mumps Chicken pox Surgical History Surgery Date(Month/Year) back surgery /2014 knee replacement 2010 elbow sx 2017 Cervical 2006 Shoulder 2014
== END 2025-04-30 10:55 | disposition home or self-care (01) ==
PROVIDERS: PCP Nurse Practitioner Family; Visit Provider Physician Assistant Medical
DX: Z13.9 Encounter for screening, unspecified (principal); J06.9 Acute upper respiratory infection, unspecified

== ENCOUNTER 2025-04-30 09:35 | Outpatient (REF) | payer MEDICARE, SELFPAY ==
[2025-04-30 14:49] LABS: Resp Syncy Virus RNA Qual PCR NEGATIVE (Negative); SARS COV2 PCR INHOUSE NEGATIVE (Negative)
== END 2025-04-30 09:36 | disposition home or self-care (01) ==
LOC: HO.LNP 09:35
PROVIDERS: PCP Nurse Practitioner Family; Visit Provider Physician Assistant Medical
DX: R09.89 Other specified symptoms and signs involving the circulatory and respiratory systems (principal); R05.9 Cough, unspecified; Z13.9 Encounter for screening, unspecified; Z79.899 Other long term (current) drug therapy; Z87.891 Personal history of nicotine dependence
CPT/HCPCS: 87637; 87880; 99212

== ENCOUNTER 2025-07-23 09:28 | Outpatient (AMB) | payer MEDICARE, SELFPAY ==
[2025-07-23 09:39] VITALS: BP 124/74; PULSE 87; RESP 16; O2SAT 97; BMI 25.5
--- NOTE | 2025-07-23 09:39 | A.OFFPC_ITS ---
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 Accompanied by: Self / Same As Patient Allergies No Known Allergies (No Known Allergies*) Allergy (Verified 07/23/25 10:27) Medication List - Last Reconciled 07/23/25 by BAIRON GravesP- amlodipine 10 mg PO DAILY 90 days atorvastatin 20 mg PO BEDTIME 90 days lisinopril-hydrochlorothiazide 20-12.5 mg 1 tab PO DAILY 90 days multivitamin (Daily Multi-Vitamin tablet) 1 tab PO DAILY omeprazole 20 mg PO BID 90 days Tobacco use date assessed: 07/23/25 Fall risk assessment: No Falls in past year Last assessed Fall Risk: 07/23/25 Dental Screening Dental Screen Date: 07/23/25 Did you have a dental visit in the last 12 months?: Yes Did you have a dental problem in the last 6 months where you did not have access to dental care?: No HPI PE HPI Details Chief Complaint Request for evaluation of home blood pressure readings. History of Present Illness The patient is a 74-year-old male presenting with a request for home blood pressure monitoring evaluation. His blood pressure readings have been stable when measured at home. He reports no associated symptoms like chest pain, shortness of breath, dizziness, or headache. He quit smoking in 2017 and does not exhibit any edema. Historically, he denies using tobacco since cessation. There are no reports of current or exacerbated symptoms related to his hypertension, indicating stable management of his condition. Social History - Tobacco: Prior smoker, quit in 2017 - Denies current tobacco use - Health Maintenance - Denies interest in low-dose CT scan fo r lung cancer screening -colonoscopy up to date Review of Systems - Cardiovascular: Denies chest pain - Respiratory: Denies shortness of breat h - Neurological: Denies dizziness, headac he - Ophthalmologic: Denies vision changes -GI: denies any urinary issues Physical Exam General: Cooperative, healthy appearing, comfortable, no acute distress and well developed Orientation: Patient oriented x3 Limitations: No limitations Head: Normal to inspection Ears: Hearing grossly normal bilaterally Nose: Normal external nose present Face and sinus: Normal facial exam Eyes: Appearance normal, both eyes and all related structures Neck: Normal visual inspection and Yes full ROM Respiratory: Normal respiratory effort and able to speak in complete sentences. Clear to auscultation bilaterally Cardiovascular: Regular rate and rhythm. Normal S1 and S2 GI: Normal to inspection. Soft to palpation and nontender Skin: No rashes or lesions noted Neuro: Patient oriented x3 Extremities: Normal to inspection Results Plan - Continue monitoring of blood pressure with home measurements - Reinforce lifestyle modifications cons istent with hypertension management, such as dietary adjustments and stress management - Discussion about low-dose CT scan as a precaution for prior smoking history was declined, no further action needed Discussion Notes I discussed the stability of the patient?s blood pressure readings and confirmed the absence of any acute symptoms. Given the previous smoking history, I proposed a low-dose CT scan for lung cancer screening, but the patient declined. We reviewed the importance of maintaining lifestyle modifications for hypertension management, including dietary adjustments and stress reduction. I reiterated the self-monitoring at home for any changes in symptoms and provided assurance of the current management plan?s effectiveness. Patient Instructions - Continue current blood pressure monito ring at home - Maintain prescribed lifestyle modifica tions, including diet and exercise - Report any new symptoms such as chest pain, vision changes, or shortness of breath promptly - Follow up as scheduled for regular blo od pressure evaluations [facility] Medical History Osteoarthritis of left shoulder Hip bursitis, left Barretts esophagus Surgical History History of lumbar surgery History of hip surgery History of elbow surgery History of shoulder surgery History of knee surgery History of cervical spinal surgery Previous back surgery Family History Paternal Grandfather Substance use disorder Social History Housing: House Alcohol intake: current Alcohol intake frequency: 0-2 drinks per day Alcohol type: beer and hard liquor Patient Tobacco Use Status: Former Tobacco user Tobacco use type: Cigarette e-Cigarette/Vaping Use: Never Used Second Hand Smoke Exposure: No service: No Current occupational status: retired Cognitive needs: No Hearing needs: No Vision needs: Yes Questionnaire PHQ-9 Over the last 2 weeks, how often have you been bothered by any of the following problems? 1. Little interest or pleasure in doing things: not at all 2. Feeling down, depressed, or hopeless: not at all 3. Trouble falling or staying asleep, or sleeping too much: not at all 4. Feeling tired or having little energy: not at all 5. Poor appetite or overeating: not at all 6. Feeling bad about yourself - or that you are a failure or have let yourself or your family down: not at all 7. Trouble concentrating on things, such as reading the newspaper or watching television: not at all 8. Moving or speaking so slowly that other people could have noticed. Or the opposite - being so fidgety or restless that you have been moving around a lot more than usual: not at all 9. Thoughts that you would be better off or of hurting yourself in some way: not at all Total score: 0 Depression Screening Interpretation: Negative Depression Screening Done: Yes 60435 - PHQ-9 Billing: Yes Source: Developed by Drs. Dustin Galarza, June Bellamy, William Lopez and colleagues, with an educational janice from [employer]. Thrive Questionnaire Date Thrive assessed: 11/09/24 I am a: Patient What is your living situation today?: I have a steady place to live Within the past 12 months, did the food you bought not last and you didn't have the money to get more?: Never true Within the past 12 months, did you worry whether your food would run out before you got money to buy more?: Never true Do you have trouble paying for medicines?: No Do you have trouble getting transportation to medical appointments?: No Do you have trouble paying your heating and electricity bill?: No Do you have trouble taking care of your child, family member or friend?: No Do you have trouble with day-to-day activities such as bathing, preparing meals, shopping, managing finances, etc.?: No Are you currently unemployed and looking for a job?: No Are you interested in more education?: No Please select the resources that you would like help with: None Currently or been in a relationship where the following occur: No concerns reported THRIVE Score: 0 GERDA-7 AMB Questionnaire GERDA-7 Date GERDA - 7 assessed: 07/23/25 Feeling nervous, anxious, or on edge: 0 = Not at all Not being able to stop or control worryin = Not at all Worrying too much about different things: 0 = Not at all Trouble relaxin = Not at all Being so restless that it is hard to sit still: 0 = Not at all Becoming easily annoyed or irritable: 0 = Not at all Feeling afraid as if something awful might happen: 0 = Not at all Total GERDA-7 score (0-4 normal; 5-9 mild; 10-14 moderate; 15-21 severe): 0 Source: Developed by Drs. Dustin Galarza, June Bellamy, William Lopez and colleagues, with an educational janice from [employer]. GERDA-7 Assessment Billing GERDA-7 Assessment Tool: GERDA-7 Assessment 90561 Physical exam (Primary Care) Vital Signs: Last Vital Signs Pulse 87 07/23/25 09:39 Resp 16 07/23/25 09:39 BP 124/74 07/23/25 09:39 Pulse Ox 97 07/23/25 09:39 Oxygen Delivery Method Room Air 07/23/25 09:39 BMI result Body Mass Index 25.5 Tobacco/Smoking Status: Tobacco use Status Tobacco use date assessed 07/23/25 07/23/25 09:41 Patient Tobacco Use Status Former Tobacco user 07/23/25 09:41 Tobacco use type Cigarette 07/23/25 09:41 e-Cigarette/Vaping Use Never Used 07/23/25 09:41 PHQ-9: PHQ-9 Score PHQ-9: Total score 0 07/23/25 09:47 Depression Screening Interpretation: Negative Thrive Assessment: Date of Thrive Assessment Date Thrive assessed 11/09/24 07/23/25 09:41 Currently or been in a relationship where the following occur: No concerns reported Coding Level of Care Code Est Pt Prev Care >65y(46000) Diagnoses Encounter for routine adult physical exam with abnormal findings Z00.01 Screening PSA (prostate specific antigen) Z12.5 Vitamin D deficiency E55.9 Additional Codes GERDA-7 Assessment Billing - GERDA-7 Assessment Tool: GERDA-7 Assessment 90616 ([id number]) PHQ-9 - 78445 - PHQ-9 Billing: Yes ([id number]) Assessment & Plan Assessment & Plan (1) Encounter for routine adult physical exam with abnormal findings: Code(s): Z00.01 - Encounter for general adult medical examination with abnormal findings Category: Medical (2) Screening PSA (prostate specific antigen): Code(s): Z12.5 - Encounter for screening for malignant neoplasm of prostate Category: Medical (3) Vitamin D deficiency: Code(s): E55.9 - Vitamin D deficiency, unspecified Category: Medical Plan . Orders: Orders TSH reflex Free T4 Today Z00.01 - Encounter for general adult medical examination with abnormal findings Lipid Panel Today Z00.01 - Encounter for general adult medical examination with abnormal findings Prostate Specific Antigen Scr Today Z12.5 - Encounter for screening for malignant neoplasm of prostate Vitamin D 25-OH Total Today E55.9 - Vitamin D deficiency, unspecified, Z00.01 - Encounter for general adult medical examination with abnormal findings Complete Blood Count Auto Diff Today Z00.01 - Encounter for general adult medical examination with abnormal findings Comprehensive [place]. Panel Fast Today Z00.01 - Encounter for general adult medical examination with abnormal findings UA CC w/rflx Micro + Cult Today Z00.01 - Encounter for general adult medical examination with abnormal findings
--- OUTSIDE RECORDS SUMMARY | 2025-07-23 10:28 | XMS_ITS | Patient Health Record ---
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
--- OUTSIDE RECORDS SUMMARY | 2025-07-23 10:28 | XMS_ITS | Data Portability ---
Author Organization [facility], [facility] Address [address] [place] [address] Care Team Providers Care Dial Maker Name Role Phone STACY MYERS Primary Care Provider [phone] Assessment Encounter Date Assessment Date Assessment LastModified [...] satisfaction; surgery to be scheduled with my dental secretary. Not available 11/02/2024 13:38:25 11/28/2024 11/28/2024 74-year-old male returns today for follow-up evaluation status post left ring finger tenolysis on November 15, 2024 Who is overall doing well. Sutures removed Steri-Strips reapplied. Is provided a home exercise program for digital range of motion. 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 Educated in scar massage. He may follow-up symptomatically going forward. [email or web address] Not available 11/28/2024 12:26:07 Plan of Treatment Reminders Order Date Submit Date Provider Last Modified By Organization Details Last Modified Time Details Appointments None recorded. Lab None recorded. Referral None recorded. Procedures None recorded. Surgeries tenosynovec kai (SURG) 2024 025 [email or web address] 0 [facility], [address], [place], [address], 5 09:02:53 Imaging XR, hip + pelvis, unilateral, 2 or 3 view - rm 2. 2V left hip pain. S/P LTHR 2020 AB 2024 025 [facility], [address], [address], [place], [address], 5 13:13:41 XR, hip + pelvis, unilateral, 2 or 3 view - room 211 lt hip 2v cw 2024 025 [email or web address] [facility], [address], [place], [address], 5 10:28:07 Medication Orders meloxicam 15 mg tablet 2024 025 [id number], [address] [facility] [place], [id number], 5 14:17:22 Patient TargetsNo targets recorded. Patient Instructions Encounter Date Encounter Id Patient Instructions Last Modified By Organization Details Last Modified Time 10/25/[id number] hip bursitis: exercises Not available 10/25/2024 14:44:17 [...] a4ajBk vP9nXo QUaueC m3YtLR FvZlgJ JJ8mAn HZtai3 2b0506 AC0Kqb 3iBV6G lKiQtr MwF INTERFACE [facility] [address] [facility] [facility] [address], [place], [address], 10/25/2024 14:19:20 10/25/19 25 10/25/2024 XR, hip + pelvi s, unila teral , 2 or 3 view http:/ [email or web address] ?Encry pted=s hAaTro YD8dLq bEUv6g %2BXZw aYqtaq 0bqfl% 2Fg9IQ a4ajBk vP9nXo QUaueC m3YtLR FvZl [facility] HZtai3 8x8419 AC0Kqb 3iBV6G lKiQtr MwF INTERFACE [facility] [address] [facility] [facility] [address], [place], [address], 10/25/2024 14:19:22 01/09/20 25 01/07/2025 XR, hip + pelvi s, unila teral , 2 or 3 view http:/ [email or web address] ?Encry pted=s hAaTro YD8dLq bEUv6g %2BXZw aYqtaq 0bqfl% 2Fg9IQ a4ajBk vP9nXo QUaueC m3YtLR FvZlg JJ8Sumas HZtai3 8l6935 AC0KqY nSGWKK gKiQtr MwF INTERFACE [facility] [address] [facility] [address], [place], [address], 01/08/2025 07:11:14 01/09/20 25 01/07/2025 XR, hip + pelvi s, unila teral , 2 or 3 view http:/ [email or web address] ?Encry pted=s hAaTro YD8dLq bEUv6g %2BXZw aYqtaq 0bqfl% 2Fg9IQ a4ajBk vP9nXo QUaueC m3YtLR FvZlgJ JJ8mAn HZtai3 7g6392 AC0KqY nSGWKK gKiQtr MwF INTERFACE [facility] [address] [facility] [address], [place], [address], 01/08/2025 07:11:16 Result Notes Documentation Provider Name and Address Organization Details Recorded Time Xr, Hip + Pelvis, Unilateral, 2 Or 3 View : [email or web address] Encrypted=ygIgUhsIJ0dSuwZ Uv6g%0AYWblCtylu2xyvu%2Fg 1QXl6ugNiuH5kKjMIwnlWo9Mb YMEvXcjLZG4iMnGLxaq22b790 0KJ0Jyc7iBQ9GnDiPlfFnO Not Available [facility] 10/25/2024 14:19: 21 Xr, Hip + Pelvis, Unilateral, 2 Or 3 View : [email or web address]? Encrypted=nqBjZlkBT8jGbxO Uv6g%3LHTlsYngqp0ntws%2Fg 2IXp2ecKlmX6tRtWMjfgYk5Ys DOXgNtlAUO0dVzOPlru48v344 8WK6Ltk2uQA0SlJjGpeIuV Not Available [facility] 10/25/2024 14:19: 23 Xr, Hip + Pelvis, Unilateral, 2 Or 3 View : [email or web address]? Encrypted=oaIoFdbNG2uKmjV Uv6g%7MCHedPksez8dnwe%2Fg 5OEc8cjAsiF8gGyQDsamSe6Xw RZVfGwdMOS3yGcULwde48y205 8YK2LvRcLCPBAhOcZcgDvY Not Available [facility] 01/08/2025 07:11: 15 Xr, Hip + Pelvis, Unilateral, 2 Or 3 View : [email or web address]? Encrypted=btGqFykRT5dIvdQ Uv6g%7WWZohEawfw3chew%2Fg 1SFp7vaJzkT3pVrSKwwtDf0Sp SMPfPjxKDS7dIiTFbxn34p416 5PG3ThUfIFPMRcIwBlmZcM Not Available [facility] 01/08/2025 07:11: 17 Problems Name Problem SNOMED Code Status Onset Date Resolution Date Notes Provider Name and Address Organization Details Recorded Time Bursitis of olecranon of left elbow 483598638902 101 Active 2016 Problem Code: M70.22; Problem Code Type: ICD-10; Status: 'A'; Not Available [facility] 4 11:27:47 Pain of left shoulder joint 928395577039 50118 Active 2023 [facility] 4 08:25:18 Triggerin g of digit 628898484 Active 2024 Isai Leung PA-C [address], [place], [address] , [facility] 5 12:23:46 Osteoarth ritis of joint of left shoulder region 928437299356 108 Active 2024 Paulette Ely PA-C [address], [place], [address] , [facility] 5 16:21:41 Problem Notes None recorded. Procedures Surgical History Date Name Laterality Status Provider Name and Address Organization Details Recorded Time 02/28/20 25 Sports Shoulder 4&1 completed Paulette Ely PA-C [address], [place], [address], [facility] 02/27/2025 16:22:27 11/15/19 25 TENOSYNOVECTOMY (SURG) completed SUSAN RYDER [facility] 11/21/2024 15:20:08 04/27/20 24 Sports Shoulder 4&1 completed Paulette Ely PA-C [address], [place], [address], [facility] 04/27/2024 12:58:45 Imaging Results None recorded. [...] Available oxycodone HCl-oxycodo ne-ASA RX GIVEN AT [facility], AT TIME OF SURGERY 04/17 completed Statu s: 'Curr ent'; Not Available Not Available Not Available Vitals Date Recorded Body height Body mass index (BMI) Body weight Provider Name and Address Organization Details Last Updated DateTime 10/25/2024 172.72 cm 24.3 kg/m2 92146.78 g peter mendez [place] - [facility] 10/25/2024 14:07:34 Date Recorded Body height Body mass index (BMI) Body weight Provider Name and Address Organization Details Last Updated DateTime 11/02/2024 172.72 cm 24.3 kg/m2 07036.78 g RAYMOND DEJESUS [facility] 11/02/2024 13:01:41 Date Recorded Body height Body mass index (BMI) Body weight Provider Name and Address Organization Details Last Updated DateTime 11/28/2024 172.72 cm 25.1 kg/m2 51440.74 g NELSON ROJO [facility] 11/28/2024 15:35:38 Date Recorded Body height Body mass index (BMI) Body weight Provider Name and Address Organization Details Last Updated DateTime 01/07/2025 172.72 cm 25.8 kg/m2 88264.7 g ERIK OSEI [facility] 01/07/2025 09:09:34 Date Recorded Body height Body mass index (BMI) Body weight Provider Name and Address Organization Details Last Updated DateTime 02/27/2025 172.72 cm 25.8 kg/m2 38653.7 g peter mendez [facility] 02/27/2025 14:16:47 Social History None recorded. Functional Status None recorded. Mental Status None recorded. Family History Nothing Reported. Medical History No medical history recorded. Past Encounters Encounter ID Performer Location Encounter Start Date Encounter Closed Date Diagnosis/Indication Diagnosis SNOMED-CT Code Diagnosis ICD10 Code Diagnosis IMO Codes Diagnosis Note [id number] PARESH Preciado [address] [place] [address] 04/17/2024 08:04:48 05/07/2024 09:36:44 Pain of left shoulder joint 7863433199 8410892 M25.512 Osteoarthr itis of joint of left shoulder region 8697643517 35701 M19.700 [id number] PARESH Preciado [address] [place] [address] 04/27/2024 10:15:19 05/16/2024 13:21:50 Osteoarthritis of joint of left shoulder region 9302193871 31687 M19.523 [id number] PARESH Preciado [address] [place] [address] 06/26/2024 12:32:38 07/18/2024 08:59:43 History of total replacement of left hip joint 4017613836 894993 Z96.788 [id number] PARESH [facility]ado [place] [address] [place] [address] 10/25/2024 13:34:13 11/06/2024 10:28:07 History of repair of hip joint 821040889 Z96.642 [id number] Trochanter ic bursitis of left hip 7714964992 78237 M70.62 [id number] MD HARSH Hawk [address] [place] [place] [address] 11/02/2024 12:46:54 11/21/2024 07:39:09 Triggering of digit 259954675 M65.437 [id number] PARESH Wu [address] [place] [place] [address] 11/28/2024 15:23:28 12/14/2024 09:16:28 Triggering of digit 015833808 M65.137 [id number] PARESH [facility] [address] [place] [address] 01/07/2025 08:57:47 01/17/2025 13:13:41 Pain of hip region 74452598 M25.552 220084 [id number] PARESH Preciado [address] [place] [address] 02/27/2025 13:15:53 03/08/2025 12:42:19 Osteoarthritis of joint of left shoulder region 8297070924 01591 M19.012 Health Concerns Section Related Observation LastModified by Organization Detai ls LastModified Time None Recorded Concern Status LastModified by Organization Details LastModified Time None Recorded Advance Directives Directive None Recorded Payers Insurance Date Sequence Insurance Name Policy Number Policy Worley Covered Member ID Worley Member ID Guarantor Name 03/08/2025 1 [facility]: MEDICARE HMO BLUE (MEDICARE REPLACEMENT HMO) [id number] Vernon Reilly Jr [id number] Vernon Tello Claudetteastridmakayla Notes Date Note Type Note Provider Name [...] and lucid. Normal insight, affect and grooming. CHUTE PULLER: Gross motor coordination is intact. No spasticity [...] compressible. X-rays ordered, obtained and reviewed at [facility] today include an AP pelvis and lateral [...] All questions answered. Paulette Ely PA-C [address], [place], [address], [facility] 10/25/2024 14:48:24 11/02/2024 text/html ROS as noted in the HPI 74-year-old male seen for initial evaluation of [...] with the procedure. Jazmine Miller MD [address], [place], [address], [facility] 11/02/2024 13:38:38 11/28/2024 text/html I am [...] chills or drainage. Isai Leung PA-C [address], [place], [address], [facility] 11/28/2024 16:17:58 01/07/2025 text/html I am [...] Alert and lucid. Normal insight, affect and grooming.CHUTE PULLER: Gross motor coordination is intact. 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 An attempt at proofreading has been made to minimize errors. Please call for corrections. Warren Wild PA-C [address] [place] [address] Suite [facility], [place], [address], [facility] 01/07/2025 12:39:10 02/27/2025 text/html I am seeing [...] and lucid. Normal insight, affect and grooming. CHUTE PULLER: Gross motor coordination is intact. No spasticity [...] extremities. X-rays ordered, obtained and reviewed at [facility] previously include 4 views of the left [...] needed. All questions answered Paulette Ely PA-C [address] [place], [place] [address] [address], [place], [address], [facility] 02/27/2025 16:23:53
== END 2025-07-23 10:24 | disposition home or self-care (01) ==
LOC: HO.HMCC 09:29
PROVIDERS: PCP Nurse Practitioner Family; Visit Provider Nurse Practitioner Family
DX: Z00.01 Encounter for general adult medical examination with abnormal findings (principal); Z12.5 Encounter for screening for malignant neoplasm of prostate; E55.9 Vitamin D deficiency, unspecified

== ENCOUNTER → 2025-07-23 09:28 | Outpatient (BNVA) | payer MEDICARE, SELFPAY | PROVIDERS: PCP Nurse Practitioner Family; Visit Provider Nurse Practitioner Family | DX: Z00.01 Encounter for general adult medical examination with abnormal findings (principal); I10 Essential (primary) hypertension; E55.9 Vitamin D deficiency, unspecified; Z87.891 Personal history of nicotine dependence | CPT/HCPCS: 96127; 99397 ==

== ENCOUNTER 2025-07-30 08:37 | Outpatient (REF) | payer MEDICARE, SELFPAY ==
--- OUTSIDE RECORDS SUMMARY | 2025-07-30 08:57 | XMS_ITS | Patient Health Record ---
Author Organization [facility] Address [address] [place] [address] Care Team Providers Care Band Instrument Repairer Name Role Phone Kathy Levi MD Primary Care Provider Nani Grewal Unavailable [phone] Allergies No Known Allergies Reason For Referral [...] Insured Coverage Start Date Coverage End Date [facility] [address] [place] [address] [phone] [id number] Vernon Reilly Self - patient is the insured Medical (General) History Medical History History ICD Code Broken bones High blood pressure Measles Mumps Chicken pox Surgical History Surgery Date(Month/Year) back surgery /2014 knee replacement 2010 elbow sx 2017 Cervical 2006 Shoulder 2014
[2025-07-30 10:46] LABS: MANUAL DIFF FLAG NO
[2025-07-30 10:52] LABS: Hematocrit 41.6 % (42.0-52.0); Hemoglobin 14.2 g/dl (14.0-18.0); Imm Gran Abs Auto 0.06 X10*3/uL (0.00-0.03); Imm Gran Pct Auto 1.1 % (0.0-0.4); Lymphocytes Absolute Auto 1.6 X10*3/uL (1.2-4.9); Mean Corpuscular HGB Conc 34.1 g/dl (31.0-36.0); Mean Corpuscular Hemoglobin 31.9 pg (27.0-33.0); Mean Corpuscular Volume 93.5 fL (80.0-98.0); NRBC Abs Auto 0.000 X10*3/uL (0.0-0.012); NRBC Pct Auto 0.0 /100WBC (0.0-0.2); Platelet Count 220 X10*3/uL (160-400); Red Blood Count 4.45 X10*6/uL (4.60-5.80); White Blood Count 5.4 X10*3/uL (4.8-10.8)
[2025-07-30 13:10] LABS: Alanine Aminotransferase 34 U/L (0-40); Albumin Level 4.6 g/dL (3.5-5.0); Alkaline Phosphatase 114 U/L (39-117); Anion Gap 11 (12-20); Aspartate Amino Transferase 43 U/L (5-37); Blood Urea Nitrogen 8 mg/dL (9-16); Calcium 8.9 mg/dL (8.4-10.2); Carbon Dioxide 27 mmol/L (22-29); Chloride 104 mmol/L (96-108); Cholesterol 179 mg/dL (<200); Estimated Glomerular Filt Rate > 60; HDL Cholesterol 81 mg/dL (>40); Potassium 4.3 mmol/L (3.3-5.1); Sodium 138 mmol/L (135-145); Total Protein 7.5 g/dL (6.5-8.0); Triglycerides 78 mg/dL (<150)
== END 2025-07-30 08:38 | disposition home or self-care (01) ==
LOC: HO.HMGCLDS 08:37
PROVIDERS: PCP Nurse Practitioner Family; Visit Provider Nurse Practitioner Family
DX: Z00.01 Encounter for general adult medical examination with abnormal findings (principal); Z12.5 Encounter for screening for malignant neoplasm of prostate; E55.9 Vitamin D deficiency, unspecified; Z13.6 Encounter for screening for cardiovascular disorders; Z13.29 Encounter for screening for other suspected endocrine disorder
CPT/HCPCS: 36415; 80053; 80061; 82306; 84153; 84443; 85025

== ENCOUNTER 2025-09-20 09:32 | Outpatient (REF) | payer MEDICARE, SELFPAY ==
--- NOTE | ~2025-09-20 | US_ITS ---
CLINICAL HISTORY: R74.8 - Abnormal levels of other serum enzymes US abdomen complete Comparison: None provided Findings: The visualized pancreas is normal. The aorta and inferior vena cava are normal caliber. The appearance of the liver suggests fatty infiltration. There is no intrahepatic bile duct dilatation. The common duct is 3.2 mm in diameter. The gallbladder is normal. There is no sonographic Tian sign. The main portal vein is antegrade. The right kidney is 9.9 cm in length. The left kidney is 10.5 cm in length. The spleen is normal. No ascites. IMPRESSION: 1. Hepatic steatosis. This document has been electronically signed by: Lonnie Alas MD on 09/20/2025 11:48:32
== END 2025-09-20 09:33 | disposition home or self-care (01) ==
LOC: HO.HMGCX 09:32
PROVIDERS: PCP Nurse Practitioner Family; Visit Provider Nurse Practitioner Family
DX: R74.8 Abnormal levels of other serum enzymes (principal)
CPT/HCPCS: 76700

== ENCOUNTER → 2025-09-20 09:43 | Outpatient (BNV) | payer MEDICARE, SELFPAY | PROVIDERS: PCP Nurse Practitioner Family; Visit Provider Specialist | DX: K76.0 Fatty (change of) liver, not elsewhere classified (principal) | CPT/HCPCS: 76700 ==